=== PATIENT | female | born 1970 | race Caucasian/White ===

== ENCOUNTER → 2017-10-31 17:54 | Outpatient (CLI) | payer MEDICAID, SELFPAY | PROVIDERS: Family Provider Family Medicine; PCP Family Medicine; Visit Provider Family Medicine | DX: N39.0 Urinary tract infection, site not specified (principal) | CPT/HCPCS: 87086; 87088; 87186 ==

== ENCOUNTER → 2017-11-13 15:00 | Outpatient (CLI) | payer MEDICAID, SELFPAY ==
[2017-11-19 11:22] LABS: HPV Reflexed? NOT INDICATED
== END ==
PROVIDERS: Family Provider Family Medicine; PCP Family Medicine; Visit Provider Family Medicine
DX: Z01.419 Encounter for gynecological examination (general) (routine) without abnormal findings (principal)
CPT/HCPCS: 88175; G0145

== ENCOUNTER 2019-02-02 03:01 | Emergency (ER) | payer MEDICAID, SELFPAY ==
[2019-02-02 03:03] VITALS: BP 142/104; PULSE 90; RESP 16; TEMP 36.7; O2SAT 97; BMI 24.9
--- NOTE | 2019-02-02 03:05 | RAD_ITS ---
STUDY: X-RAY CHEST REASON FOR EXAM: Female, 48 years old. Chest pain. TECHNIQUE: Single AP portable view of the chest. COMPARISON: June 15, 2016. FINDINGS: Cardiac monitoring leads are present. The lungs are hyperexpanded. There is mild eventration of the hemidiaphragms. There is no evidence for airspace consolidation. There is no demonstrated pleural abnormality. There is borderline cardiomegaly. Normal mediastinum and hai. Normal visualized pulmonary arteries. Normal visualized aortic arch and descending thoracic aorta. Normal visualized thoracic spine. Normal visualized ribs, clavicles, and shoulders. There is no demonstrated abnormality of the visualized soft tissue structures of the upper abdomen. RAD/Chest 1 View (Portable) IMPRESSION: No radiographic evidence of acute cardiopulmonary disease. Electronically Signed: Bonnie Walker MD at 4:02 EDT , Service support ,
--- NOTE | 2019-02-02 03:05 | EKG12_ITS ---
Test Reason : CP Blood Pressure : / mmHG Vent. Rate : 077 BPM Atrial Rate : 077 BPM P-R Int : 150 ms QRS Dur : 086 ms QT Int : 398 ms P-R-T Axes : 073 064 060 degrees QTc Int : 450 ms Normal sinus rhythm Normal ECG Confirmed by IVANA LACY, PASQUALE ([id number]), video news editor PRASAD ROSEN ([id number]) on 02/05/2019 9:07:25 AM Referred By: AMAN Confirmed By:PASQUALE HEATH MD
--- NOTE | 2019-02-02 03:17 | ED.VISSUMM ---
- ER Visit Summary Date of Service: 02/02/19 Chief Complaint: Left-sided chest pain History of Present Illness: The patient is a 48 F reportedly history of CAD with a prior AL and cardiac stent. Prior ovarian cancer with a hysterectomy. Patient states at 2:30 AM this morning she started having left-sided chest pain. Associated nausea and vomiting and dyspnea. She is never had a DVT or PE. No calf pain or swelling. No hemoptysis. No recent travel nor hospitalization. Physical Examination: Middle-aged female. Vital signs are stable. Her pulse ox is 97% on room air no signs of hypoxia. H EENT exam unremarkable. She is actively retching into emesis bag. Sons at bedside. Neck nontender no JVD. Lungs clear to auscultation bilaterally. Heart regular rhythm rate about 90 no murmur. She has reproducible chest wall pain in her left chest wall. There is no ecchymosis or bruising. No redness or warmth. Abdomen is soft and nontender. Normal bowel sounds no peritoneal signs. Patient is moving all 4 extremities. Calves are nontender without edema or cords. Equal symmetrical radial pulses. Neurologically she is awake alert with no focal motor deficits. Patient is emotionally upset and tearful. She is somewhat verbally abusive to the staff. Test Results: Portable 1 view chest x-ray showed no acute abnormality read both myself and radiologist. Normal cardiac silhouette mediastinum. EKG sinus rhythm rate 77 no acute signs of AL nor ischemia. CBC normal with a white count of 10. Hemoglobin 13. Letter lites normal. Normal creatinine and gap. Cardiac enzymes troponin normal. Alcohol level 244 consistent with acute intoxication. Emergency Department Course and Treatment: Patient will undergo cardiac work-up for her left-sided reproducible chest pain. She will also be given p.o. aspirin and IV Phenergan for her nausea. Repeat exam at 0505 patient is doing well. Resting comfortably. Her son and I discussed all of her test results and her alcohol level. He states she has been drinking tonight. He is comfortable taking her home. Treatment Plan: No alcohol next 24 hours. Tylenol and Motrin for pain. Decrease alcohol use. Disposition: Discharge Impression: Acute chest pain Chest wall pain Acute alcohol intoxication This note was generated with [employer] dictation software. It may contain incorrect words, spelling, and punctuation that were not noted in review of the chart prior to signing ED Disposition - Plan for ED Patient: Referrals: Brianna Walker MD [Primary Care Provider] -
[2019-02-02 03:18] LABS: Absolute Lymphocyte Count 6.26 X10^3/ul (0.83-4.51); Absolute Neutrophil Count 3.1 X10^3/uL (2.0-7.7); Basophil# 0.07 X10^3/uL; Basophil% 0.7 % (0-1); Differential Indicated SCAN CRITERIA MET; Eosinophil# 0.28 X10^3/uL; Eosinophils% 2.7 % (0-5); Hematocrit 39.2 % (37-47); Hemoglobin 13.8 g/dl (12.0-15.0); Lymphocyte # 6.26 X10^3/ul (4.0); Lymphocyte % 60.6 % (19-41); Mean Corp Hgb Conc 35.2 g/gl (32-36); Mean Corpuscular Hgb 30.5 pg (27.0-32.0); Mean Corpuscular Volume 86.5 fL (81-99); Mean Platelet Vol. 9.8 fl (6.2-12.0); Monocyte# 0.63 X10^3/uL; Monocyte% 6.1 % (0-10); Neutrophil # 3.08 X10^3/uL (2.7-7.7); Neutrophil % 29.8 % (47-70); POSITIVE COUNT NO; POSITIVE DIFFERENTIAL YES; POSITIVE MORPHOLOGY NO; Platelet Count 254 K/mm3 (150-450); RBC Distribution Width CV 12.8 % (11.6-14.6); RBC Distribution Width SD 39.6 fl (35.1-43.9); Red Blood Count 4.53 M/mm3 (4.2-5.4); White Blood Count 10.3 K/mm3 (4.4-11.0)
--- NOTE | 2019-02-02 03:20 | ED.DCSUM_ITS ---
- ER Visit Summary Date of Service: 02/02/19 Chief Complaint: Left-sided chest pain History of Present Illness: The patient is a 48 F reportedly history of CAD with a prior SC and cardiac stent. Prior ovarian cancer with a hysterectomy. Patient states at 2:30 AM this morning she started having left-sided chest pain. Associated nausea and vomiting and dyspnea. She is never had a DVT or PE. No calf pain or swelling. No hemoptysis. No recent travel nor hospitalization. Physical Examination: Middle-aged female. Vital signs are stable. Her pulse ox is 97% on room air no signs of hypoxia. H EENT exam unremarkable. She is actively retching into emesis bag. Sons at bedside. Neck nontender no JVD. Lungs clear to auscultation bilaterally. Heart regular rhythm rate about 90 no murmur. She has reproducible chest wall pain in her left chest wall. There is no ecchymosis or bruising. No redness or warmth. Abdomen is soft and nontender. Normal bowel sounds no peritoneal signs. Patient is moving all 4 extremities. Calves are nontender without edema or cords. Equal symmetrical radial pulses. Neurologically she is awake alert with no focal motor deficits. Patient is emotionally upset and tearful. She is somewhat verbally abusive to the staff. Test Results: Portable 1 view chest x-ray showed no acute abnormality read both myself and radiologist. Normal cardiac silhouette mediastinum. EKG sinus rhythm rate 77 no acute signs of SC nor ischemia. CBC normal with a white count of 10. Hemoglobin 13. Letter lites normal. Normal creatinine and gap. Cardiac enzymes troponin normal. Alcohol level 244 consistent with acute intoxication. Emergency Department Course and Treatment: Patient will undergo cardiac work-up for her left-sided reproducible chest pain. She will also be given p.o. aspirin and IV Phenergan for her nausea. Repeat exam at 0505 patient is doing well. Resting comfortably. Her son and I discussed all of her test results and her alcohol level. He states she has been drinking tonight. He is comfortable taking her home. Treatment Plan: No alcohol next 24 hours. Tylenol and Motrin for pain. Decrease alcohol use. Disposition: Discharge Impression: Acute chest pain Chest wall pain Acute alcohol intoxication This note was generated with [employer] dictation software. It may contain incorrect words, spelling, and punctuation that were not noted in review of the chart prior to signing ED Disposition - Plan for ED Patient: Referrals: Brianna Walker MD [Primary Care Provider] -
[2019-02-02 03:32] LABS: Anion Gap 8 (5-15); BUN 6 mg/dL (7-18); BUN/Creat Ratio 9.4 RATIO (10-20); Calcium,Total 8.7 mg/dL (8.5-10.1); Chloride 110 mmol/L (98-107); Creatinine, Serum 0.64 mg/dL (0.55-1.02); EST Glomerular Filtration Rate 105 mL/min (>60); Est Glom Filt Rate - Afr Amer 127 mL/min (>60); Estimated Creatinine Clearance 91.82 ml/min; Glucose 93 mg/dL (74-106); Potassium 3.6 mmol/L (3.5-5.1); Sodium Level 142 mmol/L (136-145)
[2019-02-02] MEDS: proMETHazine 25 MG/ML Syringe 12.5 MG IV (03:37)
[2019-02-02 03:39] VITALS: O2SAT 96
[2019-02-02] MEDS: Aspirin 81 MG TAB.CHEW 324 MG PO (03:51)
[2019-02-02 03:53] VITALS: BP 93/75; PULSE 71; RESP 22
[2019-02-02 03:56] LABS: Differential Comment SCANNED; Reactive Lymphocyte 1+
--- NOTE | 2019-02-02 05:16 | ED.DEP ---
ED Disposition - Plan for ED Patient: Disposition: Home or Assisted Living Instructions: ED Chest Pain Atypical Unkn Cause, ED Alcohol Intoxication Referrals: Ceci Sylvester MD [STAFF PHYSICIAN] - 1 Week if not improving Additional Instructions: Your tests are unremarkable other than being intoxicated. Decrease her alcohol use. Motrin for pain ice to left chest wall
[2019-02-02 05:32] VITALS: BP 88/58; PULSE 70; RESP 18; O2SAT 97
== END 2019-02-02 05:49 | disposition home or self-care (01) ==
PROVIDERS: Emergency Provider Emergency Medicine; Family Provider Pediatrics; PCP Pediatrics
DX: R07.89 Other chest pain (principal); F10.129 Alcohol abuse with intoxication, unspecified; I25.10 Atherosclerotic heart disease of native coronary artery without angina pectoris; I25.2 Old myocardial infarction; Z95.5 Presence of coronary angioplasty implant and graft; Z72.0 Tobacco use; Y90.8 Blood alcohol level of 240 mg/100 ml or more; Z85.43 Personal history of malignant neoplasm of ovary; Z90.710 Acquired absence of both cervix and uterus
CPT/HCPCS: 71045; 80048; 80320; 84484; 85025; 93005; 96374; 99285; A4216; G0480

== ENCOUNTER 2019-04-22 15:38 | Emergency (ER) | payer MEDICAID, SELFPAY ==
[2019-04-22 15:39] VITALS: BP 110/80; PULSE 76; RESP 14; TEMP 36.2; O2SAT 98; BMI 21.7
--- NOTE | 2019-04-22 15:55 | RAD_ITS ---
STUDY: X-RAY CHEST REASON FOR EXAM: Female, 48 years old. Short of breath TECHNIQUE: Single AP portable view of the chest. COMPARISON: Prior study of 02/02/2019 FINDINGS: There is a right lower lobe infiltrate. There is no demonstrated pleural abnormality. Normal size heart. Normal mediastinum and hai. Normal visualized pulmonary arteries. Normal visualized aortic arch and descending thoracic aorta. Normal visualized thoracic spine. Normal visualized ribs, clavicles, and shoulders. There is no demonstrated abnormality of the visualized soft tissue structures of the upper abdomen. RAD/Chest 1 View (Portable) IMPRESSION: Right lower lobe infiltrate, new in the interval. Electronically Signed: Sergio Cote MD at 16:18 EDT , Service support ,
--- NOTE | 2019-04-22 15:55 | EKG12_ITS ---
Test Reason : COMPLAINT Blood Pressure : / mmHG Vent. Rate : 068 BPM Atrial Rate : 068 BPM P-R Int : 144 ms QRS Dur : 080 ms QT Int : 414 ms P-R-T Axes : 064 056 056 degrees QTc Int : 440 ms Normal sinus rhythm Normal ECG Confirmed by TE RAM ([id number]), image editor PRASAD ROSEN ([id number]) on 04/24/2019 2:40:30 PM Referred By: Confirmed By:TE RAM
--- NOTE | 2019-04-22 16:07 | ED.VISSUMM ---
- ER Visit Summary Date of Service: 04/22/19 Chief Complaint: Dysuria, cough History of Present Illness: The patient is a 48 F presenting with burning with urination and cough. She states she has had burning with urination for the past 2 months. She states she initially tried Pyridium and leftover antibiotics. She states she has been busy with moving and has had persistent symptoms. She complains of a nonproductive cough for the past 3 days. She has chest pain only with deep breathing and coughing over the past 3 days. Denies PE/DVT risk factors. She is a smoker. Physical Examination: Vitals are stable. Patient is afebrile. Alert no acute distress. HEENT exam is unremarkable. Neck is supple. Lungs are clear and equal bilaterally. Heart is regular rate and rhythm. Chest tenderness to palpation with no crepitus Abdomen is soft nontender nondistended. No guarding or rebound Back bilateral CVA tenderness Extremities are unremarkable. Skin is warm and dry. No focal neurologic deficit. Remainder of exam is unremarkable. Emergency Department Course and Treatment: EKG is sinus rhythm rate of 68 with no acute ischemic changes. Chest x-ray shows right lower lobe infiltrate, new in the interval. CBC, chemistries unremarkable other than potassium 3.3, glucose 112. Urinalysis shows positive leukocytes, 5-10 white blood cells, 1+ bacteria. Troponin is negative. D-dimer negative. With ambulation her pulse ox remains 98% on room air. She is resting comfortably on reevaluation. She is given Levaquin. Advised to follow-up with Dr. Finn on-call for no doctor. Advised return to ED if worsening complaints. Disposition: Discharge home Impression: UTI, community acquired pneumonia This note was generated with [employer] dictation software. It may contain incorrect words, spelling, and punctuation that were not noted in review of the chart prior to signing ED Disposition - Plan for ED Patient: Instructions: PNEUMONIA (Adult), Bladder Infection, Female (Adult) Prescriptions: Levofloxacin [Levaquin] 750 mg PO DAILY #7 tab Prescription Printed Referrals: Lex Finn DO [NON CLINICAL AFFILIATE] -
[2019-04-22 16:24] LABS: Absolute Lymphocyte Count 2.49 X10^3/uL (0.83-4.51); Absolute Neutrophil Count 3.3 X10^3/uL (2.0-7.7); Basophil# 0.04 X10^3/uL; Basophil% 0.6 % (0-1); Eosinophil# 0.12 X10^3/uL; Eosinophils% 1.8 % (0-5); Hematocrit 39.1 % (37-47); Hemoglobin 13.5 g/dL (12.0-15.0); Lymphocyte # 2.49 X10^3/ul (4.0); Mean Corp Hgb Conc 34.5 g/dL (32-36); Mean Corpuscular Hgb 30.8 pg (27.0-32.0); Mean Corpuscular Volume 89.1 fL (81-99); Mean Platelet Vol. 10.1 fl (6.2-12.0); Monocyte# 0.58 X10^3/uL; Monocyte% 8.8 % (0-10); NRBC Flagged by Analyzer 0 % (0-5); Neutrophil # 3.31 X10^3/uL (2.7-7.7); Neutrophil % 50.5 % (47-70); Platelet Count 197 K/mm3 (150-450); RBC Distribution Width CV 12.7 % (11.6-14.6); RBC Distribution Width SD 41.3 fl (35.1-43.9); Red Blood Count 4.39 M/mm3 (4.2-5.4); White Blood Count 6.6 K/mm3 (4.4-11.0)
[2019-04-22 16:28] LABS: Mucous, Urine 0 SEEN /hpf (<or=2+); Red Blood Cells-Urine 0 SEEN /hpf (0-5)
[2019-04-22 16:37] LABS: Color, Urine Yellow (Yellow); Glucose, Dipstick Normal (Normal); Ketone-Dipstick Negative (Negative); Leukocyte Esterase-Dipstick 500 /ul (Negative); Nitrite-Dipstick Negative (Negative); Occult Blood-Urine 25 /ul (Negative); Protein-Dipstick Negative (Negative); Urine Bilirubin Dipstick Negative (Negative); Urine Clarity Clear (Clear); Urine Urobilinogen Normal (Normal)
[2019-04-22 16:41] LABS: Anion Gap 6 (5-15); BUN 8 mg/dL (7-18); BUN/Creat Ratio 11.6 RATIO (10-20); Calcium,Total 8.7 mg/dL (8.5-10.1); Chloride 110 mmol/L (98-107); Creatinine, Serum 0.69 mg/dL (0.55-1.02); EST Glomerular Filtration Rate 96 mL/min (>60); Est Glom Filt Rate - Afr Amer 116 mL/min (>60); Estimated Creatinine Clearance 85.17 ml/min; Glucose 112 mg/dL (74-106); Potassium 3.3 mmol/L (3.5-5.1); Sodium Level 141 mmol/L (136-145)
[2019-04-22 16:43] LABS: Squamous Epithelial Cells - UA 0-5 SEEN /hpf (5-10); White Blood Cells 5-10 SEEN /hpf (0-5)
[2019-04-22 16:44] LABS: Bacteria 1+ /hpf (None Seen)
[2019-04-22 16:51] LABS: D-Dimer Quantitative (DVT/PE) 0.36 FEU/ug/m (0.27-0.49)
[2019-04-22 17:51] VITALS: RESP 18; O2SAT 100
--- NOTE | 2019-04-22 17:53 | ED.DEP ---
ED Disposition - Plan for ED Patient: Instructions: Bladder Infection, Female (Adult), PNEUMONIA (Adult) Prescriptions: Levofloxacin [Levaquin] 750 mg PO DAILY #7 tablet Referrals: Lex Finn DO [NON CLINICAL AFFILIATE] -
[2019-04-22] MEDS: levoFLOXacin 750 MG Tablet PO (18:17)
== END 2019-04-22 18:23 | disposition home or self-care (01) ==
LOC: ED 16:11
PROVIDERS: Emergency Provider Emergency Medicine
DX: N39.0 Urinary tract infection, site not specified (principal); J18.9 Pneumonia, unspecified organism; I25.10 Atherosclerotic heart disease of native coronary artery without angina pectoris; Z95.5 Presence of coronary angioplasty implant and graft; F17.200 Nicotine dependence, unspecified, uncomplicated
CPT/HCPCS: 71045; 80048; 81001; 84484; 85025; 85379; 93005; 99285; A4216

== ENCOUNTER 2020-04-29 17:31 | Emergency (ER) | payer MEDICAID, SELFPAY ==
[2020-04-29 17:32] VITALS: BP 150/126; PULSE 89; RESP 20; TEMP 36.5; O2SAT 98; BMI 24.9
--- NOTE | 2020-04-29 17:43 | EKG12_ITS ---
Test Reason : Blood Pressure : / mmHG Vent. Rate : 090 BPM Atrial Rate : 090 BPM P-R Int : 132 ms QRS Dur : 082 ms QT Int : 362 ms P-R-T Axes : 074 052 056 degrees QTc Int : 442 ms Normal sinus rhythm with sinus arrhythmia Normal ECG Confirmed by DANICA LACY, SAMANTHA ([id number]), associate editor PRASAD ROSEN ([id number]) on 05/07/2020 11:16:43 A M Referred By: YAW Confirmed By:VIOLETTE MISHRA MD
--- NOTE | 2020-04-29 18:05 | RAD_ITS ---
STUDY: X-RAY CHEST REASON FOR EXAM: Female, 49 years old. chest pain TECHNIQUE: Single AP portable view of the chest. COMPARISON: April 22 2019 FINDINGS: 1.62 cm nodule is seen in the lateral aspect of the left lower lobe concerning for malignancy. This was not seen on the prior study. Evaluation with chest CT is recommended. The remaining bilateral lung shook are clear. The lungs are clear and expanded. There is no demonstrated pleural abnormality. Normal size heart. Normal mediastinum and hai. Normal visualized pulmonary arteries. Normal visualized aortic arch and descending thoracic aorta. Normal visualized thoracic spine. Normal visualized ribs, clavicles, and shoulders. There is no demonstrated abnormality of the visualized soft tissue structures of the upper abdomen. RAD/Chest 1 View (Portable) IMPRESSION: 1. 1.62 cm nodule is seen in the lateral aspect of the left lower lobe concerning for malignancy. This was not seen on the prior study. 2. Evaluation with chest CT is recommended. The remaining bilateral lung shook are clear. Electronically Signed: Venu Hollins MD at 18:36 EDT , Service support ,
[2020-04-29 18:06] LABS: Absolute Lymphocyte Count 3.56 X10^3/uL (0.83-4.51); Absolute Neutrophil Count 3.3 X10^3/uL (2.0-7.7); Basophil# 0.05 X10^3/uL; Basophil% 0.7 % (0-1); Eosinophil# 0.15 X10^3/uL; Hematocrit 44.4 % (37-47); Hemoglobin 15.2 g/dL (12.0-15.0); Lymphocyte # 3.56 X10^3/ul (4.0); Lymphocyte % 47.5 % (19-41); Mean Corp Hgb Conc 34.2 g/dL (32-36); Mean Corpuscular Volume 90.6 fL (81-99); Monocyte# 0.41 X10^3/uL; Monocyte% 5.5 % (0-10); NRBC Flagged by Analyzer 0 % (0-5); Neutrophil # 3.32 X10^3/uL (2.7-7.7); Neutrophil % 44.2 % (47-70); Platelet Count 279 K/mm3 (150-450); RBC Distribution Width CV 12.8 % (11.6-14.6); RBC Distribution Width SD 42.2 fl (35.1-43.9); White Blood Count 7.5 K/mm3 (4.4-11.0)
[2020-04-29 18:17] LABS: Prothrombin Time (Protime)PT. 12.8 SECONDS (11.7-14.9)
[2020-04-29 18:19] LABS: D-Dimer Quantitative (DVT/PE) 0.28 FEU/ug/m (0.27-0.49)
[2020-04-29 18:27] LABS: Anion Gap 4 (5-15); BUN 15 mg/dL (7-18); BUN/Creat Ratio 18.4 RATIO (10-20); Calcium,Total 9.6 mg/dL (8.5-10.1); Chloride 107 mmol/L (98-107); Creatinine, Serum 0.81 mg/dL (0.55-1.02); EST Glomerular Filtration Rate 79 mL/min (>60); Est Glom Filt Rate - Afr Amer 95 mL/min (>60); Estimated Creatinine Clearance 71.75 ml/min; Glucose 92 mg/dL (74-106); Potassium 3.6 mmol/L (3.5-5.1); Sodium Level 139 mmol/L (136-145)
[2020-04-29] MEDS: Ondansetron 4 MG/2 ML Vial IM (18:56)
--- NOTE | 2020-04-29 19:34 | CT_ITS ---
STUDY: CTA CHEST REASON FOR EXAM: Female, 49 years old. CHEST PAIN ,ELEVATED BP -- HX:HTN,NJ WITH STENT,CAD,HLD,SMOKER,CERVICAL AND OVARIAN CANCER RADIATION DOSAGE (If Supplied By Facility): CTDIvol = ( 7.69 ) mGy, DLP = ( 224.19 ) mGycm TECHNIQUE: The examination was performed with the intravenous administration of IV 100mL Isovue-370. Post-processing of the angiographic images was performed, with multiplanar reformation and 3D reconstruction. Individualized dose optimization techniques were used for this CT. COMPARISON: None. FINDINGS: Normal enhancement of the main pulmonary artery and right and left pulmonary arteries. Normal enhancement of the bilateral peripheral pulmonary arteries. There is no demonstrated pulmonary embolism. There is atherosclerotic calcification of the aortic arch with tortuosity. There is no demonstrated aortic dissection. Normal heart size and pericardium. There are endovascular stent(s) present. Normal mediastinum. Normal hilar regions. Normal visualized trachea and bronchi. The lungs are well expanded. Normal pulmonary parenchyma. No demonstrated pulmonary edema or pleural effusion or consolidation. Normal pleura. Normal chest wall structures. There are degenerative changes of thoracic spine. Normal visualized upper abdomen. CT/CTA Chest W/WO Contrast IMPRESSION: 1. No demonstrated pulmonary embolism or arterial dissection. 2. No demonstrated pulmonary edema or pleural effusion or consolidation. Electronically Signed: Venu Hollins MD at 20:38 EDT , Service support ,
[2020-04-29 20:42] VITALS: PULSE 76; RESP 18
--- NOTE | 2020-04-29 21:36 | ED.DCSUM_ITS ---
History of Present Illness Chief Complaint: Chest Pain Narrative: 49-year-old female presenting with symptoms of viral illness which have been ongoing for 2 weeks. She has had myalgias and fevers and has had chest pressure which is been constant for 3 days. She states it waxes and wanes in severity. Sometimes she gets intermittent sharp pains. She describes this as the left side of the chest but there is no radiation of the pain. She is not short of breath. She has had some episodes of nausea but she just feels rundown at this point. States initially she had a sore throat and myalgias. Her last fever was 3 days ago. She has a history of stent in the LAD and states that she has not been taking care of herself well and not been taking her medications for hyperlipidemia, hypertension, GERD. In addition to this she continues to smoke cigarettes. She states she was tested for COVID?19 and got a report back on the way to the hospital that was negative. Viral syndrome started exactly 2 weeks ago. - Past Medical History (1) HLD (hyperlipidemia) Status: Chronic (2) History of coronary artery disease Status: Chronic Past Medical History - Allergies and Home Meds Allergies/Adverse Reactions: Allergies albuterol Allergy (Mild, Verified 04/29/20 17:38) unknown penicillin V Allergy (Mild, Verified 04/29/20 17:38) unkonwn amoxicillin Allergy (Verified 04/29/20 17:38) Hives Primary Care Physician: Care Physician,No Primary [Primary Care Provider] - Past Medical History: - - MD, cardiac stent in LAD, hyperlipidemia, hypertension, GERD Surgical History: no surgical history Lives: Alone Smoking Status: Current every day smoker Alcohol: None Drugs: None Review of Systems General: Reports: Chills, Fever, Malaise Eyes: Denies: Visual changes - bilaterally, Diplopia ENT: Reports: Sore throat. Denies: Rhinorrhea Cardiovascular: Reports: Chest pain. Denies: Palpitations Respiratory: Reports: Cough, Sputum Gastrointestinal: Reports: Nausea, Vomiting Genitourinary: Denies: Dysuria, Hematuria Musculoskeletal: Reports: Myalgias. Denies: Neck pain, Back pain Skin: Denies: Rash, Abscess Neurological: Reports: Headache Physical Exam Vital Signs/Narrative: Vital Signs Pulse Resp 04/29/20 20:42 76 18 Inital Vital Signs reviewed: Yes General: Well nourished, No Acute Distress Head: Normocephalic, Atraumatic Eyes: Perrl, EOMI. Negative for: Pale conjunctiva ENT: Moist mucous membranes. Negative for: No rhinorrhea Cardiovascular: Regular rate, Regular rhythm Respiratory: No distress, CTA bilaterally, Chest nontender Extremities: Nontender, No edema Skin: Normal color, No rash. Negative for: Cyanosis Neurological: Alert, Oriented x3 Psychological: Normal affect Diagnostic/Tx/Re-eval Clinical Impression(s) from Imaging Studies Chest X-Ray 04/29/20 18:05 IMPRESSION: 1. 1.62 cm nodule is seen in the lateral aspect of the left lower lobe concerning for malignancy. This was not seen on the prior study. 2. Evaluation with chest CT is recommended. The remaining bilateral lung shook are clear. Electronically Signed: Venu Hollins MD at 18:36 EDT , Service support , Chest CTA 04/29/20 19:34 IMPRESSION: 1. No demonstrated pulmonary embolism or arterial dissection. 2. No demonstrated pulmonary edema or pleural effusion or consolidation. Electronically Signed: Venu Hollins MD at 20:38 EDT , Service support , Laboratory Data 04/29/20 04/29/20 04/29/20 17:40 17:40 17:40 WBC 7.5 RBC 4.90 Hgb 15.2 H Hct 44.4 MCV 90.6 MCH 31.0 MCHC 34.2 RDW Std Deviation 42.2 RDW Coeff of Matt 12.8 Plt Count 279 MPV 10.0 Immature Gran % (Auto) 0.100 Neut % (Auto) 44.2 L Lymph % (Auto) 47.5 H Metcalfe % (Auto) 5.5 Eos % (Auto) 2.0 Baso % (Auto) 0.7 Absolute Neuts (auto) 3.3 Absolute Lymphs (auto) 3.56 Nucleated RBC % 0 PT 12.8 INR 1.0 D-Dimer Quant (PE/DVT) 0.28 Sodium 139 Potassium 3.6 Chloride 107 Carbon Dioxide 28.0 Anion Gap 4 L BUN 15 Creatinine 0.81 Estim Creat Clear Calc 71.75 Est GFR (MDRD) Af Amer 95 Est GFR (MDRD) Non-Af 79 BUN/Creatinine Ratio 18.4 Glucose 92 Calcium 9.6 Troponin I < 0.015 - Medical Decision Making Patient presents with constant chest pressure for the last 3 days and she has been noncompliant with her medicine as well as smoking cigarettes. Heart score is 2. Her troponin was negative. EKG is sinus rhythm without signs of ischemia and there is no interval change in her EKG. Given that she has had 3 days of constant chest pain I do not believe she needs a delta troponin and EKG. Her d- dimer is negative. Lab work is otherwise unremarkable. The radiologist did believe that she had a pulmonary nodule on her chest x-ray and this was reported to the patient. Given this we did get a CT scan of the chest which did not identify a pulmonary nodule. There was no acute process on the CTA and given these findings I think the patient is stable to be discharged home. She was given a primary care physician to follow-up with. She is counseled on discontinuing smoking cessation. She was given a prescription for nicotine patches. She is given return precautions. Impression: 1. Chest pain 2. Viral syndrome 3. Concern for pulmonary nodule not found ED Disposition - Plan for ED Patient: Disposition: Home or Assisted Living Instructions: ED Viral Syndrome, ED Chest Pain [facility] Prescriptions: Nicotine [Nicotine Patch] 1 ea TD DAILY #14 patch.[id number] Prescription Printed Referrals: Care Physician,No Primary [Primary Care Provider] -
[2020-04-29 21:41] VITALS: BP 114/76; PULSE 83; RESP 18
== END 2020-04-29 21:55 | disposition home or self-care (01) ==
PROVIDERS: Emergency Provider Student in an Organized Health Care Education/Training Program
DX: R07.9 Chest pain, unspecified (principal); B34.9 Viral infection, unspecified; E78.5 Hyperlipidemia, unspecified; I10 Essential (primary) hypertension; I25.10 Atherosclerotic heart disease of native coronary artery without angina pectoris; R91.1 Solitary pulmonary nodule; K21.9 Gastro-esophageal reflux disease without esophagitis; F17.210 Nicotine dependence, cigarettes, uncomplicated; Z85.43 Personal history of malignant neoplasm of ovary; Z88.0 Allergy status to penicillin; Z95.5 Presence of coronary angioplasty implant and graft; Z91.19 Patient's noncompliance with other medical treatment and regimen
CPT/HCPCS: 71045; 71275; 80048; 84484; 85025; 85379; 85610; 93005; 99284; Q9967; A4216; J2405

== ENCOUNTER 2020-07-12 01:09 | Emergency (ER) | payer MEDICAID, SELFPAY ==
[2020-07-12 01:10] VITALS: BP 127/77; PULSE 67; RESP 18; TEMP 36.1; O2SAT 99; BMI 26.3
[2020-07-12 01:14] VITALS: BP 115/77; PULSE 69; RESP 19; O2SAT 99
--- NOTE | 2020-07-12 01:37 | EKG12_ITS ---
Test Reason : CP Blood Pressure : / mmHG Vent. Rate : 060 BPM Atrial Rate : 060 BPM P-R Int : 148 ms QRS Dur : 080 ms QT Int : 450 ms P-R-T Axes : 062 055 045 degrees QTc Int : 450 ms Normal sinus rhythm Normal ECG Confirmed by IDALMIS LACY, ARIANNA ([id number]), news assignment editor PRASAD ROSEN ([id number]) on 07/13/2020 11:34:36 AM Referred By: JEFFREY Confirmed By:ARIANNA RAYGOZA MD
--- NOTE | 2020-07-12 01:37 | ED.VIS.GEN ---
History of Present Illness Chief Complaint: Chest Pain Informant: Patient Narrative: She states she woke up an hour ago with nausea sweats and a dull achy epigastric abdominal pain. She went to the bathroom and had one episode of emesis and diarrhea. Unsure what the cause was. No bad food exposures or recent antibiotics. She recently started back up on her citalopram antidepressant. She is unsure if that is the cause. Denies any shortness of breath. She denies any actual pain in her chest. EMS gave her aspirin to be safe as she has a history of AL in the past with cardiac stent. This does not feel similar. She feels normal now. She felt better after she vomited. - Past Medical History (1) HLD (hyperlipidemia) Status: Chronic (2) History of coronary artery disease Status: Chronic Past Medical History - Allergies and Home Meds Allergies/Adverse Reactions: Allergies albuterol Allergy (Mild, Verified 04/29/20 17:38) unknown penicillin V Allergy (Mild, Verified 04/29/20 17:38) unkonwn amoxicillin Allergy (Verified 04/29/20 17:38) Hives Primary Care Physician: Care Physician,No Primary [Primary Care Provider] - Prior records reviewed: Yes Past Medical History: - - See HPI Surgical History: - - Cardiac stent Smoking Status: Current every day smoker Alcohol: None Drugs: None Review of Systems General: Denies: Chills, Fever, Sweats Eyes: Denies: Visual changes - bilaterally, Diplopia ENT: Denies: Rhinorrhea, Sore throat Cardiovascular: Denies: Chest pain, Palpitations Respiratory: Denies: Dyspnea, Cough, Dyspnea on exertion Gastrointestinal: Reports: Abdominal pain, Nausea, Vomiting, Diarrhea. Denies: Melena, Hematochezia Genitourinary: Denies: Dysuria, Hematuria, Frequency Musculoskeletal: Denies: Back pain, Extremity Pain Skin: Denies: Rash, Wounds Neurological: Denies: Headache, Weakness, Numbness Physical Exam Vital Signs/Narrative: Vital Signs Temp Pulse Resp BP Pulse Ox 07/12/20 01:14 69 19 H 115/77 99 07/12/20 01:10 96.9 F L 67 18 127/77 H 99 General: Well nourished, Well developed, No Acute Distress Head: Normocephalic, Atraumatic Eyes: Perrl, EOMI ENT: Moist mucous membranes, No rhinorrhea Neck: Supple, Nontender Cardiovascular: Regular rate, Regular rhythm, No murmurs Respiratory: No distress, CTA bilaterally, Chest nontender Abdomen: Soft, Nontender, Nondistended, Normal bowel sounds Back: Nontender, Normal Inspection Extremities: Nontender, No edema Skin: Normal color, No rash Neurological: Alert, Oriented x3, Cranial nerves II-XII grossly intact, Normal Strength, Normal Sensation Psychological: Normal affect, Normal Mood Diagnostic/Tx/Re-eval - Medical Decision Making EKG obtained upon arrival shows sinus rhythm at a rate of 60 with no acute ischemia or arrhythmia. Given IV fluids Zofran. Lab work obtained. Work unremarkable including CBC BMP liver lipase troponin. Given GI cocktail also for sour stomach which relieved her symptoms. I suspect this is GI related and not cardiac. She may have a mild case of gastroenteritis. Will be given Zofran for home. Will use [id number] Pepto-Bismol Imodium follow-up as an outpatient ED Disposition - Plan for ED Patient: Disposition: Home or Assisted Living Diagnosis: Nausea and vomiting, Diarrhea, Abdominal pain Instructions: ED Vomiting and Diarrhea Nonspecific Adult Prescriptions: Ondansetron [Zofran Odt] 8 mg PO Q8H PRN PRN #20 tab PRN Reason: Nausea Prescription Printed Referrals: Daniel Powers MD [STAFF PHYSICIAN] -
[2020-07-12] MEDS: 0.9% Normal Saline 1,000 ML 1000 ML IV (01:43)
[2020-07-12] MEDS: Ondansetron 4 MG/2 ML Vial IV (01:43)
[2020-07-12 01:45] LABS: Absolute Lymphocyte Count 6.13 X10^3/uL (0.83-4.51); Absolute Neutrophil Count 3.4 X10^3/uL (2.0-7.7); Basophil# 0.09 X10^3/uL; Basophil% 0.8 % (0-1); Eosinophil# 0.26 X10^3/uL; Eosinophils% 2.5 % (0-5); Hematocrit 44.6 % (37-47); Hemoglobin 14.8 g/dL (12.0-15.0); Lymphocyte # 6.13 X10^3/ul (4.0); Lymphocyte % 57.9 % (19-41); Mean Corp Hgb Conc 33.2 g/dL (32-36); Mean Corpuscular Hgb 30.9 pg (27.0-32.0); Mean Corpuscular Volume 93.1 fL (81-99); Mean Platelet Vol. 9.8 fl (6.2-12.0); Monocyte# 0.63 X10^3/uL; Monocyte% 5.9 % (0-10); NRBC Flagged by Analyzer 0 % (0-5); Neutrophil # 3.43 X10^3/uL (2.7-7.7); Neutrophil % 32.4 % (47-70); POSITIVE DIFFERENTIAL YES; Platelet Count 261 K/mm3 (150-450); RBC Distribution Width CV 13.2 % (11.6-14.6); RBC Distribution Width SD 44.6 fl (35.1-43.9); Red Blood Count 4.79 M/mm3 (4.2-5.4); White Blood Count 10.6 K/mm3 (4.4-11.0)
[2020-07-12 01:46] LABS: Differential Indicated SCAN CRITERIA MET
[2020-07-12 02:00] LABS: ALB/GLOB Ratio 0.8 RATIO (0.9-2.4); AST(SGOT) 14 U/L (15-37); Alanine Aminotransfer ALT/SGPT 20 U/L (13-56); Albumin, Serum 3.6 g/dL (3.2-5.0); Alkaline Phosphatase 84 U/L (45-117); Anion Gap 5 (5-15); BUN 13 mg/dL (7-18); BUN/Creat Ratio 18.7 RATIO (10-20); Calcium,Total 8.7 mg/dL (8.5-10.1); Chloride 107 mmol/L (98-107); EST Glomerular Filtration Rate 94 mL/min (>60); Est Glom Filt Rate - Afr Amer 114 mL/min (>60); Estimated Creatinine Clearance 86.52 ml/min; Globulin 4.4 g/dL (2.2-4.2); Glucose 110 mg/dL (74-106); Lipase 249 U/L (73-393); Potassium 3.7 mmol/L (3.5-5.1); Sodium Level 139 mmol/L (136-145)
[2020-07-12 02:03] LABS: Differential Comment SCANNED
[2020-07-12] MEDS: Mag Hydrox/Al Hydrox/Simeth 30 ML UDC PO (02:21)
[2020-07-12 02:39] VITALS: BP 130/70; PULSE 74; RESP 24; O2SAT 99
== END 2020-07-12 02:40 | disposition home or self-care (01) ==
PROVIDERS: Emergency Provider Emergency Medicine
DX: R11.2 Nausea with vomiting, unspecified (principal); R19.7 Diarrhea, unspecified; R10.9 Unspecified abdominal pain; E78.5 Hyperlipidemia, unspecified; I25.10 Atherosclerotic heart disease of native coronary artery without angina pectoris; I25.2 Old myocardial infarction; F17.200 Nicotine dependence, unspecified, uncomplicated; Z88.0 Allergy status to penicillin; Z95.5 Presence of coronary angioplasty implant and graft
CPT/HCPCS: 80053; 83690; 84484; 85025; 93005; 99285; J7030; A4216; J2405

== ENCOUNTER 2021-08-07 14:47 | Inpatient (IN) | payer MEDICAID, SELFPAY ==
[2021-08-07] VITALS (7 sets, daily range): BP systolic 134–151; BP diastolic 81–98; PULSE 70–89; RESP 14–19; TEMP 36.3–36.6; O2SAT 96–100; BMI 27.1; BMI 25.9
--- NOTE | 2021-08-07 15:04 | EKG12_ITS ---
Test Reason : CP Blood Pressure : / mmHG Vent. Rate : 057 BPM Atrial Rate : 057 BPM P-R Int : 164 ms QRS Dur : 086 ms QT Int : 434 ms P-R-T Axes : 012 033 026 degrees QTc Int : 422 ms Sinus bradycardia Otherwise normal ECG Confirmed by IVANA LACY, PASQUALE ([id number]), video editor PRASAD ROSEN ([id number]) on 08/10/2021 8:58:45 AM Referred By: NAOMY/SHONNA Confirmed By:PASQUALE HEATH MD
[2021-08-07 15:18] LABS: Absolute Lymphocyte Count 5.91 X10^3/uL (0.83-4.51); Absolute Neutrophil Count 6.8 X10^3/uL (2.0-7.7); Basophil% 0.7 % (0-1); Eosinophil# 0.12 X10^3/uL; Eosinophils% 0.9 % (0-5); Hematocrit 44.8 % (37-47); Hemoglobin 15.3 g/dL (12.0-15.0); Lymphocyte # 5.91 X10^3/ul (0.83-4.51); Lymphocyte % 43.8 % (19-41); Mean Corp Hgb Conc 34.2 g/dL (32-36); Mean Corpuscular Hgb 30.1 pg (27.0-32.0); Mean Platelet Vol. 10.6 fl (6.2-12.0); Monocyte# 0.44 X10^3/uL; Monocyte% 3.3 % (0-10); NRBC Flagged by Analyzer 0 % (0-5); Neutrophil # 6.84 X10^3/uL (2.7-7.7); Neutrophil % 50.8 % (47-70); POSITIVE DIFFERENTIAL YES; Platelet Count 316 K/mm3 (150-450); RBC Distribution Width CV 12.9 % (11.6-14.6); RBC Distribution Width SD 41.8 fl (35.1-43.9); Red Blood Count 5.09 M/mm3 (4.2-5.4); White Blood Count 13.5 K/mm3 (4.4-11.0)
[2021-08-07] MEDS: Morphine 4 MG/ML Syringe IV ×2 (15:23→16:25)
[2021-08-07] MEDS: Ondansetron 4 MG/2 ML Vial IV ×2 (15:23→23:19)
[2021-08-07] MEDS: Aspirin 81 MG TAB.CHEW 324 MG PO (15:23)
--- NOTE | 2021-08-07 15:25 | RAD_ITS ---
STUDY: X-RAY CHEST REASON FOR EXAM: Female, 51 years old. chest pain nausea vomiting and chills TECHNIQUE: Frontal portable view of the chest COMPARISON: 29 April 2020 FINDINGS: The lungs are clear and expanded. There is no demonstrated pleural abnormality. Normal size heart. Normal mediastinum and hai. Normal visualized pulmonary arteries. Normal visualized aortic arch and descending thoracic aorta. Normal visualized thoracic spine. Normal visualized ribs, clavicles, and shoulders. There is no demonstrated abnormality of the visualized soft tissue structures of the upper abdomen. RAD/Chest 1 View (Portable) IMPRESSION: Normal x-ray examination of the chest. Electronically Signed: Reza Antonio MD at 16:04 EST Tel , Service support ,
[2021-08-07 15:27] LABS: Differential Indicated SCAN CRITERIA MET
[2021-08-07 15:33] LABS: Anion Gap 9 (5-15); BUN 6 mg/dL (7-18); BUN/Creat Ratio 7.5 RATIO (10-20); Calcium,Total 9.9 mg/dL (8.5-10.1); Chloride 109 mmol/L (98-107); EST Glomerular Filtration Rate 80 mL/min (>60); Est Glom Filt Rate - Afr Amer 97 mL/min (>60); Estimated Creatinine Clearance 71.03 ml/min; Glucose 105 mg/dL (74-106); Potassium 2.9 mmol/L (3.5-5.1); Sodium Level 142 mmol/L (136-145); Troponin-I HS 65 pg/mL (3.0-54.0)
[2021-08-07 15:52] LABS: Differential Comment SCANNED
[2021-08-07] MEDS: proMETHazine 25 MG/ML Syringe 12.5 MG IM (16:24)
[2021-08-07 17:17] LABS: Magnesium 1.9 mg/dL (1.6-2.6); Troponin-I HS 105 pg/mL (3.0-54.0)
--- NOTE | 2021-08-07 17:50 | EDS_ITS ---
HPI History of Present Illness Chief Complaint: General Illness Narrative Narrative: Patient has chest pain for 2 days. History of coronary disease. Stent placed 10 years ago. 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 She said she is compliant with her medications. History of elevated cholesterol. Denies any history of DVT or PE. Denies any history of aortic disease. She did have a CTA of her chest about a year ago. Her last stress test was many years ago. She has some associated chills and nausea. No other associated symptoms. Nothing seems to make this better or worse. PFSH PFSH Medical History Heart disease Home Medications nicotine 1 ea TD DAILY #14 patch.td24 04/29/20 [Rx Last Taken Unknown] ondansetron 8 mg PO Q8H PRN PRN #20 tab 07/12/20 [Rx Last Taken Unknown] Allergy/AdvReac Type Severity Reaction Status Date / Time albuterol Allergy Mild unknown Verified 08/07/21 14:52 penicillin V Allergy Mild unkonwn Verified 08/07/21 14:52 amoxicillin Allergy Hives Verified 08/07/21 14:52 Family History Other Arthritis CVA (cerebral vascular accident) Cancer Hypertension Myocardial infarction Surgical History History of intravascular stent placement Social History Smoking Status: Current every day smoker tobacco type: cigarettes Tobacco: How many years used: 30 ROS ROS ED Constitutional Constitutional ED: Reports chills; Denies fever(s) Eyes Eyes: Denies change in vision ENT ENT ED: Denies ear pain Cardiovascular Cardiovascular: Reports chest pain; Denies palpitations or racing heartbeat Respiratory/Chest Respiratory/Chest: Denies cough or dyspnea Gastrointestinal Gastrointestinal: Reports nausea; Denies abdominal pain Genitourinary Genitourinary ED: Denies dysuria or hematuria Musculoskeletal Musculoskeletal: Denies arthralgias or myalgias Integumentary Denies rash Neurologic Neurologic: Denies headache(s), paresthesias or weakness Psychiatric Psychiatric: Denies depression Endocrine Endocrinology: Denies polyuria Allergic/Immunologic Allergic/Immunologic ED: Denies urticaria EXAM Physical Exam Const Vital Signs: 08/07/21 14:48 08/07/21 14:52 08/07/21 15:04 Temperature 97.8 F Temperature Source Oral Pulse Rate 70 Respiratory Rate 18 Respiratory Effort Normal Respiratory Pattern Normal Blood Pressure 134/98 H Blood Pressure Mean 110 Pulse Ox 100 Oxygen Delivery Method Room Air Room Air 08/07/21 16:55 Temperature Temperature Source Pulse Rate 73 Respiratory Rate 19 H Respiratory Effort Respiratory Pattern Blood Pressure 151/82 H Blood Pressure Mean 105 Pulse Ox 96 Oxygen Delivery Method Room Air Positive well nourished and well developed General Appearance ED: well developed HEENT Negative for trauma or tenderness Eyes PERRL and EOMs intact bilaterally Neck supple Resp normal respiratory effort and clear to auscultation bilaterally Cardio regular rate and regular rhythm GI normal to inspection, nondistended, normoactive bowel sounds and non-tender Palpation: soft Extremity normal to inspection General Extremety ED: Negative for edema, tenderness or other findings General Extremity: Negative for edema or other findings Neuro oriented x3 Sensorium / Orientation: alert Psych mental status grossly normal Skin no rashes or lesions noted and no wounds MDM MDM MDM Narrative Medical decision making narrative: EKG shows sinus rhythm at a rate of 57. No sign of acute ischemia or infarction pattern. This was interpreted by me extremity directed the patient care in the emergency department. Chest x-ray showed nothing acute. This was interpreted by me and the radiologist. Labs below. White count 13.5. Initial potassium 2.9. This was replaced. Magnesium was 1.9. Initial troponin 65 and repeat 2-hour troponin was 105. Patient was treated with medication for pain as well as aspirin. On reevaluation, vitals are stable, pain has improved. Last stress test was years ago. She does have a stent that was placed about 10 years ago. Because of this, her chest pain, and the elevating troponin, I will call the hospitalist to admit. Hospitalist also requested a urinalysis given her white count of 13.5. Patient is not septic or in shock. Impression #1 chest pain Impression #2 hypokalemia Impression #3 leukocytosis Lab Data Attestation: I reviewed the patient's lab results. Labs: Laboratory Results - last 24 hr 08/07/21 08/07/21 08/07/21 14:55 14:55 16:50 WBC 13.5 H RBC 5.09 Hgb 15.3 H Hct 44.8 MCV 88.0 MCH 30.1 MCHC 34.2 RDW Std Deviation 41.8 RDW Coeff of Matt 12.9 Plt Count 316 MPV 10.6 Immature Gran % (Auto) 0.500 Neut % (Auto) 50.8 Lymph % (Auto) 43.8 H [place] % (Auto) 3.3 Eos % (Auto) 0.9 Baso % (Auto) 0.7 Absolute Neuts (auto) 6.8 Absolute Lymphs (auto) 5.91 H Nucleated RBC % 0 Differential Comment SCANNED Sodium 142 Potassium 2.9 L Chloride 109 H Carbon Dioxide 24.0 Anion Gap 9 BUN 6 L Creatinine 0.80 Estim Creat Clear Calc 71.03 Est GFR (MDRD) Af Amer 97 Est GFR (MDRD) Non-Af 80 BUN/Creatinine Ratio 7.5 L Glucose 105 Calcium 9.9 Magnesium 1.9 Troponin I High Sens 65 H 105 H Radiography Diagnostic Testing: Clinical Impression(s) from Imaging Studies Chest X-Ray 08/07/21 15:25 IMPRESSION: Normal x-ray examination of the chest. Electronically Signed: Reza Antonio MD at 16:04 EST Tel , Service support , Discharge Plan Triage Chief Complaint: General Illness ED Provider: Jamie Young Dx/Rx/DC Orders Prescriptions: No Action nicotine 7 MG patch 24 hour 1 ea TD DAILY Qty: 14 RF: 0 ondansetron 4 MG tablet 8 mg PO Q8H PRN PRN (Reason: Nausea) Qty: 20 RF: 0 Primary Care Provider: Care Physician,No Primary
--- NOTE | 2021-08-07 18:08 | HP.PCM.HOS_ITS ---
Documented by User: Kan FABIAN 08/07/21 18:27 HPI - General HPI Narrative BRANT LANTIGUA is a 51-year-old female who presents to the ED at [facility] on 08/07/2021 with a chief complaint of chest pain and shortness of breath. Patient reports that while she was at [employer] this morning she began to develop a crushing midsternal chest pain that she rated at about a 9 out of 10. Patient also began to develop intermittent shortness of breath and vomiting. Denies palpitations, hemoptysis, sputum production, fever, chills, nausea or diarrhea. Patient reports that her chest pain and shortness of breath both made worse with exertion and improved with rest. Patient's pain was responsive to morphine given in the ED. Of note, patient lives with her granddaughter who recently came out of COVID-19 quarantine. Rapid Covid obtained in the ED was negative. Past medical history is significant for STEMI with stent placement about 10 years ago. Patient reports that she follows with a supervisor lime in [place], [place]. Vital signs in the ED are temperature of 97.8 ?F, HR of 70, BP of 134/98, RR of 18 and patient is currently satting 100% on room air. CBC demonstrates WBCs at 13.5, hemoglobin of 15.3 and platelets at 316. BMP demonstrates a potassium of 2.9, but is otherwise unremarkable. Initial high-sensitivity opponent's elevated at 65 and 105 respectively. Chest x-ray did not demonstrate any acute cardiopulmonary pathology. EKG obtained in the ED was normal sinus rhythm at a rate of 57. Demonstrated no evidence of ischemia or infarction. [facility] Medical History (Updated 08/07/21 @ 18:19 by Kan FABIAN) GERD (gastroesophageal reflux disease) Heart disease Hypertension STEMI (ST elevation myocardial infarction) Allergy/AdvReac Type Severity Reaction Status Date / Time albuterol Allergy Mild unknown Verified 08/07/21 14:52 penicillin V Allergy Mild unkonwn Verified 08/07/21 14:52 amoxicillin Allergy Hives Verified 08/07/21 14:52 Family History Other Arthritis CVA (cerebral vascular accident) Cancer Hypertension Myocardial infarction other (Patient reports that her mother & father had everything, but was not able to provide specifics. ) Surgical History History of hysterectomy History of intravascular stent placement Social History (Updated 08/07/21 @ 18:17 by Kan FABIAN) Smoking Status: Current every day smoker tobacco type: cigarettes Smoking packs per day: 0.25 Smoking cigarettes per day: 5.0 Years smoked: 30 Smoking pack- years: 7.50 Tobacco: How many years used: 30 substance use type: marijuana ROS Constitutional Constitutional: Denies anorexia, change in weight, chills, fatigue, fever(s), malaise, night sweats, weakness or other Eyes Eyes: Denies blurry vision, change in eye color, change in vision, discharge from eye(s), double vision, erythema, eye pain, loss of vision or other ENT HEENT: Denies abnormal hearing, dysphagia, ear pain, epistaxis, headache(s), hearing loss, nasal congestion, nasal discharge, post nasal drip, sinus pressure, sore throat or other Cardiovascular Cardiovascular: Reports chest pain and dyspnea on exertion; Denies claudication, edema, lightheadedness, orthopnea, palpitations, paroxysmal nocturnal dyspnea, rapid heart rate, syncope or other Respiratory/Chest Respiratory/Chest: Reports dyspnea, shortness of breath at rest and shortness of breath with exertion; Denies cough, excessive phlegm production, hemoptysis, productive cough, wheezing or other Gastrointestinal Gastrointestinal: Reports vomiting; Denies abdominal pain, coffee ground emesis, constipation, diarrhea, dyspepsia, hematemesis, hematochezia, loose stools, melena, nausea or other Genitourinary Genitourinary: Denies burning urination, difficulty urinating, dysuria, hematuria, nocturia, urinary frequency, urinary hesitancy, urinary incontinence, urinary urgency or other Musculoskeletal Musculoskeletal: Denies arthralgias, back pain, joint pain, joint stiffness, joint swelling, myalgias, neck pain or other Neurologic Neurologic: Denies abnormal gait, abnormal speech, confusion, disequilibrium, dizziness, focal weakness, headache(s), numbness, paresthesias, seizure-like activity, seizures, syncope, tingling, tremor(s) or other Psychiatric Psychiatric: Denies anxiety, depression, homicidal ideation, suicidal ideation or other Endocrine Endocrinology: Denies change in body appearance, cold intolerance, excessive sweating, heat intolerance, polydipsia, polyuria or other Hematologic/Lymphatic Hematologic/Lymphatic: Denies anemia, easy bleeding, easy bruising, lymphadenopathy or other Allergic/Immunologic Allergic/Immunologic: Denies rhinitis, hives, eczemia, asthma or other Vital Signs Vital Signs Vital Signs: 08/07/21 14:48 08/07/21 14:52 08/07/21 15:04 Temperature 97.8 F Temperature Source Oral Pulse Rate 70 Respiratory Rate 18 Respiratory Effort Normal Respiratory Pattern Normal Blood Pressure 134/98 H Blood Pressure Mean 110 Pulse Ox 100 Oxygen Delivery Method Room Air Room Air 08/07/21 16:55 08/07/21 18:05 Temperature Temperature Source Pulse Rate 73 74 Respiratory Rate 19 H 16 Respiratory Effort Respiratory Pattern Blood Pressure 151/82 H 146/87 H Blood Pressure Mean 105 106 Pulse Ox 96 97 Oxygen Delivery Method Room Air Room Air Weight Weight: 158 lb 4.67 oz Body Mass Index (BMI) 27.1 Physical Exam Const alert and oriented x3 General Appearance: cooperative HEENT normocephalic, head/scalp atraumatic and hearing grossly normal bilaterally Eyes PERRL, EOMs intact bilaterally and conjunctivae normal Neck no lymphadenopathy, supple and no JVD Resp normal respiratory effort, no retractions, no use of accessory muscles and clear to auscultation bilaterally Cardio regular rate, regular rhythm, no murmurs and no JVD GI normal to inspection, nondistended, normoactive bowel sounds, soft to palpation and non-tender GI Narrative: Actively vomiting on examination. Extremity normal to inspection, full ROM and no clubbing, cyanosis or edema Skin no rashes or lesions noted, no wounds and skin turgor normal Neuro CN's II-XII intact bilaterally Psych affect normal Results Lab / Micro Data Result Diagrams: 08/07/21 14:55 08/07/21 14:55 Labs: Laboratory Results - last 24 hr 08/07/21 14:55: WBC 13.5 H, RBC 5.09, Hgb 15.3 H, Hct 44.8, MCV 88.0, MCH 30.1, MCHC 34.2, RDW Std Deviation 41.8, RDW Coeff of Matt 12.9, Plt Count 316, MPV 10.6, Immature Gran % (Auto) 0.500, Neut % (Auto) 50.8, Lymph % (Auto) 43.8 H, [place] % (Auto) 3.3, Eos % (Auto) 0.9, Baso % (Auto) 0.7, Absolute Neuts (auto) 6.8, Absolute Lymphs (auto) 5.91 H, Nucleated RBC % 0, Differential Comment SCANNED 08/07/21 14:55: Sodium 142, Potassium 2.9 L, Chloride 109 H, Carbon Dioxide 24.0, Anion Gap 9, BUN 6 L, Creatinine 0.80, Estim Creat Clear Calc 71.03, Est GFR (MDRD) Af Amer 97, Est GFR (MDRD) Non-Af 80, BUN/Creatinine Ratio 7.5 L, Glucose 105, Calcium 9.9, Troponin I High Sens 65 H 08/07/21 16:50: Magnesium 1.9, Troponin I High Sens 105 H Micro: Microbiology 08/07/21 15:27 Nasal Secretion SARS-CoV-2 Antigen (Rapid) - Final Radiology Impression Chest X-Ray 08/07/21 15:25 IMPRESSION: Normal x-ray examination of the chest. Electronically Signed: Reza Antonio MD at 16:04 EST Tel , Service support , Assessment & Plan Assessment/Plan (1) Chest pain: (2) Cardiac enzymes elevated: (3) UTI (urinary tract infection): PLAN: Patient presents to the ED at [facility] on with a chief complaint of chest pain. Patient will be admitted for evaluation and management of chest pain. 1) chest pain with elevated cardiac enzymes Patient presents with a 1 day history of crushing midsternal chest pain which she rated at a 9 out of 10 prior to ED visit. Patient's past medical history is significant for STEMI with stent placement 10 years ago. Patient reports that she follows with a supervisor lime in [place], [place]. EKG was unremarkable and did not demonstrate any evidence of acute ischemia or infarction. Chest x-ray was unremarkable. High-sensitivity troponins elevated at 65 and 105 respectively. Heart score is 5: History, age, risk factors and troponins. Plan; admit to PCU for cardiac monitoring, cardiology consult ordered, continue to trend high-sen sitivity troponins, cardiac diet ordered, CBC and BMP in a.m., lipid profile ordered, continue home aspirin and statin. 2) suspected UTI Patient has a significant history of prior UTIs. Patient does not complain of any urinary symptoms however is with a leukocytosis and is vomiting on my exam. Patient is afebrile and other vital signs are stable. UA ordered/pending. Will initiate management based off of UA. 3) COVID-19 exposure Patient lives with her granddaughter who recently completed a COVID-19 quarantine. Patient is without any respiratory complaints however is actively vomiting on my examination. Rapid Covid is negative. Chest x-ray without any acute findings suggestive of COVID-19 pneumonia. Continue to monitor. CODE STATUS: Full code DVT prophylaxis - Heparin Vaccination status: Patient does not wish to receive COVID-19 vaccine while admitted, despite the known benefits. Patient was not interested in receiving information about the COVID-19 vaccine. Patient seen by Kan Gillette PA-C, under the supervision of Dr. Mason. Documented by User: Dr. Inocente Mason MD 08/07/21 18:49 HPI - General General Date of Admission: 08/07/21 [facility] Medical History (Updated 08/07/21 @ 18:19 by Kan FABIAN) GERD (gastroesophageal reflux disease) Heart disease Hypertension STEMI (ST elevation myocardial infarction) Allergy/AdvReac Type Severity Reaction Status Date / Time albuterol Allergy Mild unknown Verified 08/07/21 14:52 penicillin V Allergy Mild unkonwn Verified 08/07/21 14:52 amoxicillin Allergy Hives Verified 08/07/21 14:52 Family History Other Arthritis CVA (cerebral vascular accident) Cancer Hypertension Myocardial infarction Surgical History History of hysterectomy History of intravascular stent placement Social History (Updated 08/07/21 @ 18:17 by Kan FABIAN) Smoking Status: Current every day smoker tobacco type: cigarettes Smoking packs per day: 0.25 Smoking cigarettes per day: 5.0 Years smoked: 30 Smoking pack- years: 7.50 Tobacco: How many years used: 30 substance use type: marijuana Results Lab / Micro Data Result Diagrams: 08/07/21 14:55 08/07/21 14:55 Charges/Coding Addendum Addendum: Dr. Mason: I personally reviewed the chart and examined the patient, and agree with the above findings. 49-year-old female presenting with chest pain that is substernal and radiates to her shoulders. She has had a history of previous cardiac stents and when asked why she is not on aspirin is because she forgot to take it and is never refilled it. Unfortunate she is also a continued smoker. She has been having some nausea and vomiting today but denies any abdominal pain she denies any shortness of breath or lightheadedness and does not have a signif icant cough. Her rapid Covid antigen was negative and her chest x-ray was unremarkable. We will trend her troponins and start her on a heparin drip, and will consult cardiology for possible heart cath since her initial troponin was 65 and climbed to 105. She also does have a white blood cell count of 13.5 and though she denies any dysuria, she does have a significant previous history of urinary tract infections therefore will obtain a UA and if positive will obtain a urine culture and start her on antibiotics. Visit Charges Inpatient E&M: 72319 Init Hosp L3
[2021-08-07] MEDS: Potassium Chloride Oral Tablet 20 MEQ 60 MEQ PO (18:41)
[2021-08-07 19:08] LABS: International Normalized Ratio 1.1; Prothrombin Time (Protime)PT. 13.7 SECONDS (11.7-14.9)
[2021-08-07 19:09] LABS: Partial Thromboplast Time 24.2 Seconds (24.1-36.2)
--- NOTE | 2021-08-07 19:24 | PCS.PANDOC ---
PANDEMIC DOCUMENTATION INITIATED: Date: 04/25/2021 Time: 190
[2021-08-07] MEDS: Heparin Injection (Vial) 5,000 UNIT/ML VIAL 4000 UNIT IV (19:55)
[2021-08-07] MEDS: HEPARIN/D5w 25,000 UNITS 25,000 UNITS/250 ML IV.SOLN. 8 UNITS IV (19:56)
[2021-08-07] MEDS: 0.9% Saline Lock 10 ML Syringe IV ×2 (19:57→23:19)
[2021-08-07 21:37] LABS: Troponin-I HS 2287 pg/mL (3.0-54.0)
[2021-08-08] VITALS (26 sets, daily range): BP systolic 104–156; BP diastolic 68–106; PULSE 67–96; RESP 17–25; TEMP 36.6–37.7; O2SAT 96–100
[2021-08-08] MEDS: 0.9% Saline Lock 10 ML Syringe IV ×5 (02:12→07:27)
[2021-08-08 02:21] LABS: Absolute Lymphocyte Count 2.23 X10^3/uL (0.83-4.51); Absolute Neutrophil Count 11.3 X10^3/uL (2.0-7.7); Basophil# 0.03 X10^3/uL; Basophil% 0.2 % (0-1); Hematocrit 42.9 % (37-47); Lymphocyte # 2.23 X10^3/ul (0.83-4.51); Mean Corpuscular Hgb 30.4 pg (27.0-32.0); Monocyte# 0.35 X10^3/uL; Monocyte% 2.5 % (0-10); NRBC Flagged by Analyzer 0 % (0-5); Neutrophil # 11.27 X10^3/uL (2.7-7.7); Neutrophil % 80.9 % (47-70); Platelet Count 289 K/mm3 (150-450); RBC Distribution Width CV 13.2 % (11.6-14.6); RBC Distribution Width SD 41.6 fl (35.1-43.9); Red Blood Count 4.93 M/mm3 (4.2-5.4); White Blood Count 13.9 K/mm3 (4.4-11.0)
[2021-08-08 02:23] LABS: Partial Thromboplast Time 28.2 Seconds (24.1-36.2)
[2021-08-08] MEDS: proCHLORPERazine 10 MG/2 ML Vial 5 MG IM (02:35)
[2021-08-08 02:49] LABS: Anion Gap 7 (5-15); BUN 9 mg/dL (7-18); BUN/Creat Ratio 10.1 RATIO (10-20); Calcium,Total 9.8 mg/dL (8.5-10.1); Chloride 109 mmol/L (98-107); Cholesterol 153 mg/dL (200); Creatinine, Serum 0.89 mg/dL (0.55-1.02); EST Glomerular Filtration Rate 71 mL/min (>60); Est Glom Filt Rate - Afr Amer 86 mL/min (>60); Estimated Creatinine Clearance 63.85 ml/min; Glucose 145 mg/dL (74-106); High Density Lipoprotein 46 mg/dL; Potassium 3.9 mmol/L (3.5-5.1); Sodium Level 141 mmol/L (136-145); Triglycerides 86 mg/dL; Very Low Density Lipoprotein 17 mg/dL (5-40)
[2021-08-08] MEDS: Heparin Injection (Vial) 5,000 UNIT/ML VIAL IV (03:10)
--- NOTE | 2021-08-08 05:00 | EKG12_ITS ---
Test Reason : AM EKG Blood Pressure : / mmHG Vent. Rate : 084 BPM Atrial Rate : 084 BPM P-R Int : 154 ms QRS Dur : 082 ms QT Int : 388 ms P-R-T Axes : 061 034 079 degrees QTc Int : 458 ms Normal sinus rhythm Septal infarct , age undetermined T wave abnormality, consider anterolateral ischemia Abnormal ECG When compared with ECG of 07-AUG-2021 14:54, MANUAL COMPARISON REQUIRED, DATA IS UNCONFIRMED Confirmed by IDALMIS LACY, ARIANNA ([id number]), legal editor PRASAD ROSEN ([id number]) on 08/09/2021 9:23:34 AM Referred By: ANA LILIA Confirmed By:ARIANNA RAYGOZA MD
[2021-08-08] MEDS: Potassium Chloride Oral Tablet 10 MEQ PO (05:35)
[2021-08-08] MEDS: Aspirin 81 MG TAB.CHEW PO (05:37)
[2021-08-08] MEDS: Ondansetron 4 MG/2 ML Vial IV (07:27)
--- NOTE | 2021-08-08 07:50 | PCM.CONS.C ---
Assessment & Plan Assessment/Plan (1) Chest pain: PLAN: Patient with a known history of coronary artery disease presents with chest discomfort which is suggestive of angina with abnormal cardiac enzyme elevation. In addition patient is noted to have nonsustained ventricular tachyarrhythmia. The plan at this time would be to restart her aspirin, restart beta-missy, continue intravenous amiodarone for now and schedule for left heart catheterization. The risk benefits and alternatives have been explained to her she understands and agrees to proceed. Addendum: Cardiac catheterization demonstrated normal left main coronary artery. Left anterior descending artery previously stent totally occluded. First diagonal vessel with 90% stenosis. Left circumflex artery with mild disease. Right coronary artery with 50% mid segment stenosis. Left ventricular systolic dysfunction with estimated EF 40% with anterior apical hypokinesis. Based on the above angiographic findings would consider angioplasty and stenting to the left anterior descending artery. Thank you for allowing me to participate in the care of your patient. Please don't hesitate to call if any issues arise. HPI Consult Data Date of Consult: 08/08/21 HPI Narrative HPI Narrative: BRANT LANTIGUA, is a 51 F who presents to the emergency room with chest discomfort. She states that while she was at [employer] she started developing crushing midsternal chest discomfort and also developed intermittent shortness of breath and nausea. Rapid Covid obtained in the ED was negative. Past medical history is significant for STEMI with stent placement about 10 years ago. She has not followed up with a nurse emergency room here recently. She denies any dizziness or diaphoresis near syncope or syncope, and she says that she is compliant with her medications. She presented to the emergency room and was noted to be pain-free at that time. Laboratory tests were significant for a low potassium, but EKG did not demonstrate any significant abnormalities. On the telemetry floor however patient developed nonsustained ventricular tachyarrhythmia and was started on intravenous amiodarone. Cardiology was called for further evaluation and management. [facility] Medical History GERD (gastroesophageal reflux disease) Heart disease Hypertension STEMI (ST elevation myocardial infarction) Home Medications atorvastatin 80 mg PO DAILY 08/07/21 [History Last Taken Unknown] citalopram 20 mg PO DAILY 08/07/21 [History Last Taken Unknown] lisinopril 08/07/21 [History Last Taken Unknown] metoprolol tartrate 25 mg PO BID 08/07/21 [History Last Taken Unknown] omeprazole 20 mg PO BREAKFAST 08/07/21 [History Last Taken Unknown] Allergy/AdvReac Type Severity Reaction Status Date / Time albuterol Allergy Mild unknown Verified 08/07/21 14:52 penicillin V Allergy Mild unkonwn Verified 08/07/21 14:52 amoxicillin Allergy Hives Verified 08/07/21 14:52 Family History Other Arthritis CVA (cerebral vascular accident) Cancer Hypertension Myocardial infarction Family History other Surgical History History of hysterectomy History of intravascular stent placement Social History Smoking Status: Current every day smoker tobacco type: cigarettes Tobacco: How many years used: 30 substance use type: marijuana ROS Constitutional Constitutional: Denies fever(s) or weight loss Eyes Eyes: Reports systems reviewed and no addt'l complaints, except as documented ENT HEENT: Reports systems reviewed and no addt'l complaints, except as documented Cardiovascular Cardiovascular: Reports chest pain at rest, chest pain with activity and dyspnea at rest; Denies dyspnea on exertion, edema, palpitations or paroxysmal nocturnal dyspnea Respiratory/Chest Respiratory/Chest: Denies dyspnea on exertion, productive cough, shortness of breath at rest or shortness of breath with exertion Gastrointestinal Gastrointestinal: Denies change in bowel habits, nausea, vomiting or weight changes Genitourinary Genitourinary: Denies difficulty urinating Musculoskeletal Musculoskeletal: Denies joint stiffness or muscle weakness Integumentary Integumentary: Denies lesions Neurologic Neurologic: Denies dizziness or syncope Psychiatric Psychiatric: Denies anxiety Endocrine Endocrinology: Denies excessive sweating or fatigue Hematologic/Lymphatic Hematologic/Lymphatic: Denies anemia Allergic/Immunologic Allergic/Immunologic: Denies seasonal rhinorrhea Physical Exam Const alert, oriented x3 and no apparent distress General Appearance: cooperative HEENT hearing grossly normal bilaterally Head and Scalp: atraumatic Eyes EOMs intact bilaterally Neck General: normal visual inspection Chest inspection of chest normal and palpation of chest normal Resp normal respiratory effort Auscultation: clear to auscultation bilaterally Cardio regular rate, regular rhythm, S1 normal heart sound and S2 normal heart sound Jugular Venous Distention: JVD GI normal to inspection, nondistended, normoactive bowel sounds Extremity normal capillary refill and no pedal edema Peripheral Pulses: Yes pulses 2+ throughout and femoral pulses present Skin no rashes or lesions noted Neuro oriented x3 and CN's II-XII intact bilaterally Psych Appearance: grossly normal and appropriate Risk Stratification Risk Stratification Applicable: Yes Age >/= 65: No >/= 3 CAD Risk Factors (HTN, HLD, DM, family hx of CAD, or current smoker): Yes Aspirin Use in the Past 7 Days: Yes Severe Angina (>/= episodes in 24 hours): Yes EKG ST Changes >/= 0.5mm: No Positive Cardiac Marker: Yes ANT Risk Stratification Score: 4 ANT % Risk: 20% Risk Objective Data Vital Signs: Vital Signs Temp Pulse Resp BP Pulse Ox 99.3 F H 86 21 H 131/75 H 97 08/08/21 05:41 08/08/21 07:15 08/08/21 07:15 08/08/21 07:15 08/08/21 06:54 Oxygen Delivery Method Room Air Weight: 150 lb 12.739 oz Body Mass Index (BMI) 25.9 Intake & Output: Intake and Output for Last 24 Hours 08/06/21 08/07/21 08/08/21 23:59 23:59 23:59 Intake Total 130 / 130 215.43 / 215.43 Balance 130 / 130 215.43 / 215.43 Lab / Micro Data Result Diagrams: 08/08/21 02:06 08/08/21 02:06 Labs: Laboratory Results - last 24 hr 08/07/21 14:55: WBC 13.5 H, RBC 5.09, Hgb 15.3 H, Hct 44.8, MCV 88.0, MCH 30.1, MCHC 34.2, RDW Std Deviation 41.8, RDW Coeff of Matt 12.9, Plt Count 316, MPV 10.6, Immature Gran % (Auto) 0.500, Neut % (Auto) 50.8, Lymph % (Auto) 43.8 H, [place] % (Auto) 3.3, Eos % (Auto) 0.9, Baso % (Auto) 0.7, Absolute Neuts (auto) 6.8, Absolute Lymphs (auto) 5.91 H, Nucleated RBC % 0, Differential Comment SCANNED 08/07/21 14:55: Sodium 142, Potassium 2.9 L, Chloride 109 H, Carbon Dioxide 24.0, Anion Gap 9, BUN 6 L, Creatinine 0.80, Estim Creat Clear Calc 71.03, Est GFR (MDRD) Af Amer 97, Est GFR (MDRD) Non-Af 80, BUN/Creatinine Ratio 7.5 L, Glucose 105, Calcium 9.9, Troponin I High Sens 65 H 08/07/21 16:50: Magnesium 1.9, Troponin I High Sens 105 H 08/07/21 18:43: PT 13.7, INR 1.1, APTT 24.2 08/07/21 20:50: Troponin I High Sens 2287 H* 08/08/21 02:06: WBC 13.9 H, RBC 4.93, Hgb 15.0, Hct 42.9, MCV 87.0, MCH 30.4, MCHC 35.0, RDW Std Deviation 41.6, RDW Coeff of Matt 13.2, Plt Count 289, MPV 10.0, Immature Gran % (Auto) 0.400, Neut % (Auto) 80.9 H, Lymph % (Auto) 16.0 L, [place] % (Auto) 2.5, Eos % (Auto) 0.0, Baso % (Auto) 0.2, Absolute Neuts (auto) 11.3 H, Absolute Lymphs (auto) 2.23, Nucleated RBC % 0 08/08/21 02:06: Sodium 141, Potassium 3.9, Chloride 109 H, Carbon Dioxide 25.0, Anion Gap 7, BUN 9, Creatinine 0.89, Estim Creat Clear Calc 63.85, Est GFR (MDRD) Af Amer 86, Est GFR (MDRD) Non-Af 71, BUN/Creatinine Ratio 10.1, Glucose 145 H, Calcium 9.8, Triglycerides 86, Cholesterol 153, LDL Cholesterol 90, VLDL Cholesterol 17, HDL Cholesterol 46 08/08/21 02:06: APTT 28.2 Micro: Microbiology 08/07/21 15:27 Nasal Secretion SARS-CoV-2 Antigen (Rapid) - Final Cardiology Labs/Tests 08/07/21 14:55: WBC 13.5 H, RBC 5.09, Hgb 15.3 H, Hct 44.8, MCV 88.0, MCH 30.1, MCHC 34.2, Plt Count 316, MPV 10.6, Immature Gran % (Auto) 0.500, Neut % (Auto) 50.8, Lymph % (Auto) 43.8 H, [place] % (Auto) 3.3, Eos % (Auto) 0.9, Baso % (Auto) 0.7, Absolute Neuts (auto) 6.8, Nucleated RBC % 0 08/07/21 14:55: Sodium 142, Potassium 2.9 L, Chloride 109 H, Carbon Dioxide 24.0, Anion Gap 9, BUN 6 L, Creatinine 0.80, Est GFR (MDRD) Af Amer 97, Est GFR (MDRD) Non-Af 80, BUN/Creatinine Ratio 7.5 L, Glucose 105, Calcium 9.9 08/07/21 16:50: Magnesium 1.9 08/07/21 18:43: PT 13.7, INR 1.1, APTT 24.2 08/08/21 02:06: WBC 13.9 H, RBC 4.93, Hgb 15.0, Hct 42.9, MCV 87.0, MCH 30.4, MCHC 35.0, Plt Count 289, MPV 10.0, Immature Gran % (Auto) 0.400, Neut % (Auto) 80.9 H, Lymph % (Auto) 16.0 L, [place] % (Auto) 2.5, Eos % (Auto) 0.0, Baso % (Auto) 0.2, Absolute Neuts (auto) 11.3 H, Nucleated RBC % 0 08/08/21 02:06: Sodium 141, Potassium 3.9, Chloride 109 H, Carbon Dioxide 25.0, Anion Gap 7, BUN 9, Creatinine 0.89, Est GFR (MDRD) Af Amer 86, Est GFR (MDRD) Non-Af 71, BUN/Creatinine Ratio 10.1, Glucose 145 H, Calcium 9.8, Triglycerides 86, Cholesterol 153, LDL Cholesterol 90, VLDL Cholesterol 17, HDL Cholesterol 46 08/08/21 02:06: APTT 28.2 Rhythm: EKG: ECHO: Stress Test: Cardiac Cath: PCI: CT Surgery: Holter monitor: EPS: PPM: CXR: Chest CT Scan: Radiography Diagnostic Testing: Radiology Impression Chest X-Ray 08/07/21 15:25 IMPRESSION: Normal x-ray examination of the chest. Electronically Signed: Reza Antonio MD at 16:04 EST Tel , Service support ,
[2021-08-08] MEDS: 0.9% Normal Saline 1,000 ML 15 ML IV (09:08)
[2021-08-08 10:08] LABS: Partial Thromboplast Time 27.6 Seconds (24.1-36.2)
--- NOTE | 2021-08-08 10:28 | CASEMGMT ---
According to the [facility] website, the following are in-network tertiary facilities: [facility], [facility], [facility], [facility], [facility], [facility], [facility], [facility], [facility], and . Bro BERRY CM
[2021-08-08 11:06] LABS: Probe Check PASS; Specimen Processing Control PASS
--- NOTE | 2021-08-08 12:13 | NURSING ---
1115-report given to cleaner laboratory equipment RN
--- NOTE | 2021-08-08 12:16 | CL.D_ITS ---
Patient Name: BRANT LANTIGUA Study Date: 08/08/2021 Performing: Randall Forrest MD Ht: 64.17 inches 163 cm : 1970 Wt: 149.91 lbs 68 kg Age: 51 Gender: female BSA: 1.73 PROCEDURE(S) PERFORMED [id number] CLINICAL PROFILE AND INDICATIONS Indications: ACS <= 24 hrs Heart Failure: None Stress/Imaging Stress/Image Study Performed: No CONCLUSIONS Totally occluded mid left anterior descending artery within the stent with high-grade stenosis noted in the first diagonal vessel of 90% Moderate right coronary artery stenosis RECOMMENDATIONS Referred for immediate PCI DESCRIPTION OF PROCEDURE The patient arrived to the procedure lab. The risks and benefits of the procedure as well as a full d escription of our services here and current unavailability of surgical backup were fully explained to the patient and/or their significant other prior to the catheterization. The Timeout was completed, verifying the correct patient and procedure. The patient's procedural site was prepped and draped in the usual fashion. Local anesthetic was given subcutaneously to right radial region with Lidocaine 2% . Using a modified Seldinger technique, arterial access was obtained via the right radial artery, a 6 Fr sheath was inserted. Left Coronary Artery selective angiography was performed in multiple views u sing a 5 Fr. 4.0 [place] catheter. Right Coronary Artery selective angiography was then performed in mu ltiple views using a 5 Fr. 4.0 [place] catheter. Left Ventriculography was performed in VÁSQUEZ projection using a 5 Fr. Pigtail catheter. LV to AO pullback pressures were then recorded. CORONARY ANGIOGRAPHY DOMINANCE: Right Dominant LEFT HEART ASSESSMENT Left Ventricular Ejection Fraction: by LV Gram 40 % Abnormal LV wall motion. Anterior Hypokinesis - Moderate. Apical Hypokinesis - Moderate Depressed Left Ventricular systolic function LEFT MAIN: Angiographically normal LEFT ANTERIOR DESCENDING ARTERY: PROX LAD: Previously placed stent is occluded DIAGONAL 1: Proximal - 90% long % Stenosis CIRCUMFLEX ARTERY: No significant disease noted RIGHT CORONARY ARTERY: MID RCA: Moderate luminal irregularities up to 50% COMPLICATIONS PROCEDURE MEDICATIONS Fentanyl 50 mcg IV Versed 1 mg IV Oxygen: 2 L/min via nasal cannula Amiodarone 360mg / 200ml D5W @ 1 mg/min IV started on floor @ 08/08/2021 11:34:43 Heparin given IA 08/08/2021 11:49:44 Verapamil 2.5mg, Ntg 100mcgs, 3000 units of Heparin given IA 08/08/2021 11:49:44 SUMMARY OF HEMODYNAMIC DATA Time AIR REST ECG 11:32:10 Art 168/76 (106) 11:46:21 AO 136/91 (111) SA 11:51:40 LV 133/13, 19 11:58:08 LV 128/14, 18 11:58:15 LV 114/18, 21 11:58:57 LVp 138/17, 21 11:59:02 AOp 133/83 (106) 11:59:07 Signed By Randall Forrest MD On 08/08/2021 12:15:17 PM Randall Forrest MD
--- NOTE | 2021-08-08 13:15 | CASEMGMT ---
RN CM Face to Face with patient for initial transition planning/care coordination assessment. RN CM introduced self and role at [facility]. Patient lying in bed, alert and oriented. Patient willing to participate in assessment and is able to answer all questions appropriately. Care providers, pharmacy, and demographics verified. Patient wishes to discharge home, denies need for home health at this time. Patient states she has no further needs or concerns at this time. CM to follow for discharge planning needs that may arise. PCP: No PCP, patient provided with list of PCPs in the area Specialists: none Preferred Pharmacy: [facility] Insurance: [employer] Prescription Benefit: yes Living Will/HPOA: none LNOK: mother, daughter, son Living Arrangements: Patient lives with daughter, son, and granddaughter in a 2 story home with bed and bath on first floor. Patient states she is independent at home. Transportation: Self/mother DME/HHC: Patient denies DME or previous HHC. Disposition Plan: Patient to discharge home with family support and follow-up plans in place. Vandana SINHA, RN, CM
--- NOTE | 2021-08-08 14:15 | EKG12_ITS ---
Test Reason : AM EKG Blood Pressure : / mmHG Vent. Rate : 059 BPM Atrial Rate : 059 BPM P-R Int : 148 ms QRS Dur : 080 ms QT Int : 510 ms P-R-T Axes : 057 058 121 degrees QTc Int : 504 ms Sinus bradycardia Septal infarct , age undetermined Marked T wave abnormality, consider anterolateral ischemia Prolonged QT Abnormal ECG Confirmed by IVANA LACY, PASQUALE ([id number]), make up editor PRASAD ROSEN ([id number]) on 08/10/2021 8:41:00 AM Referred By: ANA LILIA Confirmed By:PASQUALE HETAH MD
[2021-08-08] MEDS: 0.9% Normal Saline 1,000 ML 60 ML IV (14:18)
--- NOTE | 2021-08-08 14:26 | PCM.PN.HOSP ---
Documented by User: Kan FABIAN 08/08/21 14:44 Subjective Subjective Patient is a 51-year-old female lying in bed recovering from a cardiac catheterization, alert and oriented x3. Patient reports resolution of her chest pain and nausea from admission. Denies development of any new symptoms overnight. Does not appear in acute distress. Objective Data Objective Data Vital Signs: Vital Signs Temp Pulse Resp BP Pulse Ox 98.3 F 68 19 H 115/74 98 08/08/21 13:33 08/08/21 14:00 08/08/21 14:00 08/08/21 14:00 08/08/21 14:00 Oxygen Delivery Method Room Air Weight: 150 lb 12.739 oz Body Mass Index (BMI) 25.9 Intake & Output: Intake and Output for Last 24 Hours 08/06/21 08/07/21 08/08/21 23:59 23:59 23:59 Intake Total 130 / 130 507.77 / 507.77 Balance 130 / 130 507.77 / 507.77 Lab / Micro Data Result Diagrams: 08/08/21 02:06 08/08/21 02:06 Labs: Laboratory Results - last 24 hr 08/07/21 14:55: WBC 13.5 H, RBC 5.09, Hgb 15.3 H, Hct 44.8, MCV 88.0, MCH 30.1, MCHC 34.2, RDW Std Deviation 41.8, RDW Coeff of Matt 12.9, Plt Count 316, MPV 10.6, Immature Gran % (Auto) 0.500, Neut % (Auto) 50.8, Lymph % (Auto) 43.8 H, [place] % (Auto) 3.3, Eos % (Auto) 0.9, Baso % (Auto) 0.7, Absolute Neuts (auto) 6.8, Absolute Lymphs (auto) 5.91 H, Nucleated RBC % 0, Differential Comment SCANNED 08/07/21 14:55: Sodium 142, Potassium 2.9 L, Chloride 109 H, Carbon Dioxide 24.0, Anion Gap 9, BUN 6 L, Creatinine 0.80, Estim Creat Clear Calc 71.03, Est GFR (MDRD) Af Amer 97, Est GFR (MDRD) Non-Af 80, BUN/Creatinine Ratio 7.5 L, Glucose 105, Calcium 9.9, Troponin I High Sens 65 H 08/07/21 16:50: Magnesium 1.9, Troponin I High Sens 105 H 08/07/21 18:43: PT 13.7, INR 1.1, APTT 24.2 08/07/21 20:50: Troponin I High Sens 2287 H* 08/08/21 02:06: WBC 13.9 H, RBC 4.93, Hgb 15.0, Hct 42.9, MCV 87.0, MCH 30.4, MCHC 35.0, RDW Std Deviation 41.6, RDW Coeff of Matt 13.2, Plt Count 289, MPV 10.0, Immature Gran % (Auto) 0.400, Neut % (Auto) 80.9 H, Lymph % (Auto) 16.0 L, [place] % (Auto) 2.5, Eos % (Auto) 0.0, Baso % (Auto) 0.2, Absolute Neuts (auto) 11.3 H, Absolute Lymphs (auto) 2.23, Nucleated RBC % 0 08/08/21 02:06: Sodium 141, Potassium 3.9, Chloride 109 H, Carbon Dioxide 25.0, Anion Gap 7, BUN 9, Creatinine 0.89, Estim Creat Clear Calc 63.85, Est GFR (MDRD) Af Amer 86, Est GFR (MDRD) Non-Af 71, BUN/Creatinine Ratio 10.1, Glucose 145 H, Calcium 9.8, Triglycerides 86, Cholesterol 153, LDL Cholesterol 90, VLDL Cholesterol 17, HDL Cholesterol 46 08/08/21 02:06: APTT 28.2 08/08/21 09:00: COVID-19 (SEBASTIÁN) Negative 08/08/21 09:50: APTT 27.6 Micro: Microbiology 08/07/21 15:27 Nasal Secretion SARS-CoV-2 Antigen (Rapid) - Final Radiography Diagnostic Testing: Radiology Impression Chest X-Ray 08/07/21 15:25 IMPRESSION: Normal x-ray examination of the chest. Electronically Signed: Reza Antonio MD at 16:04 EST Tel , Service support , Physical Exam Const alert, oriented x3 and no apparent distress HEENT head/scalp atraumatic, moist oral mucous membranes and oropharynx normal Head and Scalp: normocephalic Eyes PERRL, EOMs intact bilaterally and conjunctivae normal Neck no lymphadenopathy, supple and no JVD Resp normal respiratory effort, no retractions, no use of accessory muscles and clear to auscultation bilaterally Cardio regular rate, regular rhythm, no murmurs and no JVD GI normal to inspection, nondistended, normoactive bowel sounds, soft to palpation and non-tender Extremity normal to inspection, full ROM and no clubbing, cyanosis or edema Skin no rashes or lesions noted, no wounds, skin turgor normal and no jaundice Neuro CN's II-XII intact bilaterally Psych affect normal Assessment & Plan Assessment/Plan (1) UTI (urinary tract infection): (2) Cardiac enzymes elevated: (3) Chest pain: (4) HLD (hyperlipidemia): (5) History of coronary artery disease: PLAN: Day 1 Discharge planning: Current plan is for patient to discharge home. 1) NSTEMI Cardiac catheterization obtained this morning and demonstrated total occlusion of stent in the LAD, first diagonal vessel with 90% stenosis, mild disease in the LCA, 50% mid segment stenosis in the RCA and left ventricular diastolic dysfunction with estimated EF of 40%. Given the above findings patient immediately underwent angioplasty and stenting to the LAD. We will continue aspirin and statin regimen, initiate ticagrelor, continue beta-missy. Patient remained admitted overnight for cardiac monitoring potential discharge on 08/09/2021. 2) COVID-19 exposure Patient lives with her granddaughter who recently completed a COVID-19 quarantine. Rapid Covid is negative. Covid PCR is negative. Chest x-ray without any acute findings suggestive of COVID-19 pneumonia. Continue to monitor. 3) GERD Continue PPI. 4) HTN Stable, hold home lisinopril due to QT prolonging concern with Zofran, continue metoprolol. DVT prophylaxis - Lovenox Patient seen by Kan Gillette PA-C, under the supervision of Dr. Johns. Documented by User: Dr. Bereket Johns, DO 08/08/21 21:09 Objective Data Lab / Micro Data Result Diagrams: 08/08/21 02:06 08/08/21 02:06 Charges/Coding Addendum Addendum: Patient was seen and examined independently of Kan Gillette, she underwent stent insertion on the LAD today. At this time, patient does not complain of any chest pain or shortness of breath. On examination she appeared in good health and spirits, she does not appear to be in any distress. Vital signs as documented. Skin warm and dry and without overt rashes. Neck without JVD, thyroid appears normal, trachea is midline, neck is supple. Lungs clear, normal air movement was noted. Heart exam notable for regular rhythm, normal sounds and absence of murmurs, rubs or gallops. Abdomen unremarkable and without evidence of organomegaly, masses, or abdominal aortic enlargement, bowel sounds are present in all 4 quadrants, no abdominal tenderness was noted. Extremities nonedematous, no cyanosis was noted, no clubbing was noted. Neuro: Cranial nerves II through XII are grossly intact, no focal motor deficits were noted, sensation to light touch and pinprick is intact, motor exam 5/5 throughout. Psych: Patient is alert and oriented x3, she does not appear anxious or depressed, she does not appear agitated. I have reviewed Kan Gillette's progress note including his medical assessment and plan of care and endorse it. Visit Charges Inpatient E&M: 48990 Subs Hosp L2
--- NOTE | 2021-08-08 15:06 | CL.I_ITS ---
Patient Name: BRANT LANTIGUA Study Date: 08/08/2021 Performing: Ernestina Massey MD Ht: 64 inches 163 cm : 1970 Wt: 150.1 lbs 68 kg Age: 51 Gender: female BSA: 1.73 PROCEDURE(S) PERFORMED [id number] W OR WO PTCA, SINGLE CORONARY ARTERY [id number] W OR WO PTCA, EACH ADD'L ARTERY, SAME MAJOR CLINICAL PROFILE AND CO-MORBIDITIES Indications: ACS <= 24 hrs Heart Failure: None Stress/Imaging Stress/Image Study Performed: No CONCLUSIONS Successful thrombectomy and PRABHU to mLAD. Successful PRABHU to proximal Diagonal 2. RECOMMENDATIONS DESCRIPTION OF PROCEDURE The patient arrived to the procedure lab. The risks and benefits of the procedure as well as a full d escription of our services here and current unavailability of surgical backup were fully explained to the patient and/or their significant other prior to the catheterization. The Timeout was completed, verifying the correct patient and procedure. The patient's procedural site was prepped and draped in the usual fashion. Local anesthetic was given subcutaneously to right radial region with Lidocaine 2% Using a modified Seldinger technique,arterial access was obtained via the right radial artery, a 6Fr sheath was inserted. Left Coronary Artery selective angiography was performed in multiple views usin g a 5 Fr. 4.0 [place] catheter. Right Coronary Artery selective angiography was then performed in multi ple views using a 5 Fr. 4.0 [place] catheter. Left Ventriculography was performed in VÁSQUEZ projection usi ng a 5 Fr. Pigtail catheter. LV to AO pullback pressures were then recorded.The images were reviewed and options discussed. A decision was then made to proceed with an Intervention, IVUS o r other adjunct procedure. XB 3 Guide catheter was inserted and engaged into the LCA. BMW Guide wire was advanced to the LAD . Priority One inserted Pass # 1 Priority One Removed Angiogram performed post priority one. Angiogra m performed post priority one. 2.25x12 Emerge Balloon catheter was inserted. Balloon catheter was adv anced across lesion in the LAD, mid. PTCA balloon inflated at 10 atms for 14 secs. Orsiro 2.[address] Eluting stent was inserted. Drug Eluting stent was advanced across the lesion in the LAD, mid. Tonio mendez wire was repositioned to the 1st Diagonal Emerge 2.25 x 12 Balloon catheter was inserted. Balloon catheter was advanced across lesion in the second diagonal, proximal PTCA balloon inflated at 6 atms for 21 secs. Orsiro 3.0 x 15 Drug Eluting stent was inserted. Drug Eluting stent was advanced across the lesion in the second diagonal, proximal NC Emerge 3.0 x 12 Balloon catheter was inserted. Balloon catheter was advanced across lesion in the second diagonal, proximal Angiogram performed post stent deployment. The arterial sheath was pulled and a TR Band was applied for hemostasis. 10c c of air INTERVENTION INFORMATION LESION SITE: LAD (Mid) Lesion Complexity: High/C, chronic total occlusion: No, lesion at bifurcation: No, thrombus present: Yes, lesion length: 12 mm, culprit lesion: Yes, Previously treated lesion: Yes, In-stent Thrombosis: Yes, Timeframe of previous treatment: Time unknown, Previously treated with a stent: Yes Stent Type: with stent type unknown Pre Stenosis: 100 % Pre intervention ANT flow: 0 PROCEDURE: Thrombectomy, Drug Eluting Stent with pre dilatation. Post Stenosis: 0 % Post intervention ANT flow: 3 Lesion Devices: Zaman .014 BMW [place] Straight 190cm Cardinal 6 Fr XB3.0 100cm Guide Catheter Tero Priority One Aspiration Catheter Gomez Sci EMERGE MR 2.25x12 BALLOON Biotronik Orsiro MR PRABHU 2.5x18 LESION SITE: 2nd Diagonal (Proximal) Lesion Complexity: High/C, chronic total occlusion: No, lesion at bifurcation: Yes, thrombus present: No, lesion length: 12 mm, culprit lesion: Yes, Previously treated lesion: No Pre Stenosis: 90 % Pre intervention ANT flow: 3 PROCEDURE: Drug Eluting Stent with pre and post dilatation Post Stenosis: 0 % Post intervention ANT flow: 3 Lesion Devices: Zmaan .014 BMW [place] Straight 190cm Cardinal 6 Fr XB3.0 100cm Guide Catheter Gomez Sci EMERGE MR 2.25x12 BALLOON Biotronik Orsiro MR PRABHU 3.0x15 Gomez Sci NC EMERGE MR 3.00x12 BALLOON COMPLICATIONS No Complications PROCEDURE MEDICATIONS Fentanyl 50 mcg IV Versed 1 mg IV Oxygen: 2 L/min via nasal cannula Amiodarone 360mg / 200ml D5W 1 mg/min IV started on floor 08/08/2021 11:34:43 Brilinta 180 mg PO 08/08/2021 12:50:24 Amiodarone 360mg / 200ml D5W @ 0 mg/min discontinued @ 08/08/2021 12:50:45 Heparin given IA 08/08/2021 11:49:44 Heparin 3000 unit(s) IV 08/08/2021 12:16:06 Nitro 150 mcg IC 08/08/2021 12:26:54 Verapamil 2.5mg, Ntg 100mcgs, 3000 units of Heparin given IA 08/08/2021 11:49:44 SUMMARY OF HEMODYNAMIC DATA Time AIR REST ECG 11:32:10 Art 168/76 (106) 11:46:21 AO 136/91 (111) SA 11:51:40 LV 133/13, 19 11:58:08 LV 128/14, 18 11:58:15 LV 114/18, 21 11:58:57 LVp 138/17, 21 11:59:02 AOp 133/83 (106) 11:59:07 Signed By Ernestina Massey MD On 08/08/2021 15:05:49 Ernestina Massey MD
--- NOTE | 2021-08-08 15:28 | CRPH1.INST_ITS ---
General Education CAD and cardiac anatomy and function:: Patient communicates acknowledgment Explanation of diagnoses and procedures:: Patient communicates acknowledgment Sign/Symptoms of OK:: Patient communicates acknowledgment Antiplatelet therapy: Patient communicates acknowledgment Proper use of NTG-SL: Patient communicates acknowledgment Emergency procedures and activation of EMS: Patient communicates acknowledgment Compliance of all prescribed medications: Patient communicates acknowledgment Smoking Patient Nicotine/Smoking Risk Factors Are:: Cigarettes, Illicit drug use - Marijuana use on record Recommendations Include:: Smoking cessation strategies/Smoking packet, Second- hand smoke recommendation, Participation in a smoking cessation program Nicotine/Smoking Response Code:: Patient communicates acknowledgment Dyslipidemia Patient Dyslipidemia Risk Factors Are:: Total Cholesterol - 153, Triglycerides - 86, HDL - 46, LDL - 90 Recommendations Include:: Lipid profile provided, Reviewed NCEP/ATP guidelines, Therapeutic Lifestyle Change dietary guidelines Dyslipidemia Response Code:: Patient communicates acknowledgment Overweight/Obesity Patient Overweight/Obesity Risk Factors Are:: Overweight = 26-29 Recommendations Include:: Weight loss of 5-10% Overweight/Obesity:: Patient communicates acknowledgment Hypertension Recommendations Include:: Maintain BP <130/85, DASH dietary guidelines, Decrease/maintain normal body weight, Moderation of ETOH Hypertension:: Patient communicates acknowledgment Heart Disease Patient Heart Disease Risk Factors Are:: Family history of heart disease < 65 years old Recommendations Include:: Educated family members of their risk Heart Disease Response Code:: Patient communicates acknowledgment
--- NOTE | 2021-08-08 15:28 | CRPHASE1 ---
Patient Communication PHII Cardiac Rehab Discussed with Patient:: Yes Guide to Cardiac Rehab Given to Patient:: Yes Cardiac Rehab Facility Choice List Given to Patient:: Yes Choice Program [facility] CR PHII:: Communication Given to CR, Refer to [facility] [employer] [facility]:: Fawn Massey Phase II Cardiac Rehab:: Yes Sessions:: 36 sessions - 3 days/wk, 12 weeks Cardiac Rehabilitation Info Cardiac Rehabilitation Program Information: Cardiac Rehabilitation is important for patients like you who are recovering from a heart problem. Cardiac rehabilitation programs are recognized as integral to the continued care of the patient with coronary heart disease. The cardiac rehabilitation program is designed to optimize a patient's physical, psychological, and social functioning. Health child care centre director work in cardiac rehabilitation programs and assist you with getting the treatments you need to get stronger and healthier - like exercise, healthy eating habits, and medications. Cardiac rehabilitation has been show to help people with heart problems live longer and have better life enjoyment than people who do not go to cardiac rehabilitation. Please contact the Cardiac Rehabilitation Program at [facility] at in two weeks if you have not heard from them.
[2021-08-08] MEDS: TICAGRELOR 90 MG TABLET PO (21:53)
[2021-08-08] MEDS: Metoprolol Tartrate 25 MG Tablet PO (22:06)
[2021-08-09 03:00] VITALS: PULSE 63
[2021-08-09 04:12] VITALS: BP 101/75; PULSE 74; RESP 17; TEMP 36.7; O2SAT 97
[2021-08-09 06:48] LABS: Hematocrit 37.1 % (37-47); Hemoglobin 12.6 g/dL (12.0-15.0); Mean Corpuscular Hgb 29.5 pg (27.0-32.0); Mean Corpuscular Volume 86.9 fL (81-99); Mean Platelet Vol. 10.3 fl (6.2-12.0); Platelet Count 226 K/mm3 (150-450); RBC Distribution Width CV 13.1 % (11.6-14.6); Red Blood Count 4.27 M/mm3 (4.2-5.4); White Blood Count 11.2 K/mm3 (4.4-11.0)
[2021-08-09 07:05] LABS: ALB/GLOB Ratio 0.8 RATIO (0.9-2.4); AST(SGOT) 112 U/L (15-37); Alanine Aminotransfer ALT/SGPT 27 U/L (13-56); Albumin, Serum 3.3 g/dL (3.2-5.0); Alkaline Phosphatase 80 U/L (45-117); Anion Gap 7 (5-15); BUN 11 mg/dL (7-18); Calcium,Total 8.5 mg/dL (8.5-10.1); Chloride 107 mmol/L (98-107); Creatinine, Serum 0.61 mg/dL (0.55-1.02); EST Glomerular Filtration Rate 109 mL/min (>60); Est Glom Filt Rate - Afr Amer 132 mL/min (>60); Estimated Creatinine Clearance 93.16 ml/min; Globulin 3.9 g/dL (2.2-4.2); Glucose 84 mg/dL (74-106); Potassium 3.4 mmol/L (3.5-5.1); Protein, Total 7.2 g/dL (6.4-8.2); Sodium Level 140 mmol/L (136-145)
--- NOTE | 2021-08-09 07:14 | PN.CARD_ITS ---
Subjective Subjective Patient seen and evaluated Objective Data Vital Signs: Vital Signs Temp Pulse Resp BP Pulse Ox 98.0 F 74 17 101/75 97 08/09/21 04:12 08/09/21 04:12 08/09/21 04:12 08/09/21 04:12 08/09/21 04:12 Oxygen Delivery Method Room Air Weight: 150 lb 12.739 oz Body Mass Index (BMI) 25.9 Intake & Output: Intake and Output for Last 24 Hours 08/07/21 08/08/21 08/09/21 23:59 23:59 23:59 Intake Total 130 / 130 1747.77 / 1747.77 Balance 130 / 130 1747.77 / 1747.77 Lab / Micro Data Result Diagrams: 08/09/21 06:22 08/09/21 06:22 Labs: Laboratory Results - last 24 hr 08/08/21 09:00: COVID-19 (SEBASTIÁN) Negative 08/08/21 09:50: APTT 27.6 08/09/21 06:22: WBC 11.2 H, RBC 4.27, Hgb 12.6, Hct 37.1, MCV 86.9, MCH 29.5, MCHC 34.0, RDW Std Deviation 41.0, RDW Coeff of Matt 13.1, Plt Count 226, MPV 10.3 08/09/21 06:22: Sodium 140, Potassium 3.4 L, Chloride 107, Carbon Dioxide 26.0, Anion Gap 7, BUN 11, Creatinine 0.61, Estim Creat Clear Calc 93.16, Est GFR (MDRD) Af Amer 132, Est GFR (MDRD) Non-Af 109, BUN/Creatinine Ratio 18.0, Glucose 84, Calcium 8.5, Total Bilirubin 1.20 H, AST 112 H, ALT 27, Alkaline Ph osphatase 80, Total Protein 7.2, Albumin 3.3, Globulin 3.9, Albumin/Globulin Ratio 0.8 L Cardiology Labs/Tests 08/08/21 09:50: APTT 27.6 08/09/21 06:22: WBC 11.2 H, RBC 4.27, Hgb 12.6, Hct 37.1, MCV 86.9, MCH 29.5, MCHC 34.0, Plt Count 226, MPV 10.3 08/09/21 06:22: Sodium 140, Potassium 3.4 L, Chloride 107, Carbon Dioxide 26.0, Anion Gap 7, BUN 11, Creatinine 0.61, Est GFR (MDRD) Af Amer 132, Est GFR (MDRD) Non-Af 109, BUN/Creatinine Ratio 18.0, Glucose 84, Calcium 8.5, Total Bilirubin 1.20 H Rhythm: EKG: ECHO: Stress Test: Cardiac Cath: PCI: CT Surgery: Holter monitor: EPS: PPM: CXR: Chest CT Scan: Physical Exam Const alert, oriented x3 and no apparent distress General Appearance: cooperative HEENT hearing grossly normal bilaterally Head and Scalp: atraumatic Eyes EOMs intact bilaterally Neck General: normal visual inspection Chest inspection of chest normal and palpation of chest normal Resp normal respiratory effort Auscultation: clear to auscultation bilaterally Cardio regular rate, regular rhythm, S1 normal heart sound and S2 normal heart sound Jugular Venous Distention: JVD GI normal to inspection, nondistended, normoactive bowel sounds Extremity normal capillary refill and no pedal edema Peripheral Pulses: Yes pulses 2+ throughout and femoral pulses present Skin no rashes or lesions noted Neuro oriented x3 and CN's II-XII intact bilaterally Psych Appearance: grossly normal and appropriate Assessment & Plan Assessment/Plan (1) Chest pain: PLAN: Patient with a known history of coronary artery disease presents with chest discomfort which is suggestive of angina with abnormal cardiac enzyme elevation. In addition patient is noted to have nonsustained ventricular tachyarrhythmia. The plan at this time would be to restart her aspirin, restart beta-missy. Addendum: Cardiac catheterization demonstrated normal left main coronary artery. Left anterior descending artery previously stent totally occluded. First diagonal vessel with 90% stenosis. Left circumflex artery with mild disease. Right coronary artery with 50% mid segment stenosis. Left ventricular systolic dysfunction with estimated EF 40% with anterior apical hypokinesis. Based on the above angiographic findings underwent angioplasty and stenting to the left anterior descending artery. patient can be discharged for outpatient follow up. Thank you for allowing me to participate in the care of your patient. Please don't hesitate to call if any issues arise.
[2021-08-09 07:40] VITALS: PULSE 69
[2021-08-09 07:56] VITALS: O2SAT 96
[2021-08-09] MEDS: Aspirin 81 MG TAB.CHEW PO (08:28)
[2021-08-09] MEDS: Pantoprazole Sodium 20 MG Tablet PO (08:28)
--- NOTE | 2021-08-09 10:00 | EKG12_ITS ---
Test Reason : PCI Blood Pressure : / mmHG Vent. Rate : 068 BPM Atrial Rate : 068 BPM P-R Int : 146 ms QRS Dur : 082 ms QT Int : 480 ms P-R-T Axes : 060 063 071 degrees QTc Int : 510 ms Normal sinus rhythm Septal infarct , age undetermined T wave abnormality, consider anterolateral ischemia Prolonged QT Abnormal ECG Confirmed by IVANA LACY, PASQUALE ([id number]), editor book PRASAD ROSEN ([id number]) on 08/10/2021 8:42:19 AM Referred By: IVANA Confirmed By:PASQUALE HEATH MD
[2021-08-09 10:23] VITALS: BP 119/66; PULSE 68; RESP 18; TEMP 36.8; O2SAT 97
[2021-08-09] MEDS: Potassium Chloride Oral Tablet 20 MEQ 40 MEQ PO (10:36)
[2021-08-09] MEDS: TICAGRELOR 90 MG TABLET PO (10:37)
[2021-08-09 10:41] VITALS: BP 119/66; PULSE 68
[2021-08-09] MEDS: Metoprolol Tartrate 25 MG Tablet PO (10:41)
[2021-08-09] MEDS: Lisinopril 2.5 MG Tablet PO (10:41)
[2021-08-09] MEDS: Atorvastatin Calcium 80 MG Tablet PO (10:41)
--- NOTE | 2021-08-09 11:47 | PCM.DC ---
Discharge Instructions Diet Discharge Diet: No restrictions Activity Discharge Activity: Return to Normal Activity Weight Bearing Status: Weight bearing as tolerated Dressing / Incision Call your doctor if you observe: Fever of 101 or Higher, Numbness or Tingling, Shortness of breath, Dizziness, Chest pain, Increased palpitations (irregular heartbeat) and Calf discomfort Follow Up Care Please Follow Up With: Primary care provider When: Within the next two weeks. Test Results: Test results from this visit will be discussed in further detail at your follow-up appointment, if applicable. Discharge Plan Admission Admit Date/Time: 08/07/21 17:52 Primary Reason for Your Visit: Chest pain Attending Provider: Bereket Johns Primary Care Provider: Care Physician,No Primary Consulting Providers: Karyn Perkins Discharge Orders/Prescriptions Prescriptions: New lisinopril 2.5 mg tablet 2.5 mg PO DAILY Qty: 30 RF: 0 Brilinta 90 mg tablet 90 mg PO BID Qty: 60 RF: 0 aspirin 81 mg capsule 81 mg PO DAILY Qty: 30 RF: 0 Continued citalopram 20 mg tablet 20 mg PO DAILY RF: 0 metoprolol tartrate 25 mg tablet 25 mg PO BID RF: 0 atorvastatin 80 mg tablet 80 mg PO DAILY RF: 0 omeprazole 20 mg capsule,delayed release(DR/EC) 20 mg PO BREAKFAST RF: 0 Discontinued lisinopril 5 mg tablet RF: 0 Referrals / Follow Up: Mk Drake MD [STAFF PHYSICIAN] - Within 2 Weeks Disposition Disposition (needs filled in before D/C Order can be placed): Home, Self Care
--- NOTE | 2021-08-09 11:56 | CASEMGMT ---
This RN CM to room to provided Brilinta coupon card. [facility] is very upset at this time [facility]. This RN CM provided daughter with coupon card w/ instructions, voices understanding. Advised daughter that d/c instructions are completed, if she can just get pt to wait a few moments to get instructions prior to leaving, daughter voices understanding and [place], U charge, to get instructions printed for pt ANKIT. Daughter voices no further questions/concerns. SStaten RN CM
--- NOTE | 2021-08-09 14:58 | DS.PCM_ITS ---
Documented by User: Kan FABIAN 08/09/21 15:02 Providers Date of Admission: 08/07/21 Primary Care Physician: Lisa Primary Care Phys Consultations 08/07/21 19:32 Consult: Cardiology Routine Consulting Provider: Karyn Perkins Reason for Consult: NSTEMI EMERGENT Consult: No MD Notified: Yes Date Notified: 08/08/21 Time Notified: 06:35 Method of Notification: Text Reason For Visit: NON-STEMI Diagnosis Discharge Diagnosis (1) Chest pain: Status: Acute Code(s): R07.9 - Chest pain, unspecified Medications at Discharge Home Medications atorvastatin 80 mg PO DAILY 08/07/21 citalopram 20 mg PO DAILY 08/07/21 metoprolol tartrate 25 mg PO BID 08/07/21 omeprazole 20 mg PO BREAKFAST 08/07/21 aspirin 81 mg PO DAILY #30 cap 08/09/21 lisinopril 2.5 mg PO DAILY #30 tab 08/09/21 ticagrelor [Brilinta] 90 mg PO BID #60 tab 08/09/21 Hospital Course Procedures Cardiac catheterization Summary of Care Provided Minutes Spent on Discharge: 35 Hospital Course: Discharge planning: Current plan is for patient to discharge home. 1) NSTEMI Cardiac catheterization obtained this morning and demonstrated total occlusion of stent in the LAD, first diagonal vessel with 90% stenosis, mild disease in the LCA, 50% mid segment stenosis in the RCA and left ventricular diastolic dysfunction with estimated EF of 40%. Given the above findings patient immediately underwent angioplasty and stenting to the LAD. Patient continued on aspirin, statin and beta-steven. Ticagrelor initiated. Patient is to follow- up with cardiology and her primary care provider within the next 2 weeks. 2) COVID-19 exposure Patient lives with her granddaughter who recently completed a COVID-19 quarantine. Rapid Covid is negative. Covid PCR is negative. Chest x-ray without any acute findings suggestive of COVID-19 pneumonia. 3) GERD Continue PPI. 4) HTN Continue home BP regimen. Patient seen by Kan Eli PA-C, under the supervision of Dr. Johns. Physical Exam Narrative Patient is a 51-year-old female comfortably resting in bed, alert and orient x3. Patient reports chest pain from admission is improved and denies development of any new symptoms overnight. Does not appear in acute distress. Const alert, oriented x3 and no apparent distress HEENT normocephalic, head/scalp atraumatic and hearing grossly normal bilaterally Eyes PERRL, EOMs intact bilaterally and conjunctivae normal Neck no lymphadenopathy, supple and no JVD Resp normal respiratory effort, no retractions, no use of accessory muscles and clear to auscultation bilaterally Cardio regular rate, regular rhythm, no murmurs and no JVD GI normal to inspection, nondistended, normoactive bowel sounds, soft to palpation and non-tender Extremity normal to inspection, full ROM and no clubbing, cyanosis or edema Skin no rashes or lesions noted, no wounds and skin turgor normal Neuro CN's II-XII intact bilaterally Psych affect normal Weight / BMI Weight Weight: 150 lb 12.739 oz Body Mass Index (BMI) 25.9 ABG / Lab / Microbiology Data Result Diagrams: 08/09/21 06:22 08/09/21 06:22 Laboratory: Laboratory Results - last 24 hr 08/09/21 06:22: WBC 11.2 H, RBC 4.27, Hgb 12.6, Hct 37.1, MCV 86.9, MCH 29.5, MCHC 34.0, RDW Std Deviation 41.0, RDW Coeff of Matt 13.1, Plt Count 226, MPV 10.3 08/09/21 06:22: Sodium 140, Potassium 3.4 L, Chloride 107, Carbon Dioxide 26.0, Anion Gap 7, BUN 11, Creatinine 0.61, Estim Creat Clear Calc 93.16, Est GFR (MDRD) Af Amer 132, Est GFR (MDRD) Non-Af 109, BUN/Creatinine Ratio 18.0, Glucose 84, Calcium 8.5, Total Bilirubin 1.20 H, AST 112 H, ALT 27, Alkaline Phosphatase 80, Total Protein 7.2, Albumin 3.3, Globulin 3.9, Albumin/Globulin Ratio 0.8 L Microbiology: Microbiology 08/07/21 15:27 Nasal Secretion SARS-CoV-2 Antigen (Rapid) - Final D/C Instructions Discharge Diet: No restrictions Weight Bearing Status: Weight bearing as tolerated Call your doctor if you observe: Fever of 101 or Higher, Numbness or Tingling, Shortness of breath, Dizziness, Chest pain, Increased palpitations (irregular heartbeat) and Calf discomfort Please Follow Up With: Primary care provider When: Within the next two weeks. Meaningful Use Info Meaningful Use Diagnoses (Choose all that apply): None applicable Discharge Plan Admission Admit Date/Time: 08/07/21 17:52 Primary Reason for Your Visit: Chest pain Attending Provider: Bereket Johns Primary Care Provider: Care Physician,No Primary Consulting Providers: Karyn Perkins Instructions Additional Instructions / Restrictions: Patient Problems: Altered Health Status related to Hospitalization Patient Goals: *Optimal Level of Health *Keep Appointments *Medication Compliance *Remain Safe Discharge Orders/Prescriptions Prescriptions: New lisinopril 2.5 mg tablet 2.5 mg PO DAILY Qty: 30 RF: 0 Brilinta 90 mg tablet 90 mg PO BID Qty: 60 RF: 0 aspirin 81 mg capsule 81 mg PO DAILY Qty: 30 RF: 0 Continued citalopram 20 mg tablet 20 mg PO DAILY RF: 0 metoprolol tartrate 25 mg tablet 25 mg PO BID RF: 0 atorvastatin 80 mg tablet 80 mg PO DAILY RF: 0 omeprazole 20 mg capsule,delayed release(DR/EC) 20 mg PO BREAKFAST RF: 0 Discontinued lisinopril 5 mg tablet RF: 0 Referrals / Follow Up: Mk Drake MD [STAFF PHYSICIAN] - Within 2 Weeks Disposition Disposition (needs filled in before D/C Order can be placed): Home, Self Care Documented by User: Dr. Bereket Johns DO 08/14/21 14:18 Providers Date of Admission: 08/07/21 Date of Discharge: 08/09/21 Reason For Visit: NON-STEMI Diagnosis Discharge Diagnosis (1) Cardiac enzymes elevated: Status: Acute Code(s): R74.8 - Abnormal levels of other serum enzymes Plan: Final diagnosis: #1 type II non-STEMI #2 occlusive coronary artery disease #3 cardiomyopathy-etiology unclear #4 essential hypertension #5 hyperlipidemia Medications at Discharge Home Medications atorvastatin 80 mg PO DAILY 08/07/21 citalopram 20 mg PO DAILY 11/28/21 metoprolol tartrate 25 mg PO BID 08/07/21 omeprazole 20 mg PO BREAKFAST 08/07/21 aspirin 81 mg PO DAILY #30 cap 08/09/21 lisinopril 2.5 mg PO DAILY #30 tab 08/09/21 ticagrelor [Brilinta] 90 mg PO BID #60 tab 08/09/21 ABG / Lab / Microbiology Data Result Diagrams: 08/09/21 06:22 08/09/21 06:22 Meaningful Use Info Meaningful Use Diagnoses (Choose all that apply): AMI AMI/Post PCI/Angioplasty Aspirin given w/in 24hrs of arrival?: Yes ASA at discharge?: Yes Antiplatelet Therapy at Discharge:: Yes Statins at discharge?: Yes Aaron/ARB at discharge?: Yes Beta Steven at discharge?: Yes Done w/ Acute CT measure.: Yes Documented LVEF (%): 40 Discharge Plan Admission Admit Date/Time: 08/07/21 17:52 Primary Reason for Your Visit: Chest pain Attending Provider: Bereket Johns Primary Care Provider: Care Physician,No Primary Consulting Providers: Karyn Perkins Instructions Additional Instructions / Restrictions: Patient Problems: Altered Health Status related to Hospitalization Patient Goals: *Optimal Level of Health *Keep Appointments *Medication Compliance *Remain Safe Discharge Orders/Prescriptions Prescriptions: New lisinopril 2.5 mg tablet 2.5 mg PO DAILY Qty: 30 RF: 0 Brilinta 90 mg tablet 90 mg PO BID Qty: 60 RF: 0 aspirin 81 mg capsule 81 mg PO DAILY Qty: 30 RF: 0 Continued citalopram 20 mg tablet 20 mg PO DAILY RF: 0 metoprolol tartrate 25 mg tablet 25 mg PO BID RF: 0 atorvastatin 80 mg tablet 80 mg PO DAILY RF: 0 omeprazole 20 mg capsule,delayed release(DR/EC) 20 mg PO BREAKFAST RF: 0 Discontinued lisinopril 5 mg tablet RF: 0 Referrals / Follow Up: Mk Drake MD [STAFF PHYSICIAN] - Within 2 Weeks Disposition Disposition (needs filled in before D/C Order can be placed): Home, Self Care Charges/Coding Addendum Addendum: Patient was seen and examined today independently of Kan Gillette, she does not complain of any chest pain or shortness of breath. On examination she appeared in good health and spirits, she does not appear to be in any distress. Vital signs as documented. Skin warm and dry and without overt rashes. Neck without JVD, thyroid appears normal, trachea is midline, neck is supple. Lungs clear, normal air movement was noted. Heart exam notable for regular rhythm, normal sounds and absence of murmurs, rubs or gallops. Abdomen unremarkable and without evidence of organomegaly, masses, or abdominal aortic enlargement, bowel sounds are present in all 4 quadrants, no abdominal tenderness was noted. Extremities nonedematous, no cyanosis was noted, no clubbing was noted. Neuro: Cranial nerves II through XII are grossly intact, no focal motor deficits were noted, sensation to light touch and pinprick is intact, motor exam 5/5 throughout. Psych: Patient is alert and oriented x3, she does not appear anxious or depressed, she does not appear agitated. Patient appears stable for discharge at this time, I have reviewed Kan Gillette's discharge summary including his medical assessment and plan of care and endorse it. Visit Charges Inpatient E&M: [id number] Disch Hosp
== END 2021-08-09 12:23 | disposition home or self-care (01) | DRG 174 ==
LOC: ED 15:40 → PCU 18:21
PROVIDERS: Physician Assistant; Specialist; Admitting Provider Family Medicine; Emergency Provider Emergency Medicine; Visit Provider Internal Medicine
DX: I21.3 ST elevation (STEMI) myocardial infarction of unspecified site (principal); I25.10 Atherosclerotic heart disease of native coronary artery without angina pectoris; Z20.822 Contact with and (suspected) exposure to COVID-19; K21.9 Gastro-esophageal reflux disease without esophagitis; I10 Essential (primary) hypertension; F17.210 Nicotine dependence, cigarettes, uncomplicated; E78.00 Pure hypercholesterolemia, unspecified; Z86.73 Personal history of transient ischemic attack (TIA), and cerebral infarction without residual deficits; Z88.0 Allergy status to penicillin; Z90.710 Acquired absence of both cervix and uterus; Z87.440 Personal history of urinary (tract) infections
CPT/HCPCS: 36415; 71045; 80048; 80053; 80061; 83735; 84484; 85025; 85027; 85610; 85730; 87426; 87635; 92928; 92929; 93005; 93458; 99152; 99153; 99285; 99406; C1757; C1874; J7030; Q9967; U0005; A4216; C1725; C1769; C1887; C1894; C9600; C9601; J1327; J2405; U0003

== ENCOUNTER 2021-11-11 11:32 | Outpatient (CLI) | payer MEDICAID, SELFPAY ==
[2021-11-11 14:45] LABS: Absolute Lymphocyte Count 2.84 X10^3/uL (0.83-4.51); Basophil# 0.06 X10^3/uL; Basophil% 0.9 % (0-1); Eosinophil# 0.16 X10^3/uL; Eosinophils% 2.5 % (0-5); Hematocrit 44.8 % (37-47); Hemoglobin 15.1 g/dL (12.0-15.0); Lymphocyte # 2.84 X10^3/ul (0.83-4.51); Lymphocyte % 44.6 % (19-41); Mean Corp Hgb Conc 33.7 g/dL (32-36); Mean Corpuscular Hgb 30.8 pg (27.0-32.0); Mean Corpuscular Volume 91.4 fL (81-99); Monocyte# 0.34 X10^3/uL; Monocyte% 5.3 % (0-10); NRBC Flagged by Analyzer 0 % (0-5); Neutrophil # 2.95 X10^3/uL (2.7-7.7); Neutrophil % 46.4 % (47-70); Platelet Count 233 K/mm3 (150-450); RBC Distribution Width CV 13.3 % (11.6-14.6); RBC Distribution Width SD 44.8 fl (35.1-43.9); White Blood Count 6.4 K/mm3 (4.4-11.0)
[2021-11-11 15:07] LABS: ALB/GLOB Ratio 0.9 RATIO (0.9-2.4); AST(SGOT) 23 U/L (15-37); Alanine Aminotransfer ALT/SGPT 38 U/L (13-56); Albumin, Serum 3.9 g/dL (3.2-5.0); Alkaline Phosphatase 94 U/L (45-117); Anion Gap 0 (5-15); BUN 8 mg/dL (7-18); BUN/Creat Ratio 10.6 RATIO (10-20); Calcium,Total 9.7 mg/dL (8.5-10.1); Chloride 110 mmol/L (98-107); Creatinine, Serum 0.76 mg/dL (0.55-1.02); EST Glomerular Filtration Rate 86 mL/min (>60); Est Glom Filt Rate - Afr Amer 103 mL/min (>60); Globulin 4.2 g/dL (2.2-4.2); Glucose 92 mg/dL (74-106); Potassium 4.3 mmol/L (3.5-5.1); Protein, Total 8.1 g/dL (6.4-8.2); Sodium Level 141 mmol/L (136-145); T4 Free Direct 0.88 ng/dL (0.76-1.46); Thyroid Stim Hormone (TSH) 1.35 uIU/mL (0.358-3.74)
== END 2021-11-11 23:59 | disposition home or self-care (01) ==
PROVIDERS: PCP Internal Medicine; Referring Provider Internal Medicine; Visit Provider Internal Medicine
DX: I47.2 Ventricular tachycardia (principal); I10 Essential (primary) hypertension; I25.10 Atherosclerotic heart disease of native coronary artery without angina pectoris
CPT/HCPCS: 36415; 80053; 84439; 84443; 85025

== ENCOUNTER 2021-11-18 11:46 | Outpatient (CLI) | payer MEDICAID, SELFPAY | END 2021-11-18 23:59 | disposition home or self-care (01) | LOC: PSN 11:48 | PROVIDERS: PCP Internal Medicine; Referring Provider Internal Medicine; Visit Provider Internal Medicine | DX: I47.2 Ventricular tachycardia (principal); I10 Essential (primary) hypertension | CPT/HCPCS: 93225; 93226 ==

== ENCOUNTER 2021-12-04 12:34 | Inpatient (IN) | payer MEDICAID, SELFPAY ==
[2021-12-04] VITALS (9 sets, daily range): BP systolic 88–137; BP diastolic 53–99; PULSE 73–98; RESP 12–18; TEMP 36.7–36.9; O2SAT 97–99; BMI 25.5; BMI 25.4
--- NOTE | 2021-12-04 13:02 | EKG12_ITS ---
Test Reason : Blood Pressure : / mmHG Vent. Rate : 092 BPM Atrial Rate : 092 BPM P-R Int : 138 ms QRS Dur : 078 ms QT Int : 366 ms P-R-T Axes : 075 064 076 degrees QTc Int : 452 ms Normal sinus rhythm with sinus arrhythmia Septal infarct , age undetermined T wave abnormality, consider anterior ischemia Abnormal ECG Confirmed by IDALMIS LACY, ARIANNA ([id number]), health editor PRASAD ROSEN ([id number]) on 12/06/2021 10:37:49 AM Referred By: BLAIRE Confirmed By:ARIANNA RAYGOZA MD
--- NOTE | 2021-12-04 13:03 | EDS_ITS ---
HPI History of Present Illness Chief Complaint: Palpitations Detail of Chief Complaint: Palpitation and not feeling well today Informant: patient Narrative Narrative: Patient presents to the emergency department with palpitations that she was feeling yesterday that were more than usual. Patient states she has a history of some chronic palpitations. She recently wore a Holter monitor for 48 hours and is scheduled to have an echocardiogram tomorrow. Patient states that she had 2 cardiac stents placed 2 months ago in her LAD. Patient had an episode this morning when she stood up out of the bathtub where she had a severe palpitation that then caused her to feel anxious and weak and hot on the inside and jittery. On arrival to the emergency department she states that she feels great and really not having any chest pain feels quite well. Patient also says she has been under increased stress at home as she has 2 children that are addicts and ones at home. Prior similar symptoms: Yes PFSH PFSH Medical History (Updated 12/04/21 @ 15:[address] Roosevelt Huffman, DO) Anemia Atherosclerotic heart disease of [place] coronary artery without angina pectoris Cardiac enzymes elevated Cervical cancer Essential hypertension GERD (gastroesophageal reflux disease) HLD (hyperlipidemia) Nonsustained paroxysmal ventricular tachycardia Seasonal allergies STEMI (ST elevation myocardial infarction) Tobacco abuse Home Medications aspirin 81 mg capsule 81 mg PO DAILY #30 cap 09/07/21 [Rx Last Taken Unknown] atorvastatin 80 mg tablet 80 mg PO DAILY #30 tab 09/07/21 [Rx Last Taken Unknown] clopidogrel 75 mg tablet 75 mg PO .COMPLEX #30 tab 09/07/21 [Rx Last Taken Unknown] lisinopril 2.5 mg tablet 2.5 mg PO DAILY #60 tab 09/07/21 [Rx Last Taken Unknown] metoprolol tartrate 25 mg tablet 25 mg PO BID #60 tab 09/07/21 [Rx Last Taken Unknown] omeprazole 20 mg capsule,delayed release 20 mg PO BREAKFAST #30 cap 11/14/21 [Rx Last Taken Unknown] citalopram 20 mg tablet 20 mg PO DAILY #30 tab 12/02/21 [Rx Last Taken Unknown] Allergy/AdvReac Type Severity Reaction Status Date / Time albuterol Allergy Mild unknown Verified 12/04/21 12:41 penicillin V Allergy Mild unkonwn Verified 12/04/21 12:41 amoxicillin Allergy Hives Verified 12/04/21 12:41 Family History (Updated 08/16/21 @ 13:03 by Jessie Ramon) Other Alcoholism Anemia Anxiety Arthritis CVA (cerebral vascular accident) Cancer Cervical cancer Colon cancer DVT (deep venous thrombosis) Depression Diabetes Heart disease High cholesterol Hypertension Myocardial infarction Ovarian cancer Thyroid disorder Surgical History History of coronary artery stent placement (08/08/21) History of hysterectomy History of intravascular stent placement Social History (Updated 08/16/21 @ 13:03 by Jessie Ramon) Smoking Status: Current every day smoker tobacco type: cigarettes Tobacco: How many years used: 30 alcohol intake: never substance use type: former substance user and marijuana what type of physical activity do you participate in: none ROS ROS ED Constitutional Constitutional ED: Reports systems reviewed and no addt'l complaints, except as documented; Denies body ache(s), change in weight or chills Eyes Eyes: Denies acute decrease in peripheral vision, change in vision, double vision or loss of vision ENT ENT ED: Reports none; Denies ear pain, lip swelling, loss taste/smell, neck pain, otalgia or sore throat Cardiovascular Cardiovascular: Reports none and palpitations; Denies abdominal pain, chest pain with activity, leg edema, lightheadedness, rapid heart rate or syncope Respiratory/Chest Respiratory/Chest: Reports none; Denies change in mental status, dry cough, dyspnea, hemoptysis, shortness of breath at rest or shortness of breath with exertion Gastrointestinal Gastrointestinal: Reports none; Denies abdominal pain, change in stool character, diarrhea, hematemesis, hematochezia, melena, rectal bleeding or vomiting Genitourinary Genitourinary ED: Reports none; Denies abdominal discomfort, anuria, dysuria, genital pain or polyuria Musculoskeletal Musculoskeletal: Reports none; Denies arthralgias, back pain, difficulty walking, extremity pain, muscle weakness or myalgias Integumentary Reports none; Denies abscess or rash Neurologic Neurologic: Reports none; Denies abnormal gait, confusion, focal weakness, frequent falls, headache(s), loss of vision, numbness, paresthesias, radicular pain, vertigo or weakness Psychiatric Psychiatric: Reports systems reviewed and no addt'l complaints, except as documented, none and anxiety; Denies behavioral changes, confusion, difficulty concentrating, hallucinations, suicidal ideation, tactile hallucinations or visual hallucinations Endocrine Endocrinology: Denies none, cold intolerance, excessive sweating, fatigue or heat intolerance Hematologic/Lymphatic Hematologic/Lymphatic: Reports none; Denies anemia, easy bleeding or easy bruising Allergic/Immunologic Allergic/Immunologic ED: Denies as per HPI, none, lip swelling, mouth swelling, throat swelling, tongue swelling or hives EXAM Physical Exam Const Vital Signs: 12/04/21 12:35 12/04/21 12:39 Temperature 98.4 F Temperature Source Oral Pulse Rate 98 Respiratory Rate 14 Respiratory Effort Normal Non-Labored Blood Pressure 96/83 H Blood Pressure Mean 87 Pulse Ox 98 Oxygen Delivery Method Room Air Positive well nourished and well developed General Appearance ED: well developed and NAD HEENT Reports TM's clear and moist mucous membranes normocephalic and atraumatic; Negative for trauma or tenderness Tympanic Membrane ED: Yes TM's clear Eyes PERRL and EOMs intact bilaterally General Eye ED: Negative for pale conjunctiva or scleral icterus Neck no lymphadenopathy, supple and no JVD General: Negative for tenderness Chest Wall inspection of chest normal and palpation of chest normal Chest: Negative for tenderness Resp normal respiratory effort and clear to auscultation bilaterally Effort and Inspection: Negative for respiratory distress or pain with movement Auscultation: Negative for rhonchi, wheezes or diminished lung sounds Cardio regular rate, regular rhythm, S1 normal heart sound, S2 normal heart sound and no murmurs Peripheral Pulses: pulses 2+ throughout GI normal to inspection, nondistended, normoactive bowel sounds, soft to palpation, non-tender, non-distended and no masses Back/Spine no CVA tenderness and no thoracic nor lumbar tenderness Extremity normal to inspection General Extremety ED: Negative for edema General Extremity: Negative for edema Neuro oriented x3, CN's II-XII intact bilaterally, no sensory deficits noted and gait normal Sensorium / Orientation: awake, alert, oriented to person, oriented to place and oriented to time Motor Exam: strength 5/5 throughout and strength abnormal Psych mental status grossly normal Skin no rashes or lesions noted and no wounds MDM MDM MDM Narrative Medical decision making narrative: ?On arrival. Patient placed on a monitoring and evaluation advisor. I did give patient aspirin. Patient was not having any chest discomfort. She was noted to have an elevated troponin of 372. Delta troponin at 2 hours was obtained and was 382. At this point I feel patient should be admitted as she does have a heart score of 7. Patient will be started on heparin drip. I suspect she may be having a non-ST [place]. Lab Data Attestation: I reviewed the patient's lab results. Labs: Laboratory Results - last 24 hr 12/04/21 12/04/21 12/04/21 12:40 12:40 14:40 WBC 7.8 RBC 5.11 Hgb 15.8 H Hct 44.1 MCV 86.3 MCH 30.9 MCHC 35.8 RDW Std Deviation 40.3 RDW Coeff of Matt 12.9 Plt Count 248 MPV 10.7 Immature Gran % (Auto) 0.400 Neut % (Auto) 57.5 Lymph % (Auto) 34.8 [place] % (Auto) 4.9 Eos % (Auto) 1.9 Baso % (Auto) 0.5 Absolute Neuts (auto) 4.5 Absolute Lymphs (auto) 2.71 Nucleated RBC % 0 Sodium 139 Potassium 3.7 Chloride 110 H Carbon Dioxide 24.0 Anion Gap 5 BUN 16 Creatinine 0.74 Estim Creat Clear Calc 73.56 Est GFR (MDRD) Af Amer 106 Est GFR (MDRD) Non-Af 88 BUN/Creatinine Ratio 21.7 H Glucose 114 H Calcium 9.6 Troponin I High Sens 372 H* 382 H* EKG Initial EKG: Attestation: I personally reviewed and interpreted this EKG as follows: Comments: Sinus rhythm with a rate of 92 bpm with old septal infarct. Patient with nonspecific ST changes noted anteriorly. Prior EKG tracings: available for review Prior: Unchanged Discharge Plan Dx/Rx/DC Orders Clinical Impression: Non-ST elevated myocardial infarction (non-STEMI), Heart palpitations Disposition Disposition: Acute Care Hospital [facility]
[2021-12-04 13:33] LABS: Absolute Lymphocyte Count 2.71 X10^3/uL (0.83-4.51); Absolute Neutrophil Count 4.5 X10^3/uL (2.0-7.7); Basophil# 0.04 X10^3/uL; Basophil% 0.5 % (0-1); Eosinophil# 0.15 X10^3/uL; Eosinophils% 1.9 % (0-5); Hematocrit 44.1 % (37-47); Hemoglobin 15.8 g/dL (12.0-15.0); Lymphocyte # 2.71 X10^3/ul (0.83-4.51); Lymphocyte % 34.8 % (19-41); Mean Corp Hgb Conc 35.8 g/dL (32-36); Mean Corpuscular Hgb 30.9 pg (27.0-32.0); Mean Corpuscular Volume 86.3 fL (81-99); Mean Platelet Vol. 10.7 fl (6.2-12.0); Monocyte# 0.38 X10^3/uL; Monocyte% 4.9 % (0-10); NRBC Flagged by Analyzer 0 % (0-5); Neutrophil # 4.47 X10^3/uL (2.7-7.7); Neutrophil % 57.5 % (47-70); Platelet Count 248 K/mm3 (150-450); RBC Distribution Width CV 12.9 % (11.6-14.6); RBC Distribution Width SD 40.3 fl (35.1-43.9); Red Blood Count 5.11 M/mm3 (4.2-5.4); White Blood Count 7.8 K/mm3 (4.4-11.0)
[2021-12-04 14:02] LABS: Anion Gap 5 (5-15); BUN 16 mg/dL (7-18); BUN/Creat Ratio 21.7 RATIO (10-20); Calcium,Total 9.6 mg/dL (8.5-10.1); Chloride 110 mmol/L (98-107); Creatinine, Serum 0.74 mg/dL (0.55-1.02); EST Glomerular Filtration Rate 88 mL/min (>60); Est Glom Filt Rate - Afr Amer 106 mL/min (>60); Estimated Creatinine Clearance 73.56 ml/min; Glucose 114 mg/dL (74-106); Potassium 3.7 mmol/L (3.5-5.1); Sodium Level 139 mmol/L (136-145); Troponin-I HS 372 pg/mL (3.0-54.0)
[2021-12-04 15:12] LABS: Troponin-I HS 382 pg/mL (3.0-54.0)
[2021-12-04 15:41] LABS: Prothrombin Time (Protime)PT. 12.5 SECONDS (11.7-14.9)
[2021-12-04 15:42] LABS: Partial Thromboplast Time 33.4 Seconds (24.1-36.2)
--- NOTE | 2021-12-04 15:58 | HP.PCM.HOS_ITS ---
Documented by User: Carmelina Irvin NP, PELLET MACHINE OPERATOR-C 12/04/21 16:10 HPI - General General Date of Admission: 12/04/21 Date of Service: 12/04/21 Chief Complaint: Palpitations HPI Narrative BRANT LANTIGUA, is a 51 F who presents to the emergency room due to palpitations. Patient states this began this morning. She states her palpitations feel very strong with associated shortness of breath and nausea. She denies chest pain however states one of her palpitations this morning almost knocked me on my butt. She states she has had 2 prior heart attacks and was fairly asymptomatic with those. Patient does report she has been under increased stress recently related to custody/drug issue with one of her children. She is tearful during conversation as she states her family issues have been put before her own h ealth. She reports her first heart attack was approximately 10 years ago. She has a past medical history of CAD with history of stent, hypertension, hyperlipidemia, nonsustained paroxysmal ventricular tachycardia, tobacco dependence. [facility]LY [facility] Medical History Anemia Atherosclerotic heart disease of [place] coronary artery without angina pectoris Cardiac enzymes elevated Cervical cancer Essential hypertension GERD (gastroesophageal reflux disease) HLD (hyperlipidemia) Nonsustained paroxysmal ventricular tachycardia Seasonal allergies STEMI (ST elevation myocardial infarction) Tobacco abuse Home Medications aspirin 81 mg capsule 81 mg PO DAILY #30 cap 09/07/21 [Rx Last Taken Unknown] atorvastatin 80 mg tablet 80 mg PO DAILY #30 tab 09/07/21 [Rx Last Taken Unknown] lisinopril 2.5 mg tablet 2.5 mg PO DAILY #60 tab 09/07/21 [Rx Last Taken Unknown] metoprolol tartrate 25 mg tablet 25 mg PO BID #60 tab 09/07/21 [Rx Last Taken Unknown] omeprazole 20 mg capsule,delayed release 20 mg PO BREAKFAST #30 cap 11/14/21 [Rx Last Taken Unknown] citalopram 20 mg tablet 20 mg PO DAILY #30 tab 12/02/21 [Rx Last Taken Unknown] clopidogrel 75 mg PO DAILY 12/04/21 [History Last Taken Unknown] multivitamin 1 tab PO DAILY 12/04/21 [History Last Taken Unknown] Allergy/AdvReac Type Severity Reaction Status Date / Time albuterol Allergy Mild unknown Verified 12/04/21 12:41 penicillin V Allergy Mild unkonwn Verified 12/04/21 12:41 amoxicillin Allergy Hives Verified 12/04/21 12:41 Family History Other Alcoholism Anemia Anxiety Arthritis CVA (cerebral vascular accident) Cancer Cervical cancer Colon cancer DVT (deep venous thrombosis) Depression Diabetes Heart disease High cholesterol Hypertension Myocardial infarction Ovarian cancer Thyroid disorder Surgical History History of coronary artery stent placement (08/08/21) History of hysterectomy History of intravascular stent placement Social History Smoking Status: Current every day smoker tobacco type: cigarettes Tobacco: How many years used: 30 alcohol intake: never substance use type: former substance user and marijuana what type of physical activity do you participate in: none ROS Constitutional Constitutional: Denies change in weight, chills, fatigue, fever(s) or weakness Cardiovascular Cardiovascular: Reports palpitations; Denies chest pain, edema, lightheadedness or syncope Respiratory/Chest Respiratory/Chest: Reports dyspnea; Denies cough, productive cough or wheezing Gastrointestinal Gastrointestinal: Reports nausea; Denies abdominal pain, constipation, diarrhea or vomiting Genitourinary Genitourinary: Denies burning urination, difficulty urinating, dysuria, hematuria, urinary frequency, urinary incontinence or urinary urgency Musculoskeletal Musculoskeletal: Denies back pain, joint pain or muscle weakness Integumentary Integumentary: Denies erythema, lesions, rash or wounds Neurologic Neurologic: Denies abnormal speech, confusion, dizziness, focal weakness, numbness, paresthesias, seizure-like activity or syncope Psychiatric Psychiatric: Reports anxiety; Denies depression Hematologic/Lymphatic Hematologic/Lymphatic: Denies anemia, easy bleeding or easy bruising Allergic/Immunologic Allergic/Immunologic: Denies hives or asthma Vital Signs Vital Signs Vital Signs: 12/04/21 12:35 12/04/21 12:39 12/04/21 13:00 Temperature 98.4 F Temperature Source Oral Pulse Rate 98 84 Respiratory Rate 14 12 Respiratory Effort Normal Non-Labored Blood Pressure 96/83 H 88/53 L Blood Pressure Mean 87 64 Pulse Ox 98 98 Oxygen Delivery Method Room Air Room Air 12/04/21 14:00 12/04/21 15:00 Temperature Temperature Source Pulse Rate 82 87 Respiratory Rate 15 16 Respiratory Effort Blood Pressure 114/99 H 95/54 L Blood Pressure Mean 104 67 Pulse Ox 99 99 Oxygen Delivery Method Room Air Room Air Weight Weight: 144 lb 2.917 oz Body Mass Index (BMI) 25.5 Physical Exam Const alert, oriented x3 and no apparent distress Orientation / Consciousness: awake, oriented to person, oriented to place and oriented to time HEENT normocephalic and moist oral mucous membranes Eyes PERRL, EOMs intact bilaterally and conjunctivae normal Neck no lymphadenopathy Resp normal respiratory effort and clear to auscultation bilaterally Cardio regular rate, regular rhythm and no murmurs Peripheral Pulses: pulses 2+ throughout GI normal to inspection, nondistended, normoactive bowel sounds, non-tender and non-distended Extremity normal to inspection Skin no rashes or lesions noted Lesions: no lesions Rashes: no rashes Trauma: no lacerations or abrasions Neuro CN's II-XII intact bilaterally, no focal motor deficits, no sensory deficits noted and deep tendon reflexes 2+ bilaterally Psych mental status grossly normal Mood & Affect: anxious Results Lab / Micro Data Result Diagrams: 12/04/21 12:40 12/04/21 12:40 Labs: Laboratory Results - last 24 hr 12/04/21 12:40: WBC 7.8, RBC 5.11, Hgb 15.8 H, Hct 44.1, MCV 86.3, MCH 30.9, MCHC 35.8, RDW Std Deviation 40.3, RDW Coeff of Matt 12.9, Plt Count 248, MPV 10.7, Immature Gran % (Auto) 0.400, Neut % (Auto) 57.5, Lymph % (Auto) 34.8, [place] % (Auto) 4.9, Eos % (Auto) 1.9, Baso % (Auto) 0.5, Absolute Neuts (auto) 4.5, Absolute Lymphs (auto) 2.71, Nucleated RBC % 0 12/04/21 12:40: Sodium 139, Potassium 3.7, Chloride 110 H, Carbon Dioxide 24.0, Anion Gap 5, BUN 16, Creatinine 0.74, Estim Creat Clear Calc 73.56, Est GFR (MDRD) Af Amer 106, Est GFR (MDRD) Non-Af 88, BUN/Creatinine Ratio 21.7 H, Glucose 114 H, Calcium 9.6, Troponin I High Sens 372 H* 12/04/21 12:40: PT 12.5, INR 1.0, APTT 33.4 12/04/21 14:40: Troponin I High Sens 382 H* Assessment & Plan Assessment/Plan (1) Heart palpitations: (2) Non-ST elevated myocardial infarction (non-STEMI): PLAN: 1. NSTEMI-trend enzymes. EKG without acute ST-T changes. On heparin drip. Cardiology consulted. Plan for cath and echo in a.m. 2. Palpitations/paroxysmal nonsustained V. tach-recent 48-hour Holter monitor with 106 beats of ventricular bigeminy, 1 wide-complex ventricular run totaling 9 beats. Continue beta-missy. Monitor telemetry. Check mag. Recent TSH/free T4 normal. Cardiology following as noted above. 3. CAD with history of stent-on aspirin, Plavix, statin, lisinopril, metoprolol. 4. Hypertension-stable, continue lisinopril, Toprol. 5. Hyperlipidemia-continue statin. 6. Paroxysmal nonsustained V. tach- 7. Depression/anxiety-on citalopram. 8. GERD-continue PPI. 9. Tobacco dependence- encouraged cessation. Nicotine replacement patch if yumiko ired. DVT prophylaxis-heparin drip. This patient was seen by Carmelina Irvin NP-Reilly under the supervision of Dr. Johns. Time spent examining patient, reviewing data and subsequent management of care: 17 minutes Documented by User: Dr. Bereket Johns DO 12/04/21 18:29 HPI - General General Date of Admission: 12/04/21 [facility] Medical History Anemia Atherosclerotic heart disease of [place] coronary artery without angina pectoris Cardiac enzymes elevated Cervical cancer Essential hypertension GERD (gastroesophageal reflux disease) HLD (hyperlipidemia) Nonsustained paroxysmal ventricular tachycardia Seasonal allergies STEMI (ST elevation myocardial infarction) Tobacco abuse Home Medications aspirin 81 mg capsule 81 mg PO DAILY #30 cap 09/07/21 [Rx Last Taken Unknown] atorvastatin 80 mg tablet 80 mg PO DAILY #30 tab 09/07/21 [Rx Last Taken U nknown] lisinopril 2.5 mg tablet 2.5 mg PO DAILY #60 tab 09/07/21 [Rx Last Taken Unknown] metoprolol tartrate 25 mg tablet 25 mg PO BID #60 tab 09/07/21 [Rx Last Taken Unknown] omeprazole 20 mg capsule,delayed release 20 mg PO BREAKFAST #30 cap 11/14/21 [Rx Last Taken Unknown] citalopram 20 mg tablet 20 mg PO DAILY #30 tab 12/02/21 [Rx Last Taken Unknown] clopidogrel 75 mg PO DAILY 12/04/21 [History Last Taken Unknown] multivitamin 1 tab PO DAILY 12/04/21 [History Last Taken Unknown] Allergy/AdvReac Type Severity Reaction Status Date / Time albuterol Allergy Mild unknown Verified 12/04/21 12:41 penicillin V Allergy Mild unkonwn Verified 12/04/21 12:41 amoxicillin Allergy Hives Verified 12/04/21 12:41 Family History (Reviewed 12/04/21 @ 16:02 by Carmelina Irvin PELLET MACHINE OPERATOR, PELLET MACHINE OPERATOR-C) Other Alcoholism Anemia Anxiety Arthritis CVA (cerebral vascular accident) Cancer Cervical cancer Colon cancer DVT (deep venous thrombosis) Depression Diabetes Heart disease High cholesterol Hypertension Myocardial infarction Ovarian cancer Thyroid disorder Surgical History (Reviewed 12/04/21 @ 16:02 by Carmelina Irvin PELLET MACHINE OPERATOR, PELLET MACHINE OPERATOR-C) History of coronary artery stent placement (08/08/21) History of hysterectomy History of intravascular stent placement Social History (Reviewed 12/04/21 @ 16:02 by Carmelina Irvin PELLET MACHINE OPERATOR, PELLET MACHINE OPERATOR-C) Smoking Status: Current every day smoker tobacco type: cigarettes Tobacco: How many years used: 30 alcohol intake: never substance use type: former substance user and marijuana what type of physical activity do you participate in: none Results Lab / Micro Data Result Diagrams: 12/04/21 12:40 12/04/21 12:40 Charges/Coding Addendum Addendum: Patient was seen and examined independently of Carmelina Irvin, she came to the ER today after experiencing precordial chest discomfort while bathing. Patient felt like she was having palpitations also. Patient has a history of coronary artery disease and stent placement-the last time she was in the hospital was July 2021. On examination she appeared in good health and spirits, she does not appear to be in any distress. Vital signs as documented. Skin warm and dry and without overt rashes. Neck without JVD, thyroid appears normal, trachea is midline, neck is supple. Lungs clear, normal air movement was noted. Heart exam notable for regular rhythm, normal sounds and absence of murmurs, rubs or gallops. Abdomen unremarkable and without evidence of organomegaly, masses, or abdominal aortic enlargement, bowel sounds are present in all 4 quadrants, no abdominal tenderness was noted. Extremities nonedematous, no cyanosis was noted, no clubbing was noted. Neuro: Cranial nerves II through XII are grossly intact, no focal motor deficits were noted, sensation to light touch and pinprick is intact, motor exam 5/5 throughout. Psych: Patient is alert and oriented x3, she does not appear anxious or depressed, she does not appear agitated. Labs showed a elevated troponin, this was repeated in the second troponin was 10 points higher. Patient's EKG did not show any acute ischemic changes, patient's chest x-ray was unremarkable. Impression: #1 [id number] will be admitted to PCU, cardiac enzymes will be cycled, she was placed on a heparin drip, she will be seen by cardiology and more than likely undergo a cardiac catheterization tomorrow. #2 cardiac arrhythmias-patient had nonsustained ventricular tachycardia noted on her Holter monitor as an outpatient, this will be addressed by cardiology. #3 hyperlipidemia-patient is on Lipitor #4 essential hypertension-patient will remain on her current medications #5 chronic depression-patient is currently on Lexapro I have reviewed Carmelina Irvin's history and physical including her medical assessment and plan of care and with the above additions endorse it. Total clinical time spent by myself addressing the patient's medical issues, reviewing the patient's medical data, and collaborating with the patient's care team: 53 minutes Visit Charges Inpatient E&M: 18787 Init Hosp L3
[2021-12-04] MEDS: 0.9% Normal Saline 1,000 ML 150 ML IV (16:24)
[2021-12-04] MEDS: Aspirin 81 MG TAB.CHEW 324 MG PO (16:24)
[2021-12-04] MEDS: Heparin Injection (Vial) 5,000 UNIT/ML VIAL 4500 UNIT IV (16:25)
--- NOTE | 2021-12-04 16:30 | RAD_ITS ---
STUDY: X-RAY CHEST REASON FOR EXAM: Female, 51 years old. palpitations TECHNIQUE: 1 view COMPARISON: 08/07/2021 FINDINGS: Cardiomediastinal silhouette is unremarkable. Costophrenic angles are sharp. Lungs are clear. The trachea is midline. There is no pneumothorax. The bones are grossly intact. RAD/Chest 1 View (Portable) IMPRESSION: No acute cardiopulmonary process. Electronically Signed: Huy Pearson MD at 17:16 EDT ,
--- NOTE | 2021-12-04 16:38 | CON.PCM.CA_ITS ---
Assessment & Plan Assessment/Plan (1) Tobacco abuse: (2) Nonsustained paroxysmal ventricular tachycardia: (3) Atherosclerotic heart disease of [place] coronary artery without angina pectoris: (4) History of coronary artery stent placement: (5) Essential hypertension: (6) Non-ST elevated myocardial infarction (non-STEMI): PLAN: 51-year-old patient with significant coronary artery disease With history of PCI and stent of LAD She had normal left main, occluded stent of LAD in August 08, 2021 underwent PCI and stenting using drug-eluting stent Orsiro/ 3 x 15 mm and 2.5 x 18 meter. She had D1 90% and she has RCA 50%, mild disease in the left circumflex This presentation with symptoms of shortness of breath palpitation also she had symptoms of chest discomfort couple of days according to patient Also patient continued to smoke/abuse tobacco She was on dual antiplatelet therapy with aspirin, Plavix, atorvastatin lisinopril and metoprolol Last echocardiogram ejection fraction of around 40%. This presentation she had elevated high sensitive troponin([id number]) Cardiac care plan and recommendations; 1. Very high risk patient with recurrent and progressive coronary atherosclerosis involving the LAD With a PCI in August 08, 2021 for non-STEMI and has episode of nonsustained V. tach at that time This presentation is with symptoms of palpitation chest pain which resolved and I recommend; 1. Continue on anticoagulation with heparin 2. Continue dual antiplatelet therapy 3. Cardiac catheterization on Sunday, advised cessation of smoking 4. Consider to change Plavix to Brilinta based on the finding of cardiac catheterization 5. She is on high-dose statin atorvastatin 80 mg. I discussed the cardiac care plan recommendation in detail with the patient she elected to proceed for cardiac cath we will set up for tomorrow. HPI Consult Data Date of Consult: 12/04/21 HPI Narrative Reason for Consultation: CAD/NSTEMI HPI Narrative: BRANT LANTIGUA, is a 51 F who presents [facility] Medical History Anemia Atherosclerotic heart disease of [place] coronary artery without angina pectoris Cardiac enzymes elevated Cervical cancer Essential hypertension GERD (gastroesophageal reflux disease) HLD (hyperlipidemia) Nonsustained paroxysmal ventricular tachycardia Seasonal allergies STEMI (ST elevation myocardial infarction) Tobacco abuse Home Medications aspirin 81 mg capsule 81 mg PO DAILY #30 cap 09/07/21 [Rx Last Taken Unknown] atorvastatin 80 mg tablet 80 mg PO DAILY #30 tab 09/07/21 [Rx Last Taken Unknown] lisinopril 2.5 mg tablet 2.5 mg PO DAILY #60 tab 09/07/21 [Rx Last Taken Unknown] metoprolol tartrate 25 mg tablet 25 mg PO BID #60 tab 09/07/21 [Rx Last Taken Unknown] omeprazole 20 mg capsule,delayed release 20 mg PO BREAKFAST #30 cap 11/14/21 [Rx Last Taken Unknown] citalopram 20 mg tablet 20 mg PO DAILY #30 tab 12/02/21 [Rx Last Taken Unknown] clopidogrel 75 mg PO DAILY 12/04/21 [History Last Taken Unknown] multivitamin 1 tab PO DAILY 12/04/21 [History Last Taken Unknown] Allergy/AdvReac Type Severity Reaction Status Date / Time albuterol Allergy Mild unknown Verified 12/04/21 12:41 penicillin V Allergy Mild unkonwn Verified 12/04/21 12:41 amoxicillin Allergy Hives Verified 12/04/21 12:41 Family History Other Alcoholism Anemia Anxiety Arthritis CVA (cerebral vascular accident) Cancer Cervical cancer Colon cancer DVT (deep venous thrombosis) Depression Diabetes Heart disease High cholesterol Hypertension Myocardial infarction Ovarian cancer Thyroid disorder Surgical History History of coronary artery stent placement (08/08/21) History of hysterectomy History of intravascular stent placement Social History Smoking Status: Current every day smoker tobacco type: cigarettes Tobacco: How many years used: 30 alcohol intake: never substance use type: former substance user and marijuana what type of physical activity do you participate in: none Physical Exam Narrative Seen and evaluated in the ER, daughter at bedside Not in acute distress does not have symptoms of active chest pain Cardiovascular exam S1-S2 regular there is no murmur no systolic or diastolic murmur Chest exam clear to auscultation bilateral Examination abdomen soft Examination lower extremity no lower extremity edema Central nervous system exam no focal logical deficit. Risk Stratification Risk Stratification Applicable: Yes Age >/= 65: No >/= 3 CAD Risk Factors (HTN, HLD, DM, family hx of CAD, or current smoker): Yes Aspirin Use in the Past 7 Days: Yes Severe Angina (>/= episodes in 24 hours): No EKG ST Changes >/= 0.5mm: No Positive Cardiac Marker: Yes ANT Risk Stratification Score: 3 ANT % Risk: 13% Risk Objective Data Vital Signs: Vital Signs Temp Pulse Resp BP Pulse Ox 98.4 F 87 16 95/54 L 99 12/04/21 12:35 12/04/21 15:00 12/04/21 15:00 12/04/21 15:00 12/04/21 15:00 Oxygen Delivery Method Room Air Weight: 144 lb 2.917 oz Body Mass Index (BMI) 25.5 Lab / Micro Data Result Diagrams: 12/04/21 12:40 12/04/21 12:40 Labs: Laboratory Results - last 24 hr 12/04/21 12:40: WBC 7.8, RBC 5.11, Hgb 15.8 H, Hct 44.1, MCV 86.3, MCH 30.9, MCHC 35.8, RDW Std Deviation 40.3, RDW Coeff of Matt 12.9, Plt Count 248, MPV 10.7, Immature Gran % (Auto) 0.400, Neut % (Auto) 57.5, Lymph % (Auto) 34.8, Rooks % (Auto) 4.9, Eos % (Auto) 1.9, Baso % (Auto) 0.5, Absolute Neuts (auto) 4.5, Absolute Lymphs (auto) 2.71, Nucleated RBC % 0 12/04/21 12:40: Sodium 139, Potassium 3.7, Chloride 110 H, Carbon Dioxide 24.0, Anion Gap 5, BUN 16, Creatinine 0.74, Estim Creat Clear Calc 73.56, Est GFR (MDRD) Af Amer 106, Est GFR (MDRD) Non-Af 88, BUN/Creatinine Ratio 21.7 H, Glucose 114 H, Calcium 9.6, Troponin I High Sens 372 H* 12/04/21 12:40: PT 12.5, INR 1.0, APTT 33.4 12/04/21 14:40: Troponin I High Sens 382 H* Cardiology Labs/Tests 12/04/21 12:40: WBC 7.8, RBC 5.11, Hgb 15.8 H, Hct 44.1, MCV 86.3, MCH 30.9, MCHC 35.8, Plt Count 248, MPV 10.7, Immature Gran % (Auto) 0.400, Neut % (Auto) 57.5, Lymph % (Auto) 34.8, Rooks % (Auto) 4.9, Eos % (Auto) 1.9, Baso % (Auto) 0.5, Absolute Neuts (auto) 4.5, Nucleated RBC % 0 12/04/21 12:40: Sodium 139, Potassium 3.7, Chloride 110 H, Carbon Dioxide 24.0, Anion Gap 5, BUN 16, Creatinine 0.74, Est GFR (MDRD) Af Amer 106, Est GFR (MDRD) Non-Af 88, BUN/Creatinine Ratio 21.7 H, Glucose 114 H, Calcium 9.6 12/04/21 12:40: PT 12.5, INR 1.0, APTT 33.4 Rhythm: Normal sinus rhythm EKG: Normal sinus rhythm with nonspecific ST?T abnormalities
[2021-12-04 16:54] LABS: Magnesium 1.9 mg/dL (1.6-2.6)
[2021-12-04 20:43] LABS: Troponin-I HS 314 pg/mL (3.0-54.0)
[2021-12-04] MEDS: Metoprolol Tartrate 25 MG Tablet PO (21:18)
[2021-12-04] MEDS: Atorvastatin Calcium 80 MG Tablet PO (21:18)
[2021-12-04] MEDS: Temazepam 15 MG Capsule PO (21:21)
[2021-12-04 23:25] LABS: Partial Thromboplast Time 77.8 Seconds (24.1-36.2)
[2021-12-05] VITALS (12 sets, daily range): BP systolic 75–106; BP diastolic 52–68; PULSE 56–67; RESP 14–16; TEMP 36.6; O2SAT 99–100
--- NOTE | 2021-12-05 05:55 | EKG12_ITS ---
Test Reason : PRE OP Blood Pressure : / mmHG Vent. Rate : 054 BPM Atrial Rate : 054 BPM P-R Int : 158 ms QRS Dur : 078 ms QT Int : 468 ms P-R-T Axes : 058 065 086 degrees QTc Int : 443 ms Sinus bradycardia Septal infarct , age undetermined T wave abnormality, consider anterior ischemia Abnormal ECG When compared with ECG of 04-DEC-2021 12:47, MANUAL COMPARISON REQUIRED, DATA IS UNCONFIRMED Confirmed by IDALMIS LACY, ARIANNA ([id number]), assistant film editor PRASAD ROSEN ([id number]) on 12/06/2021 11:21:15 AM Referred By: TIMUR Confirmed By:ARIANNA RAYGOZA MD
--- NOTE | 2021-12-05 05:55 | ECHOD_ITS ---
Reason For Study: NSTEMI Procedure This was a 2D Doppler, Color Flow transthoracic echocardiogram. Exam performed portable in patient room. Left Ventricle The estimated ejection fraction is 50 %. No evidence for diastolic dysfunction. [place] : Hypokinetic. Right Ventricle Normal RV size. Normal systolic function. Atria Normal left atrium. Normal right atrium. No doppler evidence for ASD. Mitral Valve There is no mitral valve stenosis. Trivial mitral valve insufficiency. Tricuspid Valve There is no tricuspid stenosis. Trivial tricuspid valve insufficiency. Pulmonary artery systolic pressure is 25 mmHg. Aortic Valve Trisinus/trileaflet aortic valve. There is no aortic stenosis. No aortic valve insufficiency. Pulmonic Valve There is no pulmonic valvular stenosis. Trivial pulmonic valve insufficiency. Great Vessels Normal aortic root. Pericardium/Pleural No pericardial effusion. MMode/2D Measurements & Calculations LVIDd: 4.4 cm IVSd: 1.0 cm Ao root diam: 2.7 cm LVIDs: 2.7 cm LVPWd: 1.0 cm LA dimension: 3.3 cm RVDd: 3.3 cm FS: 37.4 % LAV(MOD-bp): 52.0 ml LA A4 area: 17.2 cm2 RA A4 area: 14.3 cm2 LAV(MOD-bp) Indexed: 31.0 ml/m2 LAV(MOD-sp2): 56.8 ml LAV(MOD-sp4): 45.4 ml Time Measurements MV dec time: 0.22 sec Doppler Measurements & Calculations MV E max dejan: 84.7 cm/sec Lat Peak E' Dejan: 10.4 cm/sec Med Peak E' Dejan: 5.9 cm/sec MV A max dejan: 73.9 cm/sec E/E' lat: 8.1 E/E' med: 14.4 MV E/A: 1.1 MV V2 max: 84.6 cm/sec MV P1/2t max dejan: 85.3 cm/sec Ao V2 max: 91.5 cm/sec MV max P.9 mmHg MV P1/2t: 108.8 msec Ao max P.3 mmHg MV V2 mean: 51.9 cm/sec MV dec slope: 229.7 cm/sec2 MV mean P.2 mmHg MVA(P1/2t): 2.0 cm2 MV V2 VTI: 29.4 cm LV V1 max: 86.0 cm/sec MR max dejan: 438.7 cm/sec PA V2 max: 78.0 cm/sec LV V1 max P.0 mmHg MR max P.0 mmHg PI end-d dejan: 60.7 cm/sec TR max dejan: 230.2 cm/sec TR max P.2 mmHg ECHO/Echo Complete Interpretation Summary The estimated ejection fraction is 50 %. No evidence for diastolic dysfunction. [place] : Hypokinetic. Trivial mitral valve insufficiency. Ordering Physician: Carmelina Irvin Referring Physician: Mk Drake Performed By: Howie Sheppard RCS
[2021-12-05 06:06] LABS: Partial Thromboplast Time 85.7 Seconds (24.1-36.2)
[2021-12-05] MEDS: Aspirin 81 MG TAB.CHEW PO (06:32)
[2021-12-05] MEDS: Metoprolol Tartrate 25 MG Tablet PO (06:33)
--- NOTE | 2021-12-05 09:54 | CASEMGMT ---
According to the [facility] website, the following are in-network tertiary facilities: [facility], [facility], [facility], [facility], [facility], [facility], [facility], [facility], [facility], and . Bro BERRY CM
--- NOTE | 2021-12-05 10:14 | CL.D_ITS ---
Patient Name: BRANT LANTIGUA Study Date: 12/05/2021 Performing: Ernestina Massey MD Ht: 62.99 inches 160 cm : 1970 Wt: 143.3 lbs 65 kg Age: 51 Gender: female BSA: 1.68 PROCEDURE(S) PERFORMED DC01-(46712)LHC/COR/LV CLINICAL PROFILE AND INDICATIONS Indications: ACS <= 24 hrs Heart Failure: None Stress/Imaging Stress/Image Study Performed: No CAD Presentations: Non-STEMI. Symptom onset Date/Time: Time Not Available CONCLUSIONS Non obstructive coronary arteries. Previous LAD stent is patent. LVEF is 45-50% with apical hypokines is. No significant or MR RECOMMENDATIONS DESCRIPTION OF PROCEDURE The patient arrived to the procedure lab. The risks and benefits of the procedure as well as a full d escription of our services here and current unavailability of surgical backup were fully explained to the patient and/or their significant other prior to the catheterization. The Timeout was completed, verifying the correct patient and procedure. The patient's procedural site was prepped and draped in the usual fashion. Local anesthetic was given subcutaneously to right radial region with Lidocaine 2% . Using a modified Seldinger technique, arterial access was obtained via the right radial artery, a 6 Fr sheath was inserted. Left Coronary Artery selective angiography was performed in multiple views u sing a 5 Fr. JL3.5 catheter. Left Ventriculography was performed in VÁSQUEZ projection using a 5 Fr. JR4. LV to AO pullback pressures were then recorded. Right Coronary Artery selective angiography was then performed in multiple views using a 5 Fr. JR 4 catheter.The arterial sheath was then flushed then pulled and a TR Band was applied for hemostasis w/ 10ml air CORONARY ANGIOGRAPHY DOMINANCE: Right Dominant LEFT HEART ASSESSMENT Left Ventricular Ejection Fraction: by LV Gram 45-50 % Apical Hypokinesis - Moderate LEFT MAIN: Mild calcification, Mild luminal irregularities LEFT ANTERIOR DESCENDING ARTERY: Mild luminal irregularities, Previously placed stent is patent CIRCUMFLEX ARTERY: Mild luminal irregularities RIGHT CORONARY ARTERY: MID RCA: 20-30 % Stenosis VALVE FINDINGS: No Aortic Valve Stenosis No Mitral Insufficency COMPLICATIONS No Complications PROCEDURE MEDICATIONS Versed 1 mg IV Fentanyl 50 mcg IV Oxygen: 2 L/min via nasal cannula Heparin given IA 12/05/2021 09:44:21 Plavix 75 mg PO 12/05/2021 09:04:55 Verapamil 2.5mg, Ntg 100mcgs, 3000 units of Heparin given IA 12/05/2021 09:44:21 SUMMARY OF HEMODYNAMIC DATA Time AIR REST ECG 09:02:52 AO 109/83 (95) SA 09:46:55 LV 98/-3, 6 09:52:10 LV 99/5, 8 09:52:18 LV 93/-12, 9 09:52:56 LV 95/0, 11 09:53:02 LVp 92/1, 12 09:53:14 LVp 98/1, 8 09:53:21 AOp 101/58 (76) 09:53:27 Signed By Ernestina Massey MD On 12/05/2021 10:13:05 Ernestina Massye MD
[2021-12-05] MEDS: 0.9% Normal Saline 1,000 ML 60 ML IV (10:20)
[2021-12-05] MEDS: Pantoprazole Sodium 20 MG Tablet PO (10:40)
[2021-12-05] MEDS: Citalopram 20 MG Tablet PO (10:40)
--- NOTE | 2021-12-05 11:15 | CASEMGMT ---
RN OLGA Face to Face with patient for initial transition planning/care coordination assessment. RN CM introduced self and role at [facility]. Patient lying in bed, alert and oriented, daughter at beside. Patient willing to participate in assessment and is able to answer all questions appropriately. Care providers, pharmacy, and demographics verified. Patient wishes to discharge home, denies need for home health at this time. Patient states she has no further needs or concerns at this time. CM to follow for discharge planning needs that may arise. PCP: [facility] Specialists: none Preferred Pharmacy: [facility] Insurance: [employer] Prescription Benefit: yes Living Will/HPOA: none, patient interested in completing, SW updated. Patient also given SW rack card LNOK: daughter Living Arrangements: Patient lives with daughter and ex in a 2 story home with patient staying on the first floor. 1 step to enter the home. Patient states she is independent at home. Transportation: self, daughter DME/HHC: Patient denies DME in the home. No previous HHC or SNF. Patient states she has cut back on her smoking from 1.5 ppd to 5-6 cigarettes today. Patient was provided with smoking cessation program at [facility]. Disposition Plan: Patient to discharge home with family support and follow-up plans in place. Vandana SINHA, RN, CM
--- NOTE | 2021-12-05 12:33 | DCINST_ITS ---
Discharge Instructions Diet Discharge Diet: Low fat / Low cholesterol Activity Discharge Activity: Return to Normal Activity Additional Activity Instructions:: Follow-up post cath instructions Dressing / Incision Call your doctor if your incision/area has: Continuous Slow Oozing, Sudden Increased Bleeding, Increased Pain/ Swelling, Increased Redness, Foul Smelling Discharge and Swelling at the incision site Call your doctor if you observe: Shortness of breath, Dizziness and Chest pain Follow Up Care Test Results: Test results from this visit will be discussed in further detail at your follow-up appointment, if applicable. Discharge Plan Admission Admit Date/Time: 12/04/21 15:32 Primary Reason for Your Visit: Palpitations Attending Provider: Sirisha Conroy Primary Care Provider: Mk Drake Consulting Providers: Karyn Perkins Discharge Orders/Prescriptions Prescriptions: New metoprolol succinate 25 mg tablet extended release 24 hr 25 mg PO DAILY Qty: 30 RF: 0 Continued clopidogrel 75 mg tablet 75 mg PO DAILY RF: 0 multivitamin Tablet 1 tab PO DAILY RF: 0 lisinopril 2.5 mg tablet 2.5 mg PO DAILY Qty: 60 RF: 11 atorvastatin 80 mg tablet 80 mg PO DAILY Qty: 30 RF: 11 aspirin 81 mg capsule 81 mg PO DAILY Qty: 30 RF: 11 omeprazole 20 mg capsule,delayed release(DR/EC) 20 mg PO BREAKFAST Qty: 30 RF: 3 citalopram 20 mg tablet 20 mg PO DAILY Qty: 30 RF: 1 Discontinued metoprolol tartrate 25 mg tablet 25 mg PO BID Qty: 60 RF: 11 Referrals / Follow Up: Randall Forrest MD [STAFF PHYSICIAN] - Within 2 Weeks (F/U with [facility]. Established with cardiology during admission. ) Mk Drake MD [Primary Care Provider] - In 1 Week Disposition Disposition (needs filled in before D/C Order can be placed): Home, Self Care
--- NOTE | 2021-12-05 12:37 | PCM.DC.SUM ---
Documented by User: Carmelina Irvin NP, RETAIL WIRE[employer]ESS SALES CONSULTANT-C 12/05/21 12:45 Providers Date of Admission: 12/04/21 Date of Discharge: 12/05/21 Primary Care Physician: Dr. Mk Drake MD Consultations 12/04/21 18:01 Consult: Cardiology Routine Consulting Provider: Karyn Perkins Reason for Consult: NSTEMI EMERGENT Consult: No MD Notified: Yes Date Notified: 12/04/21 Time Notified: 15:38 Method of Notification: Verbal Method of Consult:: In-Person Reason For Visit: NONSTEMI Diagnosis Discharge Diagnosis (1) Tobacco abuse: Status: Acute Code(s): Z72.0 - Tobacco use (2) Nonsustained paroxysmal ventricular tachycardia: Status: Acute Code(s): I47.2 - Ventricular tachycardia (3) Atherosclerotic heart disease of [place] coronary artery without angina pectoris: Status: Acute Code(s): I25.10 - Atherosclerotic heart disease of [place] coronary artery without angina pectoris (4) History of coronary artery stent placement: Status: Acute Code(s): Z95.5 - Presence of coronary angioplasty implant and graft (5) Essential hypertension: Status: Chronic Code(s): I10 - Essential (primary) hypertension (6) Non-ST elevated myocardial infarction (non-STEMI): Status: Acute Code(s): I21.4 - Non-ST elevation (NSTEMI) myocardial infarction Medications at Discharge Home Medications aspirin 81 mg capsule 81 mg PO DAILY #30 cap 09/07/21 atorvastatin 80 mg tablet 80 mg PO DAILY #30 tab 09/07/21 lisinopril 2.5 mg tablet 2.5 mg PO DAILY #60 tab 09/07/21 omeprazole 20 mg capsule,delayed release 20 mg PO BREAKFAST #30 cap 11/14/21 citalopram 20 mg tablet 20 mg PO DAILY #30 tab 12/02/21 clopidogrel 75 mg PO DAILY 12/04/21 multivitamin 1 tab PO DAILY 12/04/21 metoprolol succinate 25 mg PO DAILY #30 tab 12/05/21 Hospital Course Operations None Procedures 2-D Echocardiogram and Cardiac catheterization Summary of Care Provided Hospital Course: Patient is a 51-year-old female admitted 12/04/2021 due to palpitations. 1. NSTEMI-troponin did not trend upward significantly, 372, 382, 314. EKG without acute ST-T changes. Cardiology consulted. Patient underwent heart cath which demonstrated patent LAD stent. LVEF 45 to 50% with apical hypokinesis. Mild luminal irregularities. Mid RCA 20 to 30% stenosis. Continue medical management with aspirin, Plavix, statin, metoprolol. Follow-up with cardiology as outpatient. 2. Palpitations/paroxysmal nonsustained V. tach-recent 48-hour Holter monitor with 106 beats of ventricular bigeminy, 1 wide-complex ventricular run totaling 9 beats. Mag, TSH normal. Patient states she does not take her evening dose of metoprolol as she forgets. Transitioned to metoprolol succinate, once daily dosing. Follow-up with cardiology within 2 weeks. No arrhythmias on telemetry during admission. 3. CAD with history of stent-on aspirin, Plavix, statin, lisinopril, metoprolol. 4. Hypertension-stable, continue lisinopril, metoprolol. 5. Hyperlipidemia-continue statin. 6. Depression/anxiety-on citalopram. 7. GERD-continue PPI. 8. Tobacco dependence- encouraged cessation. Physical Exam Const alert, oriented x3 and no apparent distress Orientation / Consciousness: awake, oriented to person, oriented to place and oriented to time HEENT normocephalic and moist oral mucous membranes Eyes PERRL, EOMs intact bilaterally and conjunctivae normal Neck no lymphadenopathy Resp normal respiratory effort and clear to auscultation bilaterally Cardio regular rate, regular rhythm and no murmurs Peripheral Pulses: pulses 2+ throughout GI normal to inspection, nondistended, normoactive bowel sounds, non-tender and non-distended Extremity normal to inspection Skin no rashes or lesions noted Lesions: no lesions Rashes: no rashes Trauma: no lacerations or abrasions Neuro CN's II-XII intact bilaterally, no focal motor deficits, no sensory deficits noted and deep tendon reflexes 2+ bilaterally Psych mental status grossly normal Mood & Affect: Appropriate Patient seen and examined prior to discharge. Physical assessment as noted above. Patient is stable for discharge with follow up recommendations as noted above. This patient was seen by GLENYS Olivia under the supervision of Dr. Conroy. Time spent examining patient, reviewing data and subsequent management of care: 16 Minutes Weight / BMI Weight Weight: 143 lb 8.335 oz Body Mass Index (BMI) 25.4 ABG / Lab / Microbiology Data Result Diagrams: 12/04/21 12:40 12/04/21 12:40 Laboratory: Laboratory Results - last 24 hr 12/04/21 12:40: WBC 7.8, RBC 5.11, Hgb 15.8 H, Hct 44.1, MCV 86.3, MCH 30.9, MCHC 35.8, RDW Std Deviation 40.3, RDW Coeff of Matt 12.9, Plt Count 248, MPV 10.7, Immature Gran % (Auto) 0.400, Neut % (Auto) 57.5, Lymph % (Auto) 34.8, [place] % (Auto) 4.9, Eos % (Auto) 1.9, Baso % (Auto) 0.5, Absolute Neuts (auto) 4.5, Absolute Lymphs (auto) 2.71, Nucleated RBC % 0 12/04/21 12:40: Sodium 139, Potassium 3.7, Chloride 110 H, Carbon Dioxide 24.0, Anion Gap 5, BUN 16, Creatinine 0.74, Estim Creat Clear Calc 73.56, Est GFR (MDRD) Af Amer 106, Est GFR (MDRD) Non-Af 88, BUN/Creatinine Ratio 21.7 H, Glucose 114 H, Calcium 9.6, Troponin I High Sens 372 H* 12/04/21 12:40: PT 12.5, INR 1.0, APTT 33.4 12/04/21 13:44: Magnesium 1.9 12/04/21 14:40: Troponin I High Sens 382 H* 12/04/21 18:59: Troponin I High Sens 314 H* 12/04/21 23:04: APTT 77.8 H 12/05/21 05:30: APTT 85.7 H Radiography Diagnostic Testing: Radiology Impression Chest X-Ray 12/04/21 16:30 IMPRESSION: No acute cardiopulmonary process. Electronically Signed: Huy Pearson MD at 17:16 EDT , D/C Instructions Discharge Diet: Low fat / Low cholesterol Additional Activity Instructions: Follow-up post cath instructions Call your doctor if your incision/area has: Continuous Slow Oozing, Sudden Increased Bleeding, Increased Pain/ Swelling, Increased Redness, Foul Smelling Discharge and Swelling at the incision site Call your doctor if you observe: Shortness of breath, Dizziness and Chest pain Meaningful Use Info Meaningful Use Diagnoses (Choose all that apply): AMI AMI/Post PCI/Angioplasty Aspirin given w/in 24hrs of arrival?: Yes ASA at discharge?: Yes Statins at discharge?: Yes Aaron/ARB at discharge?: Yes Beta Steven at discharge?: Yes Done w/ Acute MD measure.: Yes Discharge Plan Admission Admit Date/Time: 12/04/21 15:32 Primary Reason for Your Visit: Palpitations Attending Provider: Sirisha Conroy Primary Care Provider: Mk Drake Consulting Providers: Karyn Perkins Discharge Orders/Prescriptions Prescriptions: New metoprolol succinate 25 mg tablet extended release 24 hr 25 mg PO DAILY Qty: 30 RF: 0 Continued clopidogrel 75 mg tablet 75 mg PO DAILY RF: 0 multivitamin Tablet 1 tab PO DAILY RF: 0 lisinopril 2.5 mg tablet 2.5 mg PO DAILY Qty: 60 RF: 11 atorvastatin 80 mg tablet 80 mg PO DAILY Qty: 30 RF: 11 aspirin 81 mg capsule 81 mg PO DAILY Qty: 30 RF: 11 omeprazole 20 mg capsule,delayed release(DR/EC) 20 mg PO BREAKFAST Qty: 30 RF: 3 citalopram 20 mg tablet 20 mg PO DAILY Qty: 30 RF: 1 Discontinued metoprolol tartrate 25 mg tablet 25 mg PO BID Qty: 60 RF: 11 Referrals / Follow Up: Mk Drake MD [Primary Care Provider] - 12/07/21 1:15 pm Kan Darling NP, [employer] CONSULTANT-C [Nurse Practitioner] - 12/19/21 8:30 am Disposition Disposition (needs filled in before D/C Order can be placed): Home, Self Care Documented by User: Dr. Sirisha Conroy MD 12/05/21 17:17 Providers Date of Admission: 12/04/21 Reason For Visit: NONSTEMI Medications at Discharge Home Medications aspirin 81 mg capsule 81 mg PO DAILY #30 cap 09/07/21 atorvastatin 80 mg tablet 80 mg PO DAILY #30 tab 09/07/21 lisinopril 2.5 mg tablet 2.5 mg PO DAILY #60 tab 09/07/21 omeprazole 20 mg capsule,delayed release 20 mg PO BREAKFAST #30 cap 11/14/21 citalopram 20 mg tablet 20 mg PO DAILY #30 tab 12/02/21 clopidogrel 75 mg PO DAILY 12/04/21 multivitamin 1 tab PO DAILY 12/04/21 metoprolol succinate 25 mg PO DAILY #30 tab 12/05/21 ABG / Lab / Microbiology Data Result Diagrams: 12/04/21 12:40 12/04/21 12:40 Discharge Plan Admission Admit Date/Time: 12/04/21 15:32 Primary Reason for Your Visit: Palpitations Attending Provider: Sirisha Conory Primary Care Provider: Mk Drake Consulting Providers: Karyn Perkins Discharge Orders/Prescriptions Prescriptions: New metoprolol succinate 25 mg tablet extended release 24 hr 25 mg PO DAILY Qty: 30 RF: 0 Continued clopidogrel 75 mg tablet 75 mg PO DAILY RF: 0 multivitamin Tablet 1 tab PO DAILY RF: 0 lisinopril 2.5 mg tablet 2.5 mg PO DAILY Qty: 60 RF: 11 atorvastatin 80 mg tablet 80 mg PO DAILY Qty: 30 RF: 11 aspirin 81 mg capsule 81 mg PO DAILY Qty: 30 RF: 11 omeprazole 20 mg capsule,delayed release(DR/EC) 20 mg PO BREAKFAST Qty: 30 RF: 3 citalopram 20 mg tablet 20 mg PO DAILY Qty: 30 RF: 1 Discontinued metoprolol tartrate 25 mg tablet 25 mg PO BID Qty: 60 RF: 11 Referrals / Follow Up: Mk Drake MD [Primary Care Provider] - 12/07/21 1:15 pm Kan Darling NP, [employer] SAL[employer] CONSULTANT-C [Nurse Practitioner] - 12/19/21 8:30 am Disposition Disposition (needs filled in before D/C Order can be placed): Home, Self Care Charges/Coding Addendum Addendum: This patient was seen in conjunction with Jamie Rock NP. I have independently interviewed and examined the patient and reviewed pertinent historical, laboratory, and other data. I have reviewed her note and concur with her documentation 51-year-old with past medical history of CAD s/p stent, hypertension, hyperlipidemia, nicotine dependence who comes in with palpitations. Patient's admitting EKG had no acute ST change. Her troponins were 372, 322, 314. Cardiology was consulted. Patient underwent cardiac cath on 12/05/21. She was medically managed with aspirin, Plavix, statin, beta-steven. Patient was seen and examined the day of discharge, denied any new complaints. Physical Exam: Gen: Comfortable, not pale, not jaundiced CVS:HS I +II, regular, no murmurs RESP: Diminished at lung bases GI: BS present and normal, soft, nontender, no palpable organs EXT:No edema Visit Charges Inpatient E&M: 70909 Disch Hosp
--- NOTE | 2021-12-05 13:05 | CM.ED ---
RAFI Note: Referral Source: PCU SW Referral Reason: Advanced Directives SW met with patient and reviewed advanced directive. Patient selected her son, Ramon as the person to make decisions. She declined to list any of her other children. Patient signed HCPOA and Living Will. Copy made for chart, copy for patient's son and original given back to patient. Brandie COPE
--- NOTE | 2021-12-05 14:18 | CHAPLAIN ---
Type of Pastoral Visit _x__ Initial Visit ___ Follow-up Visit ___ On-call Visit ___ General Patient Visit ___ Spiritual Assessment ___ Family Conference ___ Bereavement ___ Rapid Response ___ Code Blue ___ Other (describe below) Pastoral Care Referral From _x__ Patient ___ Family ___ Nurse ___ Physician ___ Crutching Contractor ___ Facsimile Machine Operator ___ Other (describe below) Sacrament/Intervention _x__ Active listening ___ Anointing ___ Confucianism ___ Bereavement ___ Communion ___ Edie exploration ___ ___ Life review _x__ Prayer ___ Reconciliation ___ Sacrament of Sick _x__ Supportive presence ___ Wedding ___ Other (describe below) Pastoral Comments patient requests prayer; pt said there are many other needs but God knows what those are, just say a prayer; daughter is in the room but does not interact with pt or this drafter chief design and just focuses on her phone; pt says that she has been a heart patient for last ten years and just getting worse with age
== END 2021-12-05 14:41 | disposition home or self-care (01) | DRG 174 ==
LOC: ED 15:24 → PCU 17:03
PROVIDERS: Nurse Practitioner Family; Admitting Provider Internal Medicine; Emergency Provider Emergency Medicine; PCP Internal Medicine; Visit Provider Internal Medicine
DX: I21.4 Non-ST elevation (NSTEMI) myocardial infarction (principal); I47.2 Ventricular tachycardia; E78.5 Hyperlipidemia, unspecified; I25.10 Atherosclerotic heart disease of native coronary artery without angina pectoris; K21.9 Gastro-esophageal reflux disease without esophagitis; I10 Essential (primary) hypertension; I25.2 Old myocardial infarction; F17.210 Nicotine dependence, cigarettes, uncomplicated; F41.9 Anxiety disorder, unspecified; Z79.02 Long term (current) use of antithrombotics/antiplatelets; Z79.82 Long term (current) use of aspirin; Z79.01 Long term (current) use of anticoagulants; Z80.0 Family history of malignant neoplasm of digestive organs; F32.A Depression, unspecified; Z95.5 Presence of coronary angioplasty implant and graft
CPT/HCPCS: 36415; 71045; 80048; 83735; 84484; 85025; 85610; 85730; 93005; 93306; 93458; 99152; 99153; 99285; 99406; J7030; J7040; 90686; A4216; C1769; C1894; J2405; Q9967

== ENCOUNTER 2021-12-19 16:00 | Outpatient (CLI) | payer MEDICAID, SELFPAY ==
[2021-12-19 16:34] LABS: Absolute Lymphocyte Count 3.31 X10^3/uL (0.83-4.51); Absolute Neutrophil Count 4.8 X10^3/uL (2.0-7.7); Basophil# 0.05 X10^3/uL; Basophil% 0.6 % (0-1); Eosinophil# 0.13 X10^3/uL; Eosinophils% 1.5 % (0-5); Hematocrit 43.1 % (37-47); Hemoglobin 14.6 g/dL (12.0-15.0); Lymphocyte # 3.31 X10^3/ul (0.83-4.51); Lymphocyte % 37.5 % (19-41); Mean Corp Hgb Conc 33.9 g/dL (32-36); Mean Corpuscular Volume 88.5 fL (81-99); Mean Platelet Vol. 9.8 fl (6.2-12.0); Monocyte% 5.7 % (0-10); NRBC Flagged by Analyzer 0 % (0-5); Neutrophil # 4.81 X10^3/uL (2.7-7.7); Neutrophil % 54.5 % (47-70); Platelet Count 272 K/mm3 (150-450); RBC Distribution Width CV 13.1 % (11.6-14.6); RBC Distribution Width SD 42.5 fl (35.1-43.9); Red Blood Count 4.87 M/mm3 (4.2-5.4); White Blood Count 8.8 K/mm3 (4.4-11.0)
[2021-12-19 18:10] LABS: ALB/GLOB Ratio 0.9 RATIO (0.9-2.4); AST(SGOT) 34 U/L (15-37); Alanine Aminotransfer ALT/SGPT 54 U/L (13-56); Alkaline Phosphatase 89 U/L (45-117); Anion Gap 6 (5-15); BUN 17 mg/dL (7-18); BUN/Creat Ratio 22.6 RATIO (10-20); Calcium,Total 9.5 mg/dL (8.5-10.1); Chloride 110 mmol/L (98-107); Creatinine, Serum 0.75 mg/dL (0.55-1.02); EST Glomerular Filtration Rate 86 mL/min (>60); Est Glom Filt Rate - Afr Amer 104 mL/min (>60); Globulin 4.4 g/dL (2.2-4.2); Glucose 116 mg/dL (74-106); Potassium 3.6 mmol/L (3.5-5.1); Protein, Total 8.4 g/dL (6.4-8.2); Sodium Level 140 mmol/L (136-145); Troponin-I HS 292 pg/mL (3.0-54.0)
== END 2021-12-19 23:59 | disposition home or self-care (01) ==
LOC: BIMLAB 16:01
PROVIDERS: PCP Internal Medicine; Visit Provider Internal Medicine
DX: R53.81 Other malaise (principal); R53.83 Other fatigue; R74.8 Abnormal levels of other serum enzymes; Z98.890 Other specified postprocedural states
CPT/HCPCS: 36415; 80053; 84484; 85025

== ENCOUNTER → 2022-03-27 | Outpatient (CLI) | payer MEDICAID, SELFPAY ==
[2022-03-27 12:07] LABS: Absolute Lymphocyte Count 2.95 X10^3/uL (0.83-4.51); Absolute Neutrophil Count 4.2 X10^3/uL (2.0-7.7); Basophil# 0.06 X10^3/uL; Basophil% 0.8 % (0-1); Eosinophil# 0.13 X10^3/uL; Eosinophils% 1.7 % (0-5); Hematocrit 39.9 % (37-47); Hemoglobin 13.3 g/dL (12.0-15.0); Lymphocyte # 2.95 X10^3/ul (0.83-4.51); Lymphocyte % 38.4 % (19-41); Mean Corp Hgb Conc 33.3 g/dL (32-36); Mean Corpuscular Hgb 30.7 pg (27.0-32.0); Mean Corpuscular Volume 92.1 fL (81-99); Monocyte# 0.35 X10^3/uL; Monocyte% 4.6 % (0-10); NRBC Flagged by Analyzer 0 % (0-5); Neutrophil # 4.18 X10^3/uL (2.7-7.7); Neutrophil % 54.2 % (47-70); Platelet Count 298 K/mm3 (150-450); RBC Distribution Width CV 12.8 % (11.6-14.6); RBC Distribution Width SD 43.3 fl (35.1-43.9); Red Blood Count 4.33 M/mm3 (4.2-5.4); White Blood Count 7.7 K/mm3 (4.4-11.0)
[2022-03-27 12:42] LABS: BNP,B-Type NATRIURETIC PEPTIDE 51.5 pg/mL (0-100)
[2022-03-27 12:45] LABS: Anion Gap 7 (5-15); BUN 8 mg/dL (7-18); BUN/Creat Ratio 13.2 RATIO (10-20); Calcium,Total 9.1 mg/dL (8.5-10.1); Chloride 108 mmol/L (98-107); EST Glomerular Filtration Rate 110 mL/min (>60); Est Glom Filt Rate - Afr Amer 133 mL/min (>60); Glucose 97 mg/dL (74-106); Potassium 3.7 mmol/L (3.5-5.1); Sodium Level 142 mmol/L (136-145)
== END | disposition home or self-care (01) ==
PROVIDERS: PCP Internal Medicine; Visit Provider Nurse Practitioner Gerontology
DX: R06.00 Dyspnea, unspecified (principal)
CPT/HCPCS: 36415; 80048; 83880; 85025

== ENCOUNTER 2022-04-28 12:43 | Emergency (ER) | payer MEDICAID, SELFPAY ==
[2022-04-28 12:43] VITALS: BP 100/85; PULSE 98; RESP 18; TEMP 36.4; O2SAT 100; BMI 22.3
--- NOTE | 2022-04-28 13:08 | EDS_ITS ---
HPI History of Present Illness Chief Complaint: Lower Extremity Injury Narrative Narrative: Patient with past medical history of coronary artery disease presents with injury to her left ankle. She states that just prior to arrival she was walking [place] the court [place] stairs and injured her left ankle. She states she fell but caught herself. She did not hit her head, there was no loss of consciousness. She heard a snap and a pop as her left foot went up from under she now has pa in and swelling on the lateral aspect of her left ankle. Pain is worse with weightbearing. She was unable to take a few steps at the site of her injury. [facility] Medical History Anemia Anxiety and depression Atherosclerotic heart disease of [place] coronary artery without angina pectoris Cardiac enzymes elevated Cervical cancer Essential hypertension GERD (gastroesophageal reflux disease) HLD (hyperlipidemia) Malaise and fatigue Nonsustained paroxysmal ventricular tachycardia Seasonal allergies STEMI (ST elevation myocardial infarction) Tobacco abuse Home Medications aspirin 81 mg capsule 81 mg PO DAILY #30 caps 09/07/21 [Rx Last Taken 12/03/21 10:00] atorvastatin 80 mg tablet 80 mg PO DAILY cholesterol #30 tabs 09/07/21 [Rx Last Taken 12/03/21 10:00] lisinopril 2.5 mg tablet 2.5 mg PO DAILY #60 tabs 09/07/21 [Rx Last Taken 12/03/21 10:00] multivitamin 1 tab PO DAILY supplement 12/04/21 [History Last Taken 12/03/21 10:00] hydroxyzine HCl 25 mg tablet 25 mg PO BID PRN anxiety #60 tabs 12/07/21 [Rx Last Taken Unknown] omeprazole 20 mg capsule,delayed release 20 mg PO BREAKFAST heartburn #30 caps 12/08/21 [Rx Last Taken Unknown] nitroglycerin 0.4 mg sublingual tablet 0.4 mg sublingual Q5-15M PRN chest pain #25 tabs 12/28/21 [Rx Last Taken Unknown] ticagrelor 90 mg tablet (Brilinta) 90 mg PO BID 12/28/21 [History Last Taken Unknown] metoprolol succinate 25 mg tablet,extended release 24 hr 25 mg PO DAILY #90 tabs 01/11/22 [Rx Last Taken Unknown] venlafaxine 75 mg tablet 75 mg PO DAILY #90 tabs 02/07/22 [Rx Last Taken Unknown] Allergy/AdvReac Type Severity Reaction Status Date / Time albuterol Allergy Mild unknown Verified 04/28/22 12:45 penicillin V Allergy Mild unkonwn Verified 04/28/22 12:45 amoxicillin Allergy Hives Verified 04/28/22 12:45 Family History Other Alcoholism Anemia Anxiety Arthritis CVA (cerebral vascular accident) Cancer Cervical cancer Colon cancer DVT (deep venous thrombosis) Depression Diabetes Heart disease High cholesterol Hypertension Myocardial infarction Ovarian cancer Thyroid disorder Surgical History History of coronary artery stent placement (08/08/21) History of hysterectomy History of intravascular stent placement History of left heart catheterization (12/05/21) Social History Smoking Status: Current every day smoker tobacco type: cigarettes Tobacco: How many years used: 30 alcohol intake: never substance use type: former substance user and marijuana what type of physical activity do you participate in: none ROS ROS ED ROS Narrative Constitutional: No fever, no chills. HEENT: No sore throat. No neck pain. No loss of vision. No rhinorrhea. Cardiovascular: No chest pain. No palpitations. No pedal edema. Respiratory: No cough, no shortness of breath. Abdominal: No abdominal pain. No nausea. No vomiting. Genitourinary: No dysuria. No hematuria. Musculoskeletal: No myalgias. Left lateral ankle injury/pain and swelling. Neurologic: No headaches. No dizziness. No lightheadedness. Skin: No rash. No change in color. Psychiatric: No depression. No anxiety. EXAM Physical Exam Narrative Exam Narrative: Afebrile. Vital signs noted. HEENT: Normocephalic. Atraumatic. PERRL, EOMI. Neck soft and supple. No point tenderness or step off. Cardiovascular: Regular rate and rhythm. No murmurs, rubs, or gallops appreciated. Respiratory: No tachypnea. Lungs clear to auscultation bilaterally. Gastrointestinal: Abdomen soft, nontender, with normoactive bowel sounds. No rebound or guarding. Neurological: Awake. Alert. Nonfocal, nonlateralizing. Skin: No rash. Normal color. No pallor. Musculoskeletal: No pedal edema. Limited range of left ankle secondary to pain. Positive tenderness to palpation left malleolus, lateral, and talofibular ligament area. No palpable Achilles tendon deficit. Negative Soriano sign. Palpable dorsalis pedis pulse. No proximal fibular head tenderness. Able to flex and extend left knee. Const Vital Signs: 04/28/22 12:43 Temperature 97.6 F L Temperature Source Temporal Pulse Rate 98 Respiratory Rate 18 Blood Pressure 100/85 H Blood Pressure Mean 90 Pulse Ox 100 Oxygen Delivery Method Room Air MDM MDM MDM Narrative Medical decision making narrative: Patient had been given an ice pack. She requested Tylenol for analgesia as she states she does not take NSAIDs. X-rays were obtained of the left ankle and interpreted by myself. My interpretation of her x-ray of the ankle shows no evidence of fracture. There is soft tissue swelling. She will be placed in an Aircast and given crutches with teaching. She will continue ice and elevation at home and follow-up with her primary care physician. Return instructions to the emergency department were reviewed. Disposition is discharged home in stable condition. Radiography Diagnostic Testing: Clinical Impression(s) from Imaging Studies Ankle X-Ray 04/28/22 13:15 IMPRESSION: Soft tissue swelling overlying the lateral malleolus. Electronically Signed: Khris Allen MD at 13:25 EDT , Discharge Plan Triage Chief Complaint: Lower Extremity Injury ED Provider: Napoleon Mendoza Dx/Rx/DC Orders Clinical Impression: Left ankle sprain, Fall Instructions: ED Ankle Sprain (Adult) Prescriptions: No Action hydroxyzine HCl 25 mg tablet 25 mg PO BID PRN (Reason: anxiety) Qty: 60 2RF Brilinta 90 mg tablet 90 mg PO BID nitroglycerin 0.4 mg tablet, sublingual 0.4 mg sublingual Q5-15M PRN (Reason: chest pain) Qty: 25 3RF Rx Instructions: do not exceed 3 doses per episode multivitamin Tablet 1 tab PO DAILY lisinopril 2.5 mg tablet 2.5 mg PO DAILY Qty: 60 11RF atorvastatin 80 mg tablet 80 mg PO DAILY Qty: 30 11RF aspirin 81 mg capsule 81 mg PO DAILY Qty: 30 11RF omeprazole 20 mg capsule,delayed release(DR/EC) 20 mg PO BREAKFAST Qty: 30 11RF metoprolol succinate 25 mg tablet extended release 24 hr 25 mg PO DAILY Qty: 90 0RF venlafaxine 75 mg tablet 75 mg PO DAILY Qty: 90 0RF Primary Care Provider: Mk Drake Referrals: Mk Drake MD [Primary Care Provider] - 1 Week Disposition Disposition: Home, Self Care
--- NOTE | 2022-04-28 13:15 | RAD_ITS ---
STUDY: X-RAY - LEFT ANKLE REASON FOR EXAM: Female, 51 years old. Trauma, Pain TECHNIQUE: 3 view(s) of the ankle. COMPARISON: None. FINDINGS: Normal visualized distal tibia and fibula. Normal medial and lateral malleoli. Normal tibiotalar articulation and ankle mortise. Normal visualized talus and calcaneus. The visualized subtalar, talonavicular, calcaneocuboid and tarsal articulations are normal. Soft tissue swelling overlying the lateral malleolus. RAD/Ankle min 3 Views IMPRESSION: Soft tissue swelling overlying the lateral malleolus. Electronically Signed: Khris Allen MD at 13:25 EDT ,
[2022-04-28] MEDS: Acetaminophen 500 MG Tablet 1000 MG PO (13:21)
== END 2022-04-28 14:03 | disposition home or self-care (01) ==
PROVIDERS: Emergency Provider Emergency Medicine; PCP Internal Medicine; Visit Provider Emergency Medicine
DX: S99.912A Unspecified injury of left ankle, initial encounter (principal); I25.10 Atherosclerotic heart disease of native coronary artery without angina pectoris; E78.5 Hyperlipidemia, unspecified; M79.672 Pain in left foot; I10 Essential (primary) hypertension; F17.210 Nicotine dependence, cigarettes, uncomplicated; I25.2 Old myocardial infarction; W10.9XXA Fall (on) (from) unspecified stairs and steps, initial encounter; Y92.240 Courthouse as the place of occurrence of the external cause; Z95.5 Presence of coronary angioplasty implant and graft
CPT/HCPCS: 73610; 99282

== ENCOUNTER → 2022-07-07 | Outpatient (CLI) | payer MEDICAID, SELFPAY ==
[2022-07-07 13:01] LABS: AST(SGOT) 24 U/L (15-37); Alanine Aminotransfer ALT/SGPT 27 U/L (13-56); Albumin, Serum 4.1 g/dL (3.2-5.0); Alkaline Phosphatase 100 U/L (45-117); Bilirubin, Direct 0.12 mg/dL (0.00-0.30); Cholesterol 135 mg/dL (200); Globulin 4.5 g/dL (2.2-4.2); High Density Lipoprotein 46 mg/dL; Protein, Total 8.6 g/dL (6.4-8.2); Triglycerides 100 mg/dL; Very Low Density Lipoprotein 20 mg/dL (5-40)
== END | disposition home or self-care (01) ==
LOC: LAB 11:45
PROVIDERS: PCP Internal Medicine; Referring Provider Nurse Practitioner Gerontology; Visit Provider Nurse Practitioner Gerontology
DX: E78.5 Hyperlipidemia, unspecified (principal)
CPT/HCPCS: 36415; 80061; 80076

== ENCOUNTER 2022-09-28 14:37 | Emergency (ER) | payer MEDICAID, SELFPAY ==
[2022-09-28 14:38] VITALS: BP 131/109; PULSE 103; RESP 16; TEMP 37; O2SAT 97; BMI 19.7
--- NOTE | 2022-09-28 15:05 | EX.ED.VIS.PS ---
HPI HPI - Psych History of Present Illness Chief Complaint: Mental Health Detail of Chief Complaint: Depression and anxiety Informant: patient Narrative Narrative: Patient presents the emergency department complaint depression and feeling anxious. Patient states that she is not been feeling right in her head for the last month. Patient having thoughts of cutting her self to relieve stress but not to end her life. Patient states that she has grandbabies that she wants to live for. She denies auditory visual hallucinations. Patient tells me she has not slept in 3 days. Patient tells me that she has not eaten in 4 days. Patient went to 180 today and was referred to the ER. She does not see a psychiatrist although I think she had an intake appointment in 4 days. Patient takes Lexapro. [facility] Medical History (Updated 09/28/22 @ 16:[address] Roosevelt Huffman, ) Anemia Anxiety and depression Atherosclerotic heart disease of [place] coronary artery without angina pectoris Cardiac enzymes elevated Cervical cancer Colon cancer screening Essential hypertension GERD (gastroesophageal reflux disease) Health care maintenance HLD (hyperlipidemia) Left ankle pain Malaise and fatigue Nonsustained paroxysmal ventricular tachycardia Seasonal allergies STEMI (ST elevation myocardial infarction) Tobacco abuse Home Medications aspirin 81 mg capsule 81 mg PO DAILY #30 caps 09/07/21 [Rx Last Taken 12/03/21 10:00] atorvastatin 80 mg tablet 80 mg PO DAILY cholesterol #30 tabs 09/07/21 [Rx Last Taken 12/03/21 10:00] lisinopril 2.5 mg tablet 2.5 mg PO DAILY #60 tabs 09/07/21 [Rx Last Taken 12/03/21 10:00] multivitamin 1 tab PO DAILY supplement 12/04/21 [History Last Taken 12/03/21 10:00] nitroglycerin 0.4 mg sublingual tablet 0.4 mg sublingual Q5-15M PRN chest pain #25 tabs 12/28/21 [Rx Last Taken Unknown] metoprolol succinate 25 mg tablet,extended release 24 hr 25 mg PO DAILY #90 tabs 01/11/22 [Rx Last Taken Unknown] omeprazole 20 mg capsule,delayed release 20 mg PO BREAKFAST heartburn #90 caps 07/07/22 [Rx Last Taken Unknown] clopidogrel 75 mg tablet (Plavix) 75 mg PO DAILY #90 tabs 08/18/22 [Rx Last Taken Unknown] escitalopram oxalate 5 mg tablet (Lexapro) 5 mg PO DAILY #30 tabs 09/06/22 [Rx Last Taken Unknown] nitrofurantoin monohydrate/macrocrystals 100 mg capsule 100 mg PO BID 09/28/22 [History Last Taken Unknown] Allergy/AdvReac Type Severity Reaction Status Date / Time albuterol Allergy Mild unknown Verified 09/28/22 14:42 penicillin V Allergy Mild unkonwn Verified 09/28/22 14:42 amoxicillin Allergy Hives Verified 09/28/22 14:42 Family History Other Alcoholism Anemia Anxiety Arthritis CVA (cerebral vascular accident) Cancer Cervical cancer Colon cancer DVT (deep venous thrombosis) Depression Diabetes Heart disease High cholesterol Hypertension Myocardial infarction Ovarian cancer Thyroid disorder Surgical History History of coronary artery stent placement (08/08/21) History of hysterectomy History of intravascular stent placement History of left heart catheterization (12/05/21) Social History Smoking Status: Current every day smoker tobacco type: cigarettes Tobacco: How many years used: 30 alcohol intake: never substance use type: former substance user and marijuana what type of physical activity do you participate in: none ROS ROS ED Review of Systems ROS Unobtainable: other Constitutional Constitutional ED: Reports lethargy; Denies chills, fever(s), sweats or weight loss Eyes Eyes: Denies blurry vision, change in vision or diplopia ENT ENT ED: Denies rhinorrhea or sore throat Cardiovascular Cardiovascular: Denies chest pain, orthopnea or racing heartbeat Respiratory/Chest Respiratory/Chest: Denies cough, dyspnea, dyspnea on exertion, orthopnea or sputum Gastrointestinal Gastrointestinal: Denies abdominal pain, diarrhea, nausea or vomiting Genitourinary Genitourinary ED: Denies dysuria, hematuria or urinary frequency Musculoskeletal Musculoskeletal: Denies arthralgias, back pain, myalgias or neck pain Integumentary Denies abscess, Abrasions or rash Neurologic Neurologic: Denies headache(s) or weakness Psychiatric Psychiatric: Reports other Details: Anxiety, thoughts of cutting self ; Denies anxiety, depression or suicidal thoughts Endocrine Endocrinology: Denies polydipsia, polyphagia or polyuria Hematologic/Lymphatic Hematologic/Lymphatic: Denies easy bleeding, easy bruising or lymphadenopathy Allergic/Immunologic Allergic/Immunologic ED: Denies mouth swelling, tongue swelling or urticaria EXAM Physical Exam Narrative Exam Narrative: Tearful and somewhat anxious appearing Const Vital Signs: 09/28/22 14:38 Temperature 98.6 F Temperature Source Temporal Pulse Rate 103 H Respiratory Rate 16 Blood Pressure 131/109 H Blood Pressure Mean 116 Pulse Ox 97 Oxygen Delivery Method Room Air Positive well nourished and well developed General Appearance ED: well developed and NAD HEENT Reports TM's clear and moist mucous membranes normocephalic and atraumatic; Negative for trauma or tenderness Tympanic Membrane ED: Yes TM's clear Eyes PERRL and EOMs intact bilaterally General Eye ED: Negative for pale conjunctiva or scleral icterus Neck no lymphadenopathy, supple and no JVD General: Negative for tenderness Chest Wall inspection of chest normal and palpation of chest normal Chest: Negative for tenderness Resp normal respiratory effort and clear to auscultation bilaterally Effort and Inspection: Negative for respiratory distress or pain with movement Auscultation: Negative for rhonchi, wheezes or diminished lung sounds Cardio regular rate, regular rhythm, S1 normal heart sound, S2 normal heart sound and no murmurs Peripheral Pulses: pulses 2+ throughout GI normal to inspection, nondistended, normoactive bowel sounds, soft to palpation, non-tender, non-distended and no masses Back/Spine no CVA tenderness and no thoracic nor lumbar tenderness Extremity normal to inspection General Extremety ED: Negative for edema General Extremity: Negative for edema Neuro oriented x3, CN's II-XII intact bilaterally, no sensory deficits noted and gait normal Sensorium / Orientation: awake, alert, oriented to person, oriented to place and oriented to time Motor Exam: strength 5/5 throughout and strength abnormal Psych mental status grossly normal Skin no rashes or lesions noted and no wounds MDM MDM MDM Narrative Medical decision making narrative: Patient was given Ativan 1 mg p.o. Lab work-up obtained was unremarkable. Toxicology and alcohol pending. Patient will be evaluated by crisis. Care of patient turned over to evening physician awaiting evaluation by crisis and final disposition Lab Data Attestation: I reviewed the patient's lab results. Labs: Laboratory Results - last 24 hr 09/28/22 09/28/22 09/28/22 15:10 16:00 16:00 WBC 8.7 RBC 4.42 Hgb 13.4 Hct 39.8 MCV 90.0 MCH 30.3 MCHC 33.7 RDW Std Deviation 42.8 RDW Coeff of Matt 12.9 Plt Count 235 MPV 10.1 Immature Gran % (Auto) 0.200 Neut % (Auto) 60.8 Lymph % (Auto) 32.3 [place] % (Auto) 5.6 Eos % (Auto) 0.6 Baso % (Auto) 0.5 Absolute Neuts (auto) 5.3 Absolute Lymphs (auto) 2.81 Nucleated RBC % 0 Sodium 144 Potassium 3.3 L Chloride 113 H Carbon Dioxide 28.0 Anion Gap 3 L BUN 7 Creatinine 0.60 Estim Creat Clear Calc 89.29 Est GFR (MDRD) Af Amer 134 Est GFR (MDRD) Non-Af 110 BUN/Creatinine Ratio 11.6 Glucose 91 Calcium 9.2 Urine Opiates Screen Cancelled Urine Methadone Screen Cancelled Ur Barbiturates Screen Cancelled Ur Phencyclidine Scrn Cancelled Ur Amphetamines Screen Cancelled MDMA (Ecstasy) Screen Cancelled U Benzodiazepines Scrn Cancelled Urine Cocaine Screen Cancelled U Cannabinoids Screen Cancelled Ur Drug Screen Comment Cancelled 09/28/22 16:20 WBC RBC Hgb Hct MCV MCH MCHC RDW Std Deviation RDW Coeff of Matt Plt Count MPV Immature Gran % (Auto) Neut % (Auto) Lymph % (Auto) [place] % (Auto) Eos % (Auto) Baso % (Auto) Absolute Neuts (auto) Absolute Lymphs (auto) Nucleated RBC % Sodium Potassium Chloride Carbon Dioxide Anion Gap BUN Creatinine Estim Creat Clear Calc Est GFR (MDRD) Af Amer Est GFR (MDRD) Non-Af BUN/Creatinine Ratio Glucose Calcium Urine Opiates Screen Urine Methadone Screen Ur Barbiturates Screen Ur Phencyclidine Scrn Ur Amphetamines Screen MDMA (Ecstasy) Screen U Benzodiazepines Scrn Urine Cocaine Screen U Cannabinoids Screen Ur Drug Screen Comment Discharge Plan Triage Chief Complaint: Mental Health ED Provider: Roosevelt Huffman Dx/Rx/DC Orders Clinical Impression: Anxiety, Depression Prescriptions: No Action nitroglycerin 0.4 mg tablet, sublingual 0.4 mg sublingual Q5-15M PRN (Reason: chest pain) Qty: 25 3RF Rx Instructions: do not exceed 3 doses per episode omeprazole 20 mg capsule,delayed release(DR/EC) 20 mg PO BREAKFAST Qty: 90 3RF multivitamin Tablet 1 tab PO DAILY nitrofurantoin monohyd/m-cryst 100 mg Capsule 100 mg PO BID Rx Instructions: must administer with a meal/food lisinopril 2.5 mg tablet 2.5 mg PO DAILY Qty: 60 11RF atorvastatin 80 mg tablet 80 mg PO DAILY Qty: 30 11RF aspirin 81 mg capsule 81 mg PO DAILY Qty: 30 11RF metoprolol succinate 25 mg tablet extended release 24 hr 25 mg PO DAILY Qty: 90 0RF clopidogrel [Plavix] 75 mg tablet 75 mg PO DAILY Qty: 90 3RF escitalopram oxalate [Lexapro] 5 mg tablet 5 mg PO DAILY Qty: 30 1RF Primary Care Provider: Mk Drake Referrals: Mk Drake MD [Primary Care Provider] -
[2022-09-28 16:09] LABS: Absolute Lymphocyte Count 2.81 X10^3/uL (0.83-4.51); Absolute Neutrophil Count 5.3 X10^3/uL (2.0-7.7); Basophil# 0.04 X10^3/uL; Basophil% 0.5 % (0-1); Eosinophil# 0.05 X10^3/uL; Eosinophils% 0.6 % (0-5); Hematocrit 39.8 % (37-47); Hemoglobin 13.4 g/dL (12.0-15.0); Lymphocyte # 2.81 X10^3/ul (0.83-4.51); Lymphocyte % 32.3 % (19-41); Mean Corp Hgb Conc 33.7 g/dL (32-36); Mean Corpuscular Hgb 30.3 pg (27.0-32.0); Mean Platelet Vol. 10.1 fl (6.2-12.0); Monocyte# 0.49 X10^3/uL; Monocyte% 5.6 % (0-10); NRBC Flagged by Analyzer 0 % (0-5); Neutrophil % 60.8 % (47-70); Platelet Count 235 K/mm3 (150-450); RBC Distribution Width CV 12.9 % (11.6-14.6); RBC Distribution Width SD 42.8 fl (35.1-43.9); Red Blood Count 4.42 M/mm3 (4.2-5.4); White Blood Count 8.7 K/mm3 (4.4-11.0)
[2022-09-28] MEDS: LORazepam 1 MG Tablet PO (16:17)
[2022-09-28 16:28] LABS: Anion Gap 3 (5-15); BUN 7 mg/dL (7-18); BUN/Creat Ratio 11.6 RATIO (10-20); Calcium,Total 9.2 mg/dL (8.5-10.1); Chloride 113 mmol/L (98-107); EST Glomerular Filtration Rate 110 mL/min (>60); Est Glom Filt Rate - Afr Amer 134 mL/min (>60); Estimated Creatinine Clearance 89.29 ml/min; Glucose 91 mg/dL (74-106); Potassium 3.3 mmol/L (3.5-5.1); Sodium Level 144 mmol/L (136-145)
[2022-09-28 16:41] LABS: Amphetamine Urine VISTA NEGATIVE (<1000 ng/mL); Barbiturate Urine VISTA NEGATIVE (< 200 ng/mL); Benzodiazepine Urine VISTA NEGATIVE (< 200 ng/mL); Cocaine Urine VISTA NEGATIVE (< 300 ng/mL); Ecstacy Urine VISTA NEGATIVE (< 500 ng/mL); Methadone Urine VISTA NEGATIVE (< 300 ng/mL); PCP Urine VISTA NEGATIVE (< 25 ng/mL); THC Urine VISTA POSITIVE (< 50 ng/mL); Vista UDS pH Range 5
[2022-09-28 16:41] LABS: Alcohol, Blood (Medical)-Serum < 3.0 mg/dL
--- NOTE | 2022-09-28 17:14 | NURSING ---
FAXED CHART TO CRISIS
[2022-09-28 18:17] VITALS: BP 106/57; PULSE 73; RESP 14; TEMP 36.5; O2SAT 97
[2022-09-28 19:41] VITALS: BP 112/80; PULSE 65; RESP 18; O2SAT 100
== END 2022-09-28 19:46 | disposition home or self-care (01) ==
PROVIDERS: Emergency Provider Emergency Medicine; PCP Internal Medicine; Visit Provider Emergency Medicine
DX: F41.9 Anxiety disorder, unspecified (principal); I25.10 Atherosclerotic heart disease of native coronary artery without angina pectoris; E78.5 Hyperlipidemia, unspecified; F17.210 Nicotine dependence, cigarettes, uncomplicated; I10 Essential (primary) hypertension; F32.A Depression, unspecified; I25.2 Old myocardial infarction; Z79.82 Long term (current) use of aspirin; Z79.899 Other long term (current) drug therapy
CPT/HCPCS: 80048; 80307; 82077; 85025; 87811; 99283

== ENCOUNTER 2022-11-06 15:52 | Observation (INO) | payer MEDICAID, SELFPAY ==
[2022-11-06] VITALS (8 sets, daily range): BP systolic 92–106; BP diastolic 58–78; PULSE 56–65; RESP 14–18; TEMP 36.4–37; O2SAT 97–99; BMI 21.6; BMI 20.5
--- NOTE | 2022-11-06 16:15 | RAD_ITS ---
STUDY: X-RAY CHEST REASON FOR EXAM: Female, 52 years old. chest pain TECHNIQUE: AP portable COMPARISON: December 04, 2021 FINDINGS: The lungs are clear and expanded. There is no demonstrated pleural abnormality. Normal size heart. Normal mediastinum and hai. Normal visualized pulmonary arteries. Normal visualized aortic arch and descending thoracic aorta. Normal visualized thoracic spine. Normal visualized ribs, clavicles, and shoulders. There is no demonstrated abnormality of the visualized soft tissue structures of the upper abdomen. No significant change since prior exam RAD/Chest 1 View (Portable) IMPRESSION: Normal x-ray examination of the chest. Electronically Signed: Jn Rothman MD at 16:35 EST ,
--- NOTE | 2022-11-06 16:15 | EKG12_ITS ---
Test Reason : Blood Pressure : / mmHG Vent. Rate : 065 BPM Atrial Rate : 065 BPM P-R Int : 136 ms QRS Dur : 076 ms QT Int : 460 ms P-R-T Axes : 066 066 110 degrees QTc Int : 478 ms Normal sinus rhythm Septal infarct , age undetermined T wave abnormality, consider anterior ischemia Abnormal ECG Confirmed by IVANA LACY, PASQUALE ([id number]), development editor PRASAD ROSEN ([id number]) on 11/08/2022 10:24:21 AM Referred By: JESSICA Confirmed By:PASQUALE HEATH MD
[2022-11-06] MEDS: Aspirin 81 MG TAB.CHEW 324 MG PO (16:16)
[2022-11-06] MEDS: Nitroglycerin Oint 1 INCH PACKET TRANSDERM. (16:17)
--- NOTE | 2022-11-06 16:20 | EDS_ITS ---
HPI History of Present Illness Chief Complaint: Chest Pain Informant: patient Narrative Narrative: Brought in by EMS for increasing chest pressure with a syncopal episode. History of multiple stents last time a year ago. She is followed by Dr. Forrest. She has been dealing with flulike symptoms for the past week states today is feeling better she had fevers muscle aches vomiting and diarrhea. She is tolerating oral fluids. Today around 8 AM woke up felt slight chest tightness is progressed throughout the day she took a walk with her significant other states aching shooting pressure in diaphoretic, which caused her to pass out. She awakened she took a nitro. She states she is on aspirin and Plavix. She did not take any of those today. Her blood pressure was low on EMS arrival systolic 80s started on IV fluids. Denies urinary symptoms. Denies bloody stools. Currently slight pressure. History hypertension hyperlipidemia and continued tobacco history. Denies diabetes. EMS EKG reviewed sinus rhythm no acute changes. CVD Risk Factors: Positive for Hypertension, Hypercholesterolemia and Smoking PE Risk Factors: Negative for Recent Travel/Surgery, Recent Immobilization or Prior DVT or PE [facility] Medical History Anemia Anxiety and depression Atherosclerotic heart disease of [place] coronary artery without angina pectoris Cardiac enzymes elevated Cervical cancer Colon cancer screening Essential hypertension GERD (gastroesophageal reflux disease) Health care maintenance HLD (hyperlipidemia) Insomnia Left ankle pain Malaise and fatigue Nonsustained paroxysmal ventricular tachycardia Seasonal allergies STEMI (ST elevation myocardial infarction) Tobacco abuse Home Medications aspirin 81 mg capsule 81 mg PO DAILY #30 caps 09/07/21 [Rx Last Taken 12/03/21 10:00] nitroglycerin 0.4 mg sublingual tablet 0.4 mg sublingual Q5-15M PRN chest pain #25 tabs 12/28/21 [Rx Last Taken Unknown] escitalopram oxalate 10 mg tablet 10 mg PO DAILY #60 tabs 10/09/22 [Rx Last Taken Unknown] mirtazapine 7.5 mg tablet 7.5 mg PO QHS #30 tabs 10/09/22 [Rx Last Taken Unknown] atorvastatin 80 mg tablet 80 mg PO DAILY cholesterol #90 tabs 10/11/22 [Rx Last Taken Unknown] clopidogrel 75 mg tablet (Plavix) 75 mg PO DAILY #90 tabs 10/11/22 [Rx Last Taken Unknown] lisinopril 2.5 mg tablet 2.5 mg PO DAILY #90 tabs 10/11/22 [Rx Last Taken Unknown] metoprolol succinate 25 mg tablet,extended release 24 hr 25 mg PO DAILY #90 tabs 10/11/22 [Rx Last Taken Unknown] pantoprazole 40 mg tablet,delayed release 40 mg PO DAILY #90 tabs 10/11/22 [Rx Last Taken Unknown] Allergy/AdvReac Type Severity Reaction Status Date / Time albuterol Allergy Mild unknown Verified 11/06/22 15:52 penicillin V Allergy Mild unkonwn Verified 11/06/22 15:52 amoxicillin Allergy Hives Verified 11/06/22 15:52 Family History Other Alcoholism Anemia Anxiety Arthritis CVA (cerebral vascular accident) Cancer Cervical cancer Colon cancer DVT (deep venous thrombosis) Depression Diabetes Heart disease High cholesterol Hypertension Myocardial infarction Ovarian cancer Thyroid disorder Surgical History History of coronary artery stent placement (08/08/21) History of hysterectomy History of intravascular stent placement History of left heart catheterization (12/05/21) Social History Smoking Status: Current every day smoker tobacco type: cigarettes Tobacco: How many years used: 30 alcohol intake: never substance use type: former substance user and marijuana what type of physical activity do you participate in: none ROS ROS ED Constitutional Constitutional ED: Denies chills, fever(s) or sweats Eyes Eyes: Denies change in vision ENT ENT ED: Denies dysphagia or sore throat Cardiovascular Cardiovascular: Reports chest pain; Denies leg edema, palpitations or racing heartbeat Respiratory/Chest Respiratory/Chest: Denies cough, dyspnea or dyspnea on exertion Gastrointestinal Gastrointestinal: Denies abdominal pain, diarrhea, nausea or vomiting Genitourinary Genitourinary ED: Denies dysuria, hematuria or urinary frequency Musculoskeletal Musculoskeletal: Denies back pain, extremity pain or neck pain Integumentary Denies rash or wounds Neurologic Neurologic: Denies headache(s), paresthesias or weakness EXAM Physical Exam Const Vital Signs: 11/06/22 15:53 11/06/22 15:55 11/06/22 16:17 Temperature 97.5 F L Temperature Source Temporal Pulse Rate 65 64 Respiratory Rate 18 Respiratory Effort Normal Non-Labored Blood Pressure 104/69 106/75 Blood Pressure Mean 80 Pulse Ox 97 Oxygen Delivery Method Room Air 11/06/22 17:39 11/06/22 18:04 Temperature 97.8 F Temperature Source Temporal Pulse Rate 64 61 Respiratory Rate 18 16 Respiratory Effort Blood Pressure 99/78 97/66 Blood Pressure Mean 85 76 Pulse Ox 97 99 Oxygen Delivery Method Room Air Room Air Positive well nourished and well developed General Appearance ED: well developed and NAD HEENT Reports moist mucous membranes normocephalic and atraumatic Eyes PERRL, EOMs intact bilaterally and conjunctivae normal General Eye ED: Yes normal appearance of both eyes Neck no lymphadenopathy and supple General: Negative for tenderness Chest Wall Chest: Negative for tenderness Resp normal respiratory effort and normal air movement Effort and Inspection: symmetric chest movement; Negative for respiratory distress Cardio regular rate, regular rhythm and no murmurs Peripheral Pulses: pulses 2+ throughout GI normal to inspection, nondistended, normoactive bowel sounds and non-tender Palpation: Negative for guarding or rebound tenderness present Back/Spine no CVA tenderness and no thoracic nor lumbar tenderness Extremity normal to inspection General Extremety ED: Negative for edema or tenderness General Extremity: Negative for edema Neuro oriented x3 and no sensory deficits noted Sensorium / Orientation: awake and alert Skin no rashes or lesions noted and no wounds MDM MDM MDM Narrative Medical decision making narrative: Interventions / MDM: Differential diagnosis: ACS, syncope, cardiac dysrhythmia, Diagnosis considered but do not suspect: Pulm embolism, however no dyspnea or hypoxia. My EKG interpretation: Sinus rate of 65, no ST changes, T wave flattening extreme lateral leads, QTc 478. Imaging independently reviewed and interpreted by myself: Chest x-ray no acute process. External documents reviewed: Cardiac catheterization 11/2021 noted patent LAD mild irregularities from left main left circumflex. RCA was 20 to 30% narrowed. Moderate apical hypokinesis EF of 40 to 50%. Condition noted she has a history of nonsustained ventricular tachycardia from her PA in 2020. Cardiology note from June noted she gets diaphoretic prior to her syncopal episode. She had a recommended 24-hour Holter monitor. Test considered but not ordered:N/A ED course: Patient Present syncopal episode with chest pains. She has chest pressure symptoms proved with Nitropaste. Soft blood pressure improving with IV fluids. EKG no acute fine endings initial troponin at 34. Symptom-free currently. Concern patient with a syncopal episode history of nonsustained V. tach currently still being worked up. She states she did follow-up with her 24- hour Holter monitor had at the recommended 30-day event monitor for which has not been performed. I did speak with her well blower Dr. Forrest with her history of nonsustained V. tach and now syncopal episode, he does agree with admission to the hospital for monitoring. Re-evaluation: stable 1999: Evaluation the patient's COVID testing did return positive. Clinical symptoms are improving today. Disposition discussed with patient/family/significant other: Patient and significant other Case discussed with consulting clinician: Cardiology, Dr. Forrest, hospitalist Dr. Reynaga Lab Data Attestation: I reviewed the patient's lab results. Labs: Laboratory Results - last 24 hr 11/06/22 11/06/22 16:00 16:00 WBC 6.1 RBC 4.40 Hgb 13.3 Hct 40.3 MCV 91.6 MCH 30.2 MCHC 33.0 RDW Std Deviation 42.1 RDW Coeff of Matt 12.7 Plt Count 255 MPV 10.8 Immature Gran % (Auto) 0.200 Neut % (Auto) 41.2 L Lymph % (Auto) 46.9 H [place] % (Auto) 9.1 Eos % (Auto) 1.8 Baso % (Auto) 0.8 Absolute Neuts (auto) 2.5 Absolute Lymphs (auto) 2.84 Nucleated RBC % 0 Sodium 140 Potassium 3.4 L Chloride 109 H Carbon Dioxide 26.0 Anion Gap 5 BUN 13 Creatinine 0.82 Estim Creat Clear Calc 68.51 Est GFR (MDRD) Af Amer 94 Est GFR (MDRD) Non-Af 78 BUN/Creatinine Ratio 16.0 Glucose 116 H Calcium 8.7 Troponin I High Sens 34 Radiography Diagnostic Testing: Clinical Impression(s) from Imaging Studies Chest X-Ray 11/06/22 16:15 IMPRESSION: Normal x-ray examination of the chest. Electronically Signed: Jn Rothman MD at 16:35 EST , EKG Initial EKG: Attestation: I personally reviewed and interpreted this EKG as follows: Comments: Sinus rate of 65, no ST changes, T wave flattening extreme lateral leads, QTc 478. Discharge Plan Dx/Rx/DC Orders Clinical Impression: Syncope, Chest pain, CAD (coronary artery disease), COVID-19 virus infection, Hypokalemia Disposition Disposition: Acute Care Hospital [facility] Discharge Date/Time: 11/06/22 20:30
[2022-11-06 16:48] LABS: Anion Gap 5 (5-15); BUN 13 mg/dL (7-18); Calcium,Total 8.7 mg/dL (8.5-10.1); Chloride 109 mmol/L (98-107); Creatinine, Serum 0.82 mg/dL (0.55-1.02); EST Glomerular Filtration Rate 78 mL/min (>60); Est Glom Filt Rate - Afr Amer 94 mL/min (>60); Estimated Creatinine Clearance 68.51 ml/min; Glucose 116 mg/dL (74-106); Potassium 3.4 mmol/L (3.5-5.1); Sodium Level 140 mmol/L (136-145); Troponin-I HS (w/2H Reflex) 34 pg/mL (3.0-54.0)
[2022-11-06 16:49] LABS: Absolute Lymphocyte Count 2.84 X10^3/uL (0.83-4.51); Absolute Neutrophil Count 2.5 X10^3/uL (2.0-7.7); Basophil# 0.05 X10^3/uL; Basophil% 0.8 % (0-1); Eosinophil# 0.11 X10^3/uL; Eosinophils% 1.8 % (0-5); Hematocrit 40.3 % (37-47); Hemoglobin 13.3 g/dL (12.0-15.0); Lymphocyte # 2.84 X10^3/ul (0.83-4.51); Lymphocyte % 46.9 % (19-41); Mean Corpuscular Hgb 30.2 pg (27.0-32.0); Mean Corpuscular Volume 91.6 fL (81-99); Mean Platelet Vol. 10.8 fl (6.2-12.0); Monocyte# 0.55 X10^3/uL; Monocyte% 9.1 % (0-10); NRBC Flagged by Analyzer 0 % (0-5); Neutrophil # 2.49 X10^3/uL (2.7-7.7); Neutrophil % 41.2 % (47-70); Platelet Count 255 K/mm3 (150-450); RBC Distribution Width CV 12.7 % (11.6-14.6); RBC Distribution Width SD 42.1 fl (35.1-43.9); White Blood Count 6.1 K/mm3 (4.4-11.0)
[2022-11-06] MEDS: 0.9% Normal Saline 1,000 ML 999 ML IV (17:00)
--- NOTE | 2022-11-06 17:53 | CON.PCM.CA_ITS ---
Assessment & Plan Assessment/Plan (1) Chest pain: PLAN: She presents with chest discomfort which has some atypical features. My recommendation at this time would be to cycle her cardiac enzymes and if negative obtain a pharmacologic myocardial perfusion stress test. With her last cardiac catheterization a year ago I do not feel inclined to repeat the above. Depending on the findings further recommendations will be made. (2) Syncope: PLAN: It is not clear to me whether she really had a syncopal episode or a near syncopal episode. We will once again reevaluate her left ventricular function for risk stratification. If the above is noted to be normal I would suggest that she have a 30-day event monitor and follow her up as an outpatient. Thank you for allowing me to participate in the care of your patient. Please don't hesitate to call if any issues arise. HPI Consult Data Date of Consult: 11/06/22 HPI Narrative HPI Narrative: BRANT LANTIGUA, is a 52 F who presents to the emergency room with complaints of chest discomfort and near syncope. She had presented initially in November 2021 with palpitations and needed to wear a 48-hour Holter monitor which demonstrated a minimum heart rate of 43 bpm, maximum 162 bpm in sinus rhythm and an average h eart rate of 72 bpm. Occasional ventricular ectopic beats were noted. In July 2021 she had undergone a cardiac catheterization with stenting to her left anterior descending artery. Repeat cardiac catheterization in November 2021 demonstrated nonobstructive coronary arteries with the previously placed stent in the LAD being patent, and her ejection fraction being approximately 45 to 50% with apical hypokinesis. She was scheduled to have an event monitor placed but she did not follow through with the above. She has had occasional dizziness and lightheadedness but denies any mayra syncope. She says that she had some chest discomfort with this episode. Her EKG demonstrates normal sinus rhythm with no acute changes. FOR[facility]LY [facility], LATER [facility] Medical History Anemia Anxiety and depression Atherosclerotic heart disease of [place] coronary artery without angina pectoris Cardiac enzymes elevated Cervical cancer Colon cancer screening Essential hypertension GERD (gastroesophageal reflux disease) Health care maintenance HLD (hyperlipidemia) Insomnia Left ankle pain Malaise and fatigue Nonsustained paroxysmal ventricular tachycardia Seasonal allergies STEMI (ST elevation myocardial infarction) Tobacco abuse Home Medications aspirin 81 mg capsule 81 mg PO DAILY #30 caps 09/07/21 [Rx Last Taken 12/03/21 10:00] nitroglycerin 0.4 mg sublingual tablet 0.4 mg sublingual Q5-15M PRN chest pain #25 tabs 12/28/21 [Rx Last Taken Unknown] escitalopram oxalate 10 mg tablet 10 mg PO DAILY #60 tabs 10/09/22 [Rx Last Taken Unknown] mirtazapine 7.5 mg tablet 7.5 mg PO QHS #30 tabs 10/09/22 [Rx Last Taken Unknown] atorvastatin 80 mg tablet 80 mg PO DAILY cholesterol #90 tabs 10/11/22 [Rx Last Taken Unknown] clopidogrel 75 mg tablet (Plavix) 75 mg PO DAILY #90 tabs 10/11/22 [Rx Last Taken Unknown] lisinopril 2.5 mg tablet 2.5 mg PO DAILY #90 tabs 10/11/22 [Rx Last Taken Unknown] metoprolol succinate 25 mg tablet,extended release 24 hr 25 mg PO DAILY #90 tabs 10/11/22 [Rx Last Taken Unknown] pantoprazole 40 mg tablet,delayed release 40 mg PO DAILY #90 tabs 10/11/22 [Rx Last Taken Unknown] Allergy/AdvReac Type Severity Reaction Status Date / Time albuterol Allergy Mild unknown Verified 11/06/22 15:52 penicillin V Allergy Mild unkonwn Verified 11/06/22 15:52 amoxicillin Allergy Hives Verified 11/06/22 15:52 Family History Other Alcoholism Anemia Anxiety Arthritis CVA (cerebral vascular accident) Cancer Cervical cancer Colon cancer DVT (deep venous thrombosis) Depression Diabetes Heart disease High cholesterol Hypertension Myocardial infarction Ovarian cancer Thyroid disorder Surgical History History of coronary artery stent placement (08/08/21) History of hysterectomy History of intravascular stent placement History of left heart catheterization (12/05/21) Social History Smoking Status: Current every day smoker tobacco type: cigarettes Tobacco: How many years used: 30 alcohol intake: never substance use type: former substance user and marijuana what type of physical activity do you participate in: none ROS Constitutional Constitutional: Denies fever(s) or weight loss Eyes Eyes: Reports systems reviewed and no addt'l complaints, except as documented ENT HEENT: Reports systems reviewed and no addt'l complaints, except as documented Cardiovascular Cardiovascular: Reports chest pain at rest, lightheadedness and syncope; Denies chest pain with activity, dyspnea at rest, dyspnea on exertion, edema, palpitations or paroxysmal nocturnal dyspnea Respiratory/Chest Respiratory/Chest: Denies dyspnea on exertion, productive cough, shortness of breath at rest or shortness of breath with exertion Gastrointestinal Gastrointestinal: Denies change in bowel habits, nausea, vomiting or weight changes Genitourinary Genitourinary: Denies difficulty urinating Musculoskeletal Musculoskeletal: Denies joint stiffness or muscle weakness Integumentary Integumentary: Denies lesions Neurologic Neurologic: Denies dizziness or syncope Psychiatric Psychiatric: Denies anxiety Endocrine Endocrinology: Denies excessive sweating or fatigue Hematologic/Lymphatic Hematologic/Lymphatic: Denies anemia Allergic/Immunologic Allergic/Immunologic: Denies seasonal rhinorrhea Physical Exam Const alert, oriented x3 and no apparent distress General Appearance: cooperative HEENT hearing grossly normal bilaterally Head and Scalp: atraumatic Eyes EOMs intact bilaterally Neck General: normal visual inspection Chest inspection of chest normal and palpation of chest normal Resp normal respiratory effort Auscultation: clear to auscultation bilaterally Cardio regular rate, regular rhythm, S1 normal heart sound and S2 normal heart sound Jugular Venous Distention: JVD GI normal to inspection, nondistended, normoactive bowel sounds Extremity normal capillary refill and no pedal edema Peripheral Pulses: Yes pulses 2+ throughout and femoral pulses present Skin no rashes or lesions noted Neuro oriented x3 and CN's II-XII intact bilaterally Psych Appearance: grossly normal and appropriate Risk Stratification Risk Stratification Applicable: Yes Age >/= 65: No >/= 3 CAD Risk Factors (HTN, HLD, DM, family hx of CAD, or current smoker): No Aspirin Use in the Past 7 Days: No Severe Angina (>/= episodes in 24 hours): No EKG ST Changes >/= 0.5mm: No Positive Cardiac Marker: No ANT Risk Stratification Score: 0 ANT % Risk: 5% Risk Objective Data Vital Signs: Vital Signs Temp Pulse Resp BP Pulse Ox O2 Del Method 97.5 F L 64 18 99/78 97 Room Air 11/06/22 15:53 11/06/22 17:39 11/06/22 17:39 11/06/22 17:39 11/06/22 17:39 11/06/22 17:39 Oxygen Delivery Method Room Air Weight: 125 lb 14.143 oz Body Mass Index (BMI) 21.6 Lab / Micro Data Result Diagrams: 11/06/22 16:00 11/06/22 16:00 Labs: Laboratory Results - last 24 hr 11/06/22 16:00: WBC 6.1, RBC 4.40, Hgb 13.3, Hct 40.3, MCV 91.6, MCH 30.2, MCHC 33.0, RDW Std Deviation 42.1, RDW Coeff of Matt 12.7, Plt Count 255, MPV 10.8, Immature Gran % (Auto) 0.200, Neut % (Auto) 41.2 L, Lymph % (Auto) 46.9 H, [place] % (Auto) 9.1, Eos % (Auto) 1.8, Baso % (Auto) 0.8, Absolute Neuts (auto) 2.5, Absolute Lymphs (auto) 2.84, Nucleated RBC % 0 11/06/22 16:00: Sodium 140, Potassium 3.4 L, Chloride 109 H, Carbon Dioxide 26.0, Anion Gap 5, BUN 13, Creatinine 0.82, Estim Creat Clear Calc 68.51, Est GFR (MDRD) Af Amer 94, Est GFR (MDRD) Non-Af 78, BUN/Creatinine Ratio 16.0, Glucose 116 H, Calcium 8.7, Troponin I High Sens 34 Cardiology Labs/Tests 11/06/22 16:00: WBC 6.1, RBC 4.40, Hgb 13.3, Hct 40.3, MCV 91.6, MCH 30.2, MCHC 33.0, Plt Count 255, MPV 10.8, Immature Gran % (Auto) 0.200, Neut % (Auto) 41.2 L, Lymph % (Auto) 46.9 H, [place] % (Auto) 9.1, Eos % (Auto) 1.8, Baso % (Auto) 0.8, Absolute Neuts (auto) 2.5, Nucleated RBC % 0 11/06/22 16:00: Sodium 140, Potassium 3.4 L, Chloride 109 H, Carbon Dioxide 26.0, Anion Gap 5, BUN 13, Creatinine 0.82, Est GFR (MDRD) Af Amer 94, Est GFR (MDRD) Non-Af 78, BUN/Creatinine Ratio 16.0, Glucose 116 H, Calcium 8.7 Rhythm: EKG: ECHO: Stress Test: Cardiac Cath: PCI: CT Surgery: Holter monitor: EPS: PPM: CXR: Chest CT Scan: Radiography Diagnostic Testing: Radiology Impression Chest X-Ray 11/06/22 16:15 IMPRESSION: Normal x-ray examination of the chest. Electronically Signed: Jn Rothman MD at 16:35 EST ,
[2022-11-06] MEDS: Potassium Chloride Oral Tablet 20 MEQ 40 MEQ PO (17:59)
--- NOTE | 2022-11-06 18:05 | ED.RN ---
nitro removed per pt. request
--- NOTE | 2022-11-06 18:21 | HP.PCM.HOS_ITS ---
[facility] - General General Date of Service: 11/06/22 Chief Complaint: chest pain [facility] Narrative BRANT LANTIGUA, is a 52 F who presents w chest pain. The past week pt was having N/V/D, since resolved. Today was that best that she felt in 1 week, so she went out for a walk. She started experiencing midsternal CP then felt dizzy and passed out. He chest pain felt similiar to when she has had MIs in the past. Patient presented to the emergency room and underwent a work-up that was unremarkable. Patient was seen by cardiology in the emergency room who ordered a stress test. Currently patient is chest pain-free but does have Nitropaste applied to her chest. REPLACED BY [facility] Medical History Anemia Anxiety and depression Atherosclerotic heart disease of [place] coronary artery without angina pectoris Cardiac enzymes elevated Cervical cancer Colon cancer screening Essential hypertension GERD (gastroesophageal reflux disease) Health care maintenance HLD (hyperlipidemia) Insomnia Left ankle pain Malaise and fatigue Nonsustained paroxysmal ventricular tachycardia Seasonal allergies STEMI (ST elevation myocardial infarction) Tobacco abuse Home Medications aspirin 81 mg capsule 81 mg PO DAILY #30 caps 09/07/21 [Rx Last Taken 12/03/21 10:00] nitroglycerin 0.4 mg sublingual tablet 0.4 mg sublingual Q5-15M PRN chest pain #25 tabs 12/28/21 [Rx Last Taken Unknown] escitalopram oxalate 10 mg tablet 10 mg PO DAILY #60 tabs 10/09/22 [Rx Last Taken Unknown] mirtazapine 7.5 mg tablet 7.5 mg PO QHS #30 tabs 10/09/22 [Rx Last Taken Unknown] atorvastatin 80 mg tablet 80 mg PO DAILY cholesterol #90 tabs 10/11/22 [Rx Last Taken Unknown] clopidogrel 75 mg tablet (Plavix) 75 mg PO DAILY #90 tabs 10/11/22 [Rx Last Taken Unknown] lisinopril 2.5 mg tablet 2.5 mg PO DAILY #90 tabs 10/11/22 [Rx Last Taken Unknown] metoprolol succinate 25 mg tablet,extended release 24 hr 25 mg PO DAILY #90 tabs 10/11/22 [Rx Last Taken Unknown] pantoprazole 40 mg tablet,delayed release 40 mg PO DAILY #90 tabs 10/11/22 [Rx Last Taken Unknown] Allergy/AdvReac Type Severity Reaction Status Date / Time albuterol Allergy Mild unknown Verified 11/06/22 15:52 penicillin V Allergy Mild unkonwn Verified 11/06/22 15:52 amoxicillin Allergy Hives Verified 11/06/22 15:52 Family History Other Alcoholism Anemia Anxiety Arthritis CVA (cerebral vascular accident) Cancer Cervical cancer Colon cancer DVT (deep venous thrombosis) Depression Diabetes Heart disease High cholesterol Hypertension Myocardial infarction Ovarian cancer Thyroid disorder Surgical History History of coronary artery stent placement (08/08/21) History of hysterectomy History of intravascular stent placement History of left heart catheterization (12/05/21) Social History Smoking Status: Current every day smoker tobacco type: cigarettes Tobacco: How many years used: 30 alcohol intake: never substance use type: former substance user and marijuana what type of physical activity do you participate in: none ROS ROS Narrative Patient does develop whitish discoloration of her fingers when she is out in the cold. All review of systems were negative except as mentioned above in the history of present illness and the other review of systems. Vital Signs Vital Signs Vital Signs: 11/06/22 15:53 11/06/22 15:55 11/06/22 16:17 Temperature 36.4 C L Temperature Source Temporal Pulse Rate 65 64 Respiratory Rate 18 Respiratory Effort Normal Non-Labored Blood Pressure 104/69 106/75 Blood Pressure Mean 80 Pulse Ox 97 Oxygen Delivery Method Room Air 11/06/22 17:39 11/06/22 18:04 Temperature 36.6 C Temperature Source Temporal Pulse Rate 64 61 Respiratory Rate 18 16 Respiratory Effort Blood Pressure 99/78 97/66 Blood Pressure Mean 85 76 Pulse Ox 97 99 Oxygen Delivery Method Room Air Room Air Weight Weight: 57.1 kg Body Mass Index (BMI) 21.6 Physical Exam Narrative - Physical Exam General: Alert, Oriented x3, Cooperative HEENT: Atraumatic, PERRLA, EOMI, Normocephalic Oral: Moist Mucosa, No Gingival or Mucosal Lesions/ Ulcerations Neck: Supple, No JVD, Negative Carotid Bruits Lungs: Clear to auscultation, Normal air movement Cardiovascular: Regular rate, Normal S1, Normal S2, No murmurs Abdomen: Bowel Sounds Present, Soft, Non Tender, Non-Distended, No Hepato- splenomegaly Extremities: No cyanosis, No edema, Capillary Refill Less than 3 Seconds. Clubbing of her fingers Skin: No rashes, No breakdown Musculoskeletal: No Tenderness to Palpation of Joints or Extremities Neurological: Neuro grossly intact Psych/Mental Status: Normal Affect, Appropriate Results Lab / Micro Data Attestation: I reviewed the patient's lab results. Result Diagrams: 11/06/22 16:00 11/06/22 16:00 Labs: Laboratory Results - last 24 hr 11/06/22 16:00: WBC 6.1, RBC 4.40, Hgb 13.3, Hct 40.3, MCV 91.6, MCH 30.2, MCHC 33.0, RDW Std Deviation 42.1, RDW Coeff of Matt 12.7, Plt Count 255, MPV 10.8, Immature Gran % (Auto) 0.200, Neut % (Auto) 41.2 L, Lymph % (Auto) 46.9 H, [place] % (Auto) 9.1, Eos % (Auto) 1.8, Baso % (Auto) 0.8, Absolute Neuts (auto) 2.5, Absolute Lymphs (auto) 2.84, Nucleated RBC % 0 11/06/22 16:00: Sodium 140, Potassium 3.4 L, Chloride 109 H, Carbon Dioxide 26.0, Anion Gap 5, BUN 13, Creatinine 0.82, Estim Creat Clear Calc 68.51, Est GFR (MDRD) Af Amer 94, Est GFR (MDRD) Non-Af 78, BUN/Creatinine Ratio 16.0, Glucose 116 H, Calcium 8.7, Troponin I High Sens 34 EKG Initial EKG: Attestation: I personally reviewed and interpreted this EKG as follows: Prior EKG tracings: available for review EKG Rhythm Intrepretation: Sinus Rhythm Radiology Impression Chest X-Ray 11/06/22 16:15 IMPRESSION: Normal x-ray examination of the chest. Electronically Signed: Jn Rothman MD at 16:35 EST , Assessment & Plan Assessment/Plan (1) Unstable angina: PLAN: Currently chest pain-free Seen by cardiology in the emergency room and plan is for a stress test on the (2) Syncope: PLAN: May have been vasovagal Check orthostats (3) Hypokalemia: PLAN: Replaced in the ED. Follow-up in a.m., check magnesium PLAN: Plan Possible Raynaud's phenomenon: Patient experiences with sounds like Raynaud's of her fingers when she goes out in the cold. Patient is an active smoker so we will need to quit. Patient may consider dihydropyridine calcium channel blockers to help Chronic conditions * Coronary artery disease: Continue with aspirin, atorvastatin, clopidogrel, lisinopril and metoprolol succinate * Tobacco abuse: Ongoing. Patient smokes half pack cigarettes per day. Advised cessation. VTE prophylaxis: Low risk as patient is currently observation status. CODE STATUS: Addressed with the patient. Patient is full code. Charges/Coding Visit Charges Inpatient E&M: 52321 Init Hosp L2
[2022-11-06 18:22] LABS: Reflex Troponin-HS? (from REC) Y
[2022-11-06] MEDS: 0.9% Normal Saline 1,000 ML 150 ML IV (18:22)
[2022-11-06 19:09] LABS: Troponin-I HS 34 pg/mL (3.0-54.0)
[2022-11-06] MEDS: Mirtazapine 15 MG Tablet 7.5 MG PO (21:44)
[2022-11-07] MEDS: 0.9% Normal Saline 1,000 ML 150 ML IV (02:30)
[2022-11-07 03:45] VITALS: BP 89/55; PULSE 60; RESP 18; TEMP 36.5; O2SAT 99
[2022-11-07 03:54] LABS: Anion Gap 2 (5-15); BUN 11 mg/dL (7-18); BUN/Creat Ratio 22.2 RATIO (10-20); Calcium,Total 8.1 mg/dL (8.5-10.1); Chloride 118 mmol/L (98-107); EST Glomerular Filtration Rate 138 mL/min (>60); Est Glom Filt Rate - Afr Amer 167 mL/min (>60); Estimated Creatinine Clearance 111.34 ml/min; Glucose 95 mg/dL (74-106); Potassium 3.9 mmol/L (3.5-5.1); Sodium Level 146 mmol/L (136-145)
[2022-11-07 04:00] LABS: Troponin-I HS 34 pg/mL (3.0-54.0)
[2022-11-07 04:07] VITALS: BP 105/67; PULSE 58; RESP 18; TEMP 36.6; O2SAT 100
--- NOTE | 2022-11-07 05:55 | EKG12_ITS ---
Test Reason : AM EKG Blood Pressure : / mmHG Vent. Rate : 052 BPM Atrial Rate : 052 BPM P-R Int : 148 ms QRS Dur : 076 ms QT Int : 452 ms P-R-T Axes : 073 065 084 degrees QTc Int : 420 ms Sinus bradycardia with sinus arrhythmia Anteroseptal infarct , age undetermined T wave abnormality, consider lateral ischemia Abnormal ECG Confirmed by IVANA LACY, PASQUALE ([id number]), website/blog editor PRASAD ROSEN ([id number]) on 11/08/2022 1:19:43 PM Referred By: Confirmed By:PASQUALE HEATH MD
[2022-11-07 06:14] VITALS: BP 105/67; PULSE 58; RESP 18; TEMP 36.6; O2SAT 100
[2022-11-07] MEDS: Aspirin 81 MG TAB.CHEW PO (06:16)
[2022-11-07] MEDS: Clopidogrel Bisulfate 75 MG Tablet PO (06:16)
--- NOTE | 2022-11-07 07:38 | PN.CARD_ITS ---
Subjective Subjective Patient seen and evaluated. Appears to be stable. No complaints Objective Data Vital Signs: Vital Signs Temp Pulse Resp BP Pulse Ox O2 Del Method 97.8 F 58 L 18 105/67 100 Room Air 11/07/22 06:14 11/07/22 06:14 11/07/22 06:14 11/07/22 06:14 11/07/22 06:14 11/07/22 06:14 Oxygen Delivery Method Room Air Weight: 119 lb 7.849 oz Body Mass Index (BMI) 20.5 Intake & Output: Intake and Output for Last 24 Hours 11/05/22 11/06/22 11/07/22 23:59 23:59 23:59 Intake Total 1000 / 1300 1300 / 1300 Balance 1000 / 1300 1300 / 1300 Lab / Micro Data Result Diagrams: 11/06/22 16:00 11/07/22 03:28 Labs: Laboratory Results - last 24 hr 11/06/22 16:00: WBC 6.1, RBC 4.40, Hgb 13.3, Hct 40.3, MCV 91.6, MCH 30.2, MCHC 33.0, RDW Std Deviation 42.1, RDW Coeff of Matt 12.7, Plt Count 255, MPV 10.8, Immature Gran % (Auto) 0.200, Neut % (Auto) 41.2 L, Lymph % (Auto) 46.9 H, [place] % (Auto) 9.1, Eos % (Auto) 1.8, Baso % (Auto) 0.8, Absolute Neuts (auto) 2.5, Absolute Lymphs (auto) 2.84, Nucleated RBC % 0 11/06/22 16:00: Sodium 140, Potassium 3.4 L, Chloride 109 H, Carbon Dioxide 26.0, Anion Gap 5, BUN 13, Creatinine 0.82, Estim Creat Clear Calc 68.51, Est GFR (MDRD) Af Amer 94, Est GFR (MDRD) Non-Af 78, BUN/Creatinine Ratio 16.0, Glucose 116 H, Calcium 8.7, Troponin I High Sens 34 11/06/22 18:45: Troponin I High Sens 34 11/07/22 03:28: Sodium 146 H, Potassium 3.9, Chloride 118 H, Carbon Dioxide 26.0, Anion Gap 2 L, BUN 11, Creatinine 0.50 L, Estim Creat Clear Calc 111.34, Est GFR (MDRD) Af Amer 167, Est GFR (MDRD) Non-Af 138, BUN/Creatinine Ratio 22.2 H, Glucose 95, Calcium 8.1 L, Magnesium 2.0 11/07/22 03:28: Troponin I High Sens 34 Micro: Microbiology 11/06/22 18:19 Nasal Secretion SARS-CoV-2 & FLU Antigen (Rapid) - Final SARS-CoV-2 (COVID 19) Cardiology Labs/Tests 11/06/22 16:00: WBC 6.1, RBC 4.40, Hgb 13.3, Hct 40.3, MCV 91.6, MCH 30.2, MCHC 33.0, Plt Count 255, MPV 10.8, Immature Gran % (Auto) 0.200, Neut % (Auto) 41.2 L, Lymph % (Auto) 46.9 H, [place] % (Auto) 9.1, Eos % (Auto) 1.8, Baso % (Auto) 0.8, Absolute Neuts (auto) 2.5, Nucleated RBC % 0 11/06/22 16:00: Sodium 140, Potassium 3.4 L, Chloride 109 H, Carbon Dioxide 26.0, Anion Gap 5, BUN 13, Creatinine 0.82, Est GFR (MDRD) Af Amer 94, Est GFR ( MDRD) Non-Af 78, BUN/Creatinine Ratio 16.0, Glucose 116 H, Calcium 8.7 11/07/22 03:28: Sodium 146 H, Potassium 3.9, Chloride 118 H, Carbon Dioxide 26.0, Anion Gap 2 L, BUN 11, Creatinine 0.50 L, Est GFR (MDRD) Af Amer 167, Est GFR (MDRD) Non-Af 138, BUN/Creatinine Ratio 22.2 H, Glucose 95, Calcium 8.1 L, Magnesium 2.0 Rhythm: EKG: ECHO: Stress Test: Cardiac Cath: PCI: CT Surgery: Holter monitor: EPS: PPM: CXR: Chest CT Scan: Radiography Diagnostic Testing: Radiology Impression Chest X-Ray 11/06/22 16:15 IMPRESSION: Normal x-ray examination of the chest. Electronically Signed: Jn Rothman MD at 16:35 EST Reading Location ID and State: [facility] / [place] , Service support , Physical Exam Const alert, oriented x3 and no apparent distress General Appearance: cooperative HEENT hearing grossly normal bilaterally Head and Scalp: atraumatic Eyes EOMs intact bilaterally Neck General: normal visual inspection Chest inspection of chest normal and palpation of chest normal Resp normal respiratory effort Auscultation: clear to auscultation bilaterally Cardio regular rate, regular rhythm, S1 normal heart sound and S2 normal heart sound Jugular Venous Distention: JVD GI normal to inspection, nondistended, normoactive bowel sounds Extremity normal capillary refill and no pedal edema Peripheral Pulses: Yes pulses 2+ throughout and femoral pulses present Skin no rashes or lesions noted Neuro oriented x3 and CN's II-XII intact bilaterally Psych Appearance: grossly normal and appropriate Assessment & Plan Assessment/Plan (1) Chest pain: PLAN: She presents with chest discomfort which has some atypical features. My recommendation at this time would be to cycle her cardiac enzymes which are thus far negative and obtain a pharmacologic myocardial perfusion stress test. With her last cardiac catheterization a year ago I do not feel inclined to repeat the above. Depending on the findings further recommendations will be made. * Will await the results of her stress test and echocardiogram. (2) Syncope: PLAN: It is not clear to me whether she really had a syncopal episode or a near syncopal episode. We will once again reevaluate her left ventricular function for risk stratification. If the above is noted to be normal I would suggest that she have a 30-day event monitor and follow her up as an outpatient. Thank you for allowing me to participate in the care of your patient. Please don't hesitate to call if any issues arise.
--- NOTE | 2022-11-07 08:58 | NURSING ---
This RN responded to call from DISTRIBUTION DISPATCHER that was attempting to take patient down for her stress test. Patient was very agitated when I walked into the room and was refusing to go to her stress test because she didn't want to wait around all day. She was also demanding to have her IV removed stating that she didn't need it anymore. I informed her that it was her right to not have these things or tests performed but we would be very limited in services that we could provide without proper testing and IV access. She became even more agitated and said she wanted to leave. I removed her IV while a DISTRIBUTION DISPATCHER brought AMA papers, the patient signed and stated she understands that it might be dumb but I'm not sitting around here all day. Dr Younger notified.
--- NOTE | 2022-11-07 13:34 | PCM.HOSP.N ---
Hospitalist Note Pt left AMA prior to being seen
== END 2022-11-07 09:21 | disposition left against medical advice (07) ==
LOC: ED 17:34 → PCU 11-07 00:26
PROVIDERS: Emergency Provider Emergency Medicine; PCP Internal Medicine; Visit Provider Internal Medicine
DX: I25.110 Atherosclerotic heart disease of native coronary artery with unstable angina pectoris (principal); U07.1 COVID-19; Z95.5 Presence of coronary angioplasty implant and graft; E78.00 Pure hypercholesterolemia, unspecified; E87.6 Hypokalemia; R55 Syncope and collapse; Z53.21 Procedure and treatment not carried out due to patient leaving prior to being seen by health care provider; F17.210 Nicotine dependence, cigarettes, uncomplicated; Z79.82 Long term (current) use of aspirin; I10 Essential (primary) hypertension; I49.3 Ventricular premature depolarization; Z79.02 Long term (current) use of antithrombotics/antiplatelets; Z79.899 Other long term (current) drug therapy; K21.9 Gastro-esophageal reflux disease without esophagitis; I25.2 Old myocardial infarction
CPT/HCPCS: J7030 ×2; 36415; 71045; 80048; 83735; 84484; 85025; 87428; 93005; 96360; 96361; 99285

== ENCOUNTER 2023-01-04 11:29 | Emergency (ER) | payer MEDICAID, SELFPAY ==
[2023-01-04 11:29] VITALS: BP 152/97; PULSE 72; RESP 18; TEMP 36; O2SAT 98; BMI 20.2
--- NOTE | 2023-01-04 13:05 | CT_ITS ---
STUDY: CT BRAIN WITHOUT CONTRAST REASON FOR EXAM: Female, 52 years old. Injury/Pain following a fall down 20 steps. Headache. RADIATION DOSAGE (If Supplied By Facility): CTDIvol = ( 44.99 ) mGy, DLP = ( 762.36 ) mGycm TECHNIQUE: Transaxial CT imaging of the brain was performed without administration of intravenous contrast material. Individualized dose optimization techniques were used for this CT. COMPARISON: Comparison is made with prior study dated June 15, 2016. FINDINGS: Normal soft tissue structures. Normal calvarium. Normal size ventricles and extra-axial spaces for the patient''s age. Normal white matter tracts of the cerebral hemispheres. Normal basal ganglia and thalami. Normal brainstem. Normal cerebellum. There is no intracranial hemorrhage. There are no findings of an acute ischemic infarction. Normal visualized paranasal sinuses. CT/Brain/Head without Contrast IMPRESSION: Normal unenhanced CT scan of the brain. Electronically Signed: Khris Allen MD at 13:55 EDT ,
--- NOTE | 2023-01-04 13:05 | CT_ITS ---
STUDY: CT CERVICAL SPINE WITHOUT CONTRAST REASON FOR EXAM: Female, 52 years old. Neck pain due to a fall. RADIATION DOSAGE (If Supplied By Facility): CTDIvol = ( 14.25 ) mGy, DLP = ( 255.35 ) mGycm TECHNIQUE: High resolution transaxial imaging was performed without contrast material. Sagittal and coronal images were reconstructed. Individualized dose optimization techniques were used for this CT. COMPARISON: Comparison is made with prior study June 15, 2016. FINDINGS: Normal craniovertebral junction. There are degenerative changes of the anterior atlantoaxial articulation. Normal odontoid process. There is straightening of the normal cervical lordosis. Normal vertebral bodies and posterior osseous elements. C2-3: Normal endplates. Normal disc height and morphology. Normal central canal and intervertebral neuroforamina. C3-4: Facet joint osteoarthritis and hypertrophy on the left side with uncovertebral arthrosis. Moderate degree of the left neural foraminal stenosis. C4-5: Mild degree of disc space narrowing. Uncovertebral arthrosis. No significant stenosis seen. C5-6: Marked degree of disc space narrowing. Spondylosis. Uncovertebral arthrosis. Mild bilateral neural foraminal stenosis. C6-7: Moderate degree of disc space narrowing. Spondylosis. Uncovertebral arthrosis. Mild degree of bilateral neural foraminal stenosis. C7-T1: Normal endplates. Normal disc height and morphology. Normal central canal and intervertebral neuroforamina. Normal visualized soft tissue structures. CT/Spine Cervical without Contras IMPRESSION: Multilevel degenerative changes, as described above. Electronically Signed: Khris Allen MD at 13:57 EDT ,
[2023-01-04] MEDS: Ondansetron ODT 4 MG Tablet PO (13:16)
[2023-01-04] MEDS: Morphine 4 MG/ML Syringe IM (13:16)
--- NOTE | 2023-01-04 13:25 | RAD_ITS ---
STUDY: X-RAY - UNILATERAL RIBS ( RIGHT ) WITH CHEST REASON FOR EXAM: Female, 52 years old. Right chest wall pain following a recent fall. TECHNIQUE - RIBS: 3 view(s) of the ribs. TECHNIQUE - CHEST: Single PA view of the chest. COMPARISON: None. FINDINGS - RIBS: Normal visualized ribs without a demonstrated fracture. FINDINGS - CHEST: Hyperinflation. The lungs are clear. There is no demonstrated pleural abnormality. Normal size heart. Normal mediastinum and hai. Normal visualized pulmonary arteries. Normal visualized aortic arch and descending thoracic aorta. Normal visualized thoracic spine. Normal visualized ribs, clavicles, and shoulders. There is no demonstrated abnormality of the visualized soft tissue structures of the upper abdomen. RAD/Ribs Uni Min 3V w/PA Chest IMPRESSION: RIBS: Normal x-ray examination of the ribs. CHEST: Hyperinflation. The lungs are clear. Electronically Signed: Khris Allen MD at 13:46 EDT ,
--- NOTE | 2023-01-04 13:25 | RAD_ITS ---
STUDY: X-RAY - RIGHT SHOULDER REASON FOR EXAM: Female, 52 years old. Injury/Pain TECHNIQUE: 4 view(s) of the shoulder. COMPARISON: None. FINDINGS: Normal glenohumeral articulation. Normal acromioclavicular joint. Normal acromion. Normal humeral head and visualized proximal humerus. The soft tissue structures are unremarkable. Normal visualized pulmonary apex. RAD/Shoulder min 2 Views IMPRESSION: Normal x-ray examination of the shoulder. Electronically Signed: Khris Allen MD at 13:47 EDT ,
[2023-01-04 14:42] VITALS: BP 121/82; PULSE 66; RESP 16; O2SAT 99
--- NOTE | 2023-01-04 14:55 | EX.ED.GENINJ ---
HPI History of Present Illness Chief Complaint: Fall Informant: patient Narrative Narrative: Patient is a 52-year-old female presenting for neck pain and right shoulder pain after fall. Patient states a week ago she was moving a box when she lost her footing and fell down a flight of steps in her house. She states it was 18 steps but she states it was just 1 flight of stairs. She denies any loss of conscious. She notes she landed on her right shoulder. States she was okay for a few days but then for the past 3 to 4 days she had worsening pain in the back of her head, neck and right shoulder. She also has pain in her right chest. She states her fingers feel prickly on the right side diffusely. She denies any difficulty breathing. She has not taken anything for the pain including Tylenol ibuprofen because I am a heart patient and I am afraid to take medicines. She is on Plavix. She notes that hot showers do seem to help. No other complaints at this time. [facility] Medical History Anemia Anxiety and depression Atherosclerotic heart disease of [place] coronary artery without angina pectoris Cardiac enzymes elevated Cervical cancer Colon cancer screening Essential hypertension GERD (gastroesophageal reflux disease) Health care maintenance HLD (hyperlipidemia) Insomnia Left ankle pain Malaise and fatigue Nonsustained paroxysmal ventricular tachycardia Seasonal allergies STEMI (ST elevation myocardial infarction) Tobacco abuse Home Medications aspirin 81 mg capsule 81 mg PO DAILY #30 caps 09/07/21 [Rx Last Taken 12/03/21 10:00] nitroglycerin 0.4 mg sublingual tablet 0.4 mg sublingual Q5-15M PRN chest pain #25 tabs 12/28/21 [Rx Last Taken Unknown] escitalopram oxalate 10 mg tablet 10 mg PO DAILY #60 tabs 10/09/22 [Rx Last Taken Unknown] mirtazapine 7.5 mg tablet 7.5 mg PO QHS #30 tabs 10/09/22 [Rx Last Taken Unknown] atorvastatin 80 mg tablet 80 mg PO DAILY cholesterol #90 tabs 10/11/22 [Rx Last Taken Unknown] clopidogrel 75 mg tablet (Plavix) 75 mg PO DAILY #90 tabs 10/11/22 [Rx Last Taken Unknown] lisinopril 2.5 mg tablet 2.5 mg PO DAILY #90 tabs 10/11/22 [Rx Last Taken Unknown] metoprolol succinate 25 mg tablet,extended release 24 hr 25 mg PO DAILY #90 tabs 10/11/22 [Rx Last Taken Unknown] pantoprazole 40 mg tablet,delayed release 40 mg PO DAILY #90 tabs 10/11/22 [Rx Last Taken Unknown] tizanidine 4 mg tablet (Zanaflex) 4 mg PO Q8H PRN muscle spasticity #10 tabs 01/04/23 [Rx Last Taken Unknown] Allergy/AdvReac Type Severity Reaction Status Date / Time albuterol Allergy Mild unknown Verified 01/04/23 11:31 penicillin V Allergy Mild unkonwn Verified 01/04/23 11:31 amoxicillin Allergy Hives Verified 01/04/23 11:31 Family History Other Alcoholism Anemia Anxiety Arthritis CVA (cerebral vascular accident) Cancer Cervical cancer Colon cancer DVT (deep venous thrombosis) Depression Diabetes Heart disease High cholesterol Hypertension Myocardial infarction Ovarian cancer Thyroid disorder Surgical History History of coronary artery stent placement (08/08/21) History of hysterectomy History of intravascular stent placement History of left heart catheterization (12/05/21) Social History Smoking Status: Current every day smoker tobacco type: cigarettes Tobacco: How many years used: 30 alcohol intake: never substance use type: former substance user and marijuana what type of physical activity do you participate in: none ROS ROS ED Constitutional Constitutional ED: Denies chills or fever(s) Eyes Eyes: Denies blurry vision or change in vision Cardiovascular Cardiovascular: Reports chest pain; Denies palpitations Respiratory/Chest Respiratory/Chest: Denies cough or dyspnea Gastrointestinal Gastrointestinal: Denies abdominal pain, nausea or vomiting Musculoskeletal Musculoskeletal: Reports arthralgias, back pain, myalgias and neck pain Integumentary Denies Abrasions or rash Neurologic Neurologic: Reports headache(s) and paresthesias; Denies weakness Psychiatric Psychiatric: Reports anxiety Hematologic/Lymphatic Hematologic/Lymphatic: Denies easy bleeding or easy bruising EXAM Physical Exam Const Vital Signs: 01/04/23 11:29 01/04/23 14:42 Temperature 96.8 F L Temperature Source Temporal Pulse Rate 72 66 Respiratory Rate 18 16 Blood Pressure 152/97 H 121/82 H Blood Pressure Mean 115 95 Pulse Ox 98 99 Oxygen Delivery Method Room Air Room Air Positive well nourished and well developed General Appearance ED: well developed and NAD HEENT atraumatic Nose: Negative for septum abnormal Eyes PERRL and EOMs intact bilaterally Neck full ROM Neck Narrative: No midline tenderness. Right diffuse paraspinal tenderness to palpation, most pronounced in the lower neck General: tenderness Chest Wall Chest Narrative: mild right upper chest wall TTP. No chest wall crepitus. Some soft tissue swelling of right lateral chest wall/right pectoralis region. No ecchymosis of the chest wall appreciated. No flail chest segment. Resp normal respiratory effort and clear to auscultation bilaterally Cardio regular rhythm and no murmurs Rate: regular rate GI normal to inspection, nondistended, normoactive bowel sounds and non-tender Back/Spine normal to inspection Extremity normal to inspection and full ROM Extremity Narrative: Mild tenderness palpation diffusely of the right shoulder but no deformity appreciated. Range of motion preserved. Tenderness palpation of the right trapezius muscle. General Extremety ED: Negative for deformity General Extremity: Negative for deformity Neuro oriented x3, moves all extremities, no focal motor deficits and no sensory deficits noted [place] Coma Scale: document GCS findings Spontaneous Obeys Commands Oriented 15 Motor Exam: strength 5/5 throughout Psych mental status grossly normal Mood & Affect: anxious Skin no rashes or lesions noted and no wounds MDM MDM MDM Narrative Medical decision making narrative: Patient evaluated for injuries associated with a fall down a flight of stairs. It happened a week ago. She has a normal neurologic exam at this point. No obvious signs of trauma on physical exam. Given mechanism of injury I did obtain a CT of her brain, cervical spine as well as rib series and shoulder x-ray. Plain films turbid by myself as well as radiology. All imaging does not show any acute process however she does have multilevel degenerative changes on her CT. Patient is given a dose of IM morphine in the ER with improvement of her symptoms. Her pain is reproducible with palpation of the right trapezius and I suspect this is more muscular pain. Patient could have a slight radiculopathy as she does have tingling in her hands however it does not follow a dermatomal pattern. Will be placed on a course of muscle relaxers with tizanidine as well as Lidoderm patches. Patient is agreeable this plan of care. She is given return precautions. She is discharged home in stable condition. Radiography Diagnostic Testing: Clinical Impression(s) from Imaging Studies Brain CT 01/04/23 13:05 IMPRESSION: Normal unenhanced CT scan of the brain. Electronically Signed: Khris Allen MD at 13:55 EDT , Cervical Spine CT 01/04/23 13:05 IMPRESSION: Multilevel degenerative changes, as described above. Electronically Signed: Khris Allen MD at 13:57 EDT , Ribs w/Chest X-Ray 01/04/23 13:25 IMPRESSION: RIBS: Normal x-ray examination of the ribs. CHEST: Hyperinflation. The lungs are clear. Electronically Signed: Khris Allen MD at 13:46 EDT , Shoulder X-Ray 01/04/23 13:25 IMPRESSION: Normal x-ray examination of the shoulder. Electronically Signed: Khris Allen MD at 13:47 EDT , Discharge Plan Triage Chief Complaint: Fall Other Complaint: Headache Other, Pain/Inj ED Provider: Luisa Sandoval Dx/Rx/DC Orders Clinical Impression: Acute strain of neck muscle, Fall down stairs, Closed head injury Instructions: ED Mechanical Fall, ED Neck Sprain or Strain Prescriptions: New tizanidine [Zanaflex] 4 mg tablet 4 mg PO Q8H PRN (Reason: muscle spasticity) Qty: 10 0RF No Action nitroglycerin 0.4 mg tablet, sublingual 0.4 mg sublingual Q5-15M PRN (Reason: chest pain) Qty: 25 3RF Rx Instructions: do not exceed 3 doses per episode escitalopram oxalate 10 mg tablet 10 mg PO DAILY Qty: 60 1RF mirtazapine 7.5 mg tablet 7.5 mg PO QHS Qty: 30 1RF pantoprazole 40 mg tablet,delayed release (DR/EC) 40 mg PO DAILY Qty: 90 3RF aspirin 81 mg capsule 81 mg PO DAILY Qty: 30 11RF atorvastatin 80 mg tablet 80 mg PO DAILY Qty: 90 3RF clopidogrel [Plavix] 75 mg tablet 75 mg PO DAILY Qty: 90 3RF metoprolol succinate 25 mg tablet extended release 24 hr 25 mg PO DAILY Qty: 90 3RF lisinopril 2.5 mg tablet 2.5 mg PO DAILY Qty: 90 3RF Primary Care Provider: Mk Drake Referrals: Mk Drake MD [Primary Care Provider] - Activity Restrictions/Additional Instructions: Your work-up did not show any acute injury such as broken bones, neck fracture, shoulder dislocation or brain trauma. For a short course you can alternate ibuprofen and Tylenol for pain. You been prescribed a short course of muscle relaxer (tizanidine). You can break it in half if needed. Please follow with your primary care doctor. Return if you have a progression or worsening of your symptoms or further concerns Disposition Disposition: Home, Self Care Discharge Date/Time: 01/04/23 15:29
[2023-01-04] MEDS: Lidocaine 5% Patch 1 PATCH TOPICAL (15:26)
== END 2023-01-04 15:29 | disposition home or self-care (01) ==
PROVIDERS: Emergency Provider Emergency Medicine; PCP Internal Medicine; Visit Provider Emergency Medicine
DX: S16.1XXA Strain of muscle, fascia and tendon at neck level, initial encounter (principal); I21.3 ST elevation (STEMI) myocardial infarction of unspecified site; I10 Essential (primary) hypertension; F17.210 Nicotine dependence, cigarettes, uncomplicated; I25.10 Atherosclerotic heart disease of native coronary artery without angina pectoris; E78.5 Hyperlipidemia, unspecified; Z79.02 Long term (current) use of antithrombotics/antiplatelets; S09.8XXA Other specified injuries of head, initial encounter; W10.8XXA Fall (on) (from) other stairs and steps, initial encounter; Y92.008 Other place in unspecified non-institutional (private) residence as the place of occurrence of the external cause; Z79.82 Long term (current) use of aspirin; I25.2 Old myocardial infarction; Z79.899 Other long term (current) drug therapy; K21.9 Gastro-esophageal reflux disease without esophagitis; F41.8 Other specified anxiety disorders; Z95.5 Presence of coronary angioplasty implant and graft; Z95.828 Presence of other vascular implants and grafts
CPT/HCPCS: 70450; 71101; 72125; 73030; 96372; 99283

== ENCOUNTER 2023-03-04 17:03 | Emergency (ER) | payer MEDICAID, SELFPAY ==
[2023-03-04 17:04] VITALS: BP 138/75; PULSE 84; RESP 16; TEMP 36.6; O2SAT 99; BMI 20.8
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
[2023-03-04] MEDS: Diphth,Pertuss(Acell),Tet Vac 0.5 ML Vial IM (17:39)
[2023-03-04] MEDS: Lidocaine 1% (20 ml mdv) 20 ML Vial 10 ML INFILT (17:40)
[2023-03-04] MEDS: Ondansetron ODT 4 MG Tablet PO (18:33)
== END 2023-03-04 18:37 | disposition home or self-care (01) ==
PROVIDERS: Emergency Provider Emergency Medicine; PCP Internal Medicine; Visit Provider Emergency Medicine
DX: S61.012A Laceration without foreign body of left thumb without damage to nail, initial encounter (principal); Y04.8XXA Assault by other bodily force, initial encounter; I10 Essential (primary) hypertension; E78.5 Hyperlipidemia, unspecified; F17.210 Nicotine dependence, cigarettes, uncomplicated; I25.10 Atherosclerotic heart disease of native coronary artery without angina pectoris; Z23 Encounter for immunization; Z95.5 Presence of coronary angioplasty implant and graft; Z90.710 Acquired absence of both cervix and uterus; Z79.82 Long term (current) use of aspirin; Z79.899 Other long term (current) drug therapy; Z79.02 Long term (current) use of antithrombotics/antiplatelets; K21.9 Gastro-esophageal reflux disease without esophagitis; F41.8 Other specified anxiety disorders
CPT/HCPCS: 12001; 90715; 99283

== ENCOUNTER → 2023-10-18 | Outpatient (CLI) | payer MEDICAID, SELFPAY ==
[2023-10-18 16:47] LABS: Absolute Lymphocyte Count 2.31 X10^3/uL (0.83-4.51); Absolute Neutrophil Count 5.9 X10^3/uL (2.0-7.7); Basophil# 0.06 X10^3/uL; Basophil% 0.7 % (0-1); Eosinophil# 0.04 X10^3/uL; Eosinophils% 0.5 % (0-5); Hematocrit 41.8 % (37-47); Hemoglobin 13.9 g/dL (12.0-15.0); Lymphocyte # 2.31 X10^3/ul (0.83-4.51); Lymphocyte % 26.3 % (19-41); Mean Corp Hgb Conc 33.3 g/dL (32-36); Mean Corpuscular Volume 90.3 fL (81-99); Mean Platelet Vol. 10.3 fl (6.2-12.0); Monocyte# 0.44 X10^3/uL; NRBC Flagged by Analyzer 0 % (0-5); Neutrophil % 67.2 % (47-70); Platelet Count 282 K/mm3 (150-450); RBC Distribution Width CV 13.4 % (11.6-14.6); RBC Distribution Width SD 44.4 fl (35.1-43.9); Red Blood Count 4.63 M/mm3 (4.2-5.4); White Blood Count 8.8 K/mm3 (4.4-11.0)
[2023-10-18 17:09] LABS: AST(SGOT) 14 U/L (15-37); Alanine Aminotransfer ALT/SGPT 20 U/L (13-56); Albumin, Serum 3.8 g/dL (3.2-5.0); Alkaline Phosphatase 79 U/L (45-117); Anion Gap 8 (5-15); BUN 11 mg/dL (7-18); Calcium,Total 9.2 mg/dL (8.5-10.1); Chloride 106 mmol/L (98-107); Cholesterol 147 mg/dL (200); Creatinine, Serum 0.84 mg/dL (0.55-1.02); EST Glomerular Filtration Rate 75 mL/min (>60); Est Glom Filt Rate - Afr Amer 90 mL/min (>60); Glucose 129 mg/dL (74-106); High Density Lipoprotein 57 mg/dL; Potassium 3.5 mmol/L (3.5-5.1); Protein, Total 7.8 g/dL (6.4-8.2); Sodium Level 141 mmol/L (136-145); Triglycerides 96 mg/dL; Very Low Density Lipoprotein 19 mg/dL (5-40)
== END | disposition home or self-care (01) ==
LOC: BIMLAB 15:12
PROVIDERS: PCP Internal Medicine; Visit Provider Internal Medicine
DX: E78.5 Hyperlipidemia, unspecified (principal); F41.9 Anxiety disorder, unspecified; F32.A Depression, unspecified
CPT/HCPCS: 36415; 80053; 80061; 85025

== ENCOUNTER 2023-12-31 12:37 | Emergency (ER) | payer MEDICAID, SELFPAY ==
[2023-12-31 12:39] VITALS: BP 111/78; PULSE 89; RESP 22; TEMP 36.2; O2SAT 99; BMI 24.0
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
[2023-12-31] MEDS: Ondansetron 4 MG/2 ML Vial IV (13:10)
[2023-12-31] MEDS: Morphine 4 MG/ML Syringe IV (13:10)
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
[2023-12-31 13:39] VITALS: BP 123/80; PULSE 87; RESP 16; O2SAT 99
[2023-12-31 14:00] VITALS: BP 107/81; PULSE 79; RESP 18; O2SAT 98
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
[2023-12-31 15:00] VITALS: BP 102/76; PULSE 84; RESP 16; O2SAT 99
[2023-12-31] MEDS: HYDROcodone Bitartrate/Apap 5/325 Tablet PO (15:07)
== END 2023-12-31 15:43 | disposition home or self-care (01) ==
PROVIDERS: Emergency Provider Emergency Medicine; PCP Internal Medicine; Visit Provider Emergency Medicine
DX: S22.088A Other fracture of T11-T12 vertebra, initial encounter for closed fracture (principal); Y04.8XXA Assault by other bodily force, initial encounter; S09.90XA Unspecified injury of head, initial encounter; I25.10 Atherosclerotic heart disease of native coronary artery without angina pectoris; Z95.5 Presence of coronary angioplasty implant and graft; S20.229A Contusion of unspecified back wall of thorax, initial encounter; I10 Essential (primary) hypertension; E78.5 Hyperlipidemia, unspecified; Y93.01 Activity, walking, marching and hiking; Y92.830 Public park as the place of occurrence of the external cause; Z85.41 Personal history of malignant neoplasm of cervix uteri; I25.2 Old myocardial infarction; Z79.899 Other long term (current) drug therapy; Z79.82 Long term (current) use of aspirin; Z79.02 Long term (current) use of antithrombotics/antiplatelets; F41.8 Other specified anxiety disorders; K21.9 Gastro-esophageal reflux disease without esophagitis; Z90.710 Acquired absence of both cervix and uterus; F17.210 Nicotine dependence, cigarettes, uncomplicated
CPT/HCPCS: 70450; 72072; 72125; 72131; 96374; 96375; 99282; J2405

== ENCOUNTER 2024-01-02 12:26 | Emergency (ER) | payer MEDICAID, SELFPAY ==
[2024-01-02 12:27] VITALS: BP 125/94; PULSE 94; RESP 16; TEMP 36.2; O2SAT 100; BMI 18.8
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
[2024-01-02] MEDS: Ondansetron 4 MG/2 ML Vial IV (13:21)
[2024-01-02] MEDS: Morphine 4 MG/ML Syringe IV (13:21)
[2024-01-02] MEDS: 0.9% Normal Saline (1000mL) 1,000 ML 1000 ML IV (13:22)
[2024-01-02 13:25] LABS: Bacteria 0 SEEN /hpf (None Seen); Mucous, Urine 0 SEEN /hpf (<or=2+)
[2024-01-02 13:30] LABS: Absolute Neutrophil Count 7.3 X10^3/uL (2.0-7.7); Basophil# 0.06 X10^3/uL; Basophil% 0.6 % (0-1); Eosinophil# 0.15 X10^3/uL; Eosinophils% 1.5 % (0-5); Hemoglobin 13.5 g/dL (12.0-15.0); Lymphocyte % 18.7 % (19-41); Mean Corp Hgb Conc 33.8 g/dL (32-36); Mean Corpuscular Hgb 30.2 pg (27.0-32.0); Mean Corpuscular Volume 89.5 fL (81-99); Mean Platelet Vol. 9.9 fl (6.2-12.0); Monocyte# 0.74 X10^3/uL; Monocyte% 7.3 % (0-10); NRBC Flagged by Analyzer 0 % (0-5); Neutrophil # 7.25 X10^3/uL (2.7-7.7); Neutrophil % 71.5 % (47-70); Platelet Count 210 K/mm3 (150-450); RBC Distribution Width SD 42.6 fl (35.1-43.9); Red Blood Count 4.47 M/mm3 (4.2-5.4); White Blood Count 10.1 K/mm3 (4.4-11.0)
[2024-01-02 13:34] LABS: Color, Urine Yellow (Yellow); Glucose, Dipstick Normal (Normal); Ketone-Dipstick 5 mg/dl (Negative); Leukocyte Esterase-Dipstick 25 /ul (Negative); Nitrite-Dipstick Negative (Negative); Occult Blood-Urine 150 /ul (Negative); Protein-Dipstick 30 mg/dl (Negative); Specific Gravity, Urine 1.025 (1.002-1.030); Urine Clarity Clear (Clear); Urine Urobilinogen 4 mg/dl (Normal)
[2024-01-02 13:42] LABS: Urine Bilirubin Dipstick 1 mg/dL (Negative)
[2024-01-02 13:44] LABS: Red Blood Cells-Urine 0-5 SEEN /hpf (0-5); Squamous Epithelial Cells - UA 0-5 SEEN /hpf (5-10); White Blood Cells 0-5 SEEN /hpf (0-5)
[2024-01-02 13:50] LABS: AST(SGOT) 19 U/L (15-37); Alanine Aminotransfer ALT/SGPT 20 U/L (13-56); Albumin, Serum 3.7 g/dL (3.2-5.0); Alkaline Phosphatase 74 U/L (45-117); Anion Gap 1 (5-15); BUN 11 mg/dL (7-18); BUN/Creat Ratio 16.4 RATIO (10-20); Bilirubin, Direct 0.21 mg/dL (0.00-0.30); Calcium,Total 9.4 mg/dL (8.5-10.1); Chloride 107 mmol/L (98-107); Creatinine, Serum 0.67 mg/dL (0.55-1.02); EST Glomerular Filtration Rate 97 mL/min (>60); Est Glom Filt Rate - Afr Amer 118 mL/min (>60); Estimated Creatinine Clearance 75.47 ml/min; Globulin 4.6 g/dL (2.2-4.2); Glucose 104 mg/dL (74-106); Lipase 31 U/L (13-75); Potassium 3.6 mmol/L (3.5-5.1); Protein, Total 8.3 g/dL (6.4-8.2); Sodium Level 136 mmol/L (136-145)
[2024-01-02 15:16] VITALS: BP 118/65; PULSE 78; RESP 16; TEMP 37.1; O2SAT 100
== END 2024-01-02 15:20 | disposition home or self-care (01) ==
PROVIDERS: Emergency Provider Emergency Medicine; PCP Internal Medicine; Visit Provider Emergency Medicine
DX: R10.2 Pelvic and perineal pain (principal); F17.210 Nicotine dependence, cigarettes, uncomplicated; Z59.00 Homelessness unspecified; I25.10 Atherosclerotic heart disease of native coronary artery without angina pectoris; I10 Essential (primary) hypertension; E78.5 Hyperlipidemia, unspecified; I25.2 Old myocardial infarction; Z79.82 Long term (current) use of aspirin; Z79.899 Other long term (current) drug therapy; Z79.02 Long term (current) use of antithrombotics/antiplatelets; F41.8 Other specified anxiety disorders; K21.9 Gastro-esophageal reflux disease without esophagitis; Z95.5 Presence of coronary angioplasty implant and graft; Z90.710 Acquired absence of both cervix and uterus
CPT/HCPCS: 71260; 74177; 80048; 80076; 81001; 83690; 85025; 96361; 96374; 96375; 99283; J7030; Q9967; A4216; J2405

== ENCOUNTER → 2024-02-11 | Outpatient (CLI) | payer MEDICAID, SELFPAY ==
[2024-02-11 20:13] LABS: Mucous, Urine 0 SEEN /hpf (<or=2+); Red Blood Cells-Urine 0 SEEN /hpf (0-5)
[2024-02-11 20:17] LABS: Color, Urine Straw (Yellow); Glucose, Dipstick Normal (Normal); Ketone-Dipstick Negative (Negative); Leukocyte Esterase-Dipstick 500 /ul (Negative); Nitrite-Dipstick Negative (Negative); Occult Blood-Urine 10 /ul (Negative); Protein-Dipstick Negative (Negative); Specific Gravity, Urine 1.005 (1.002-1.030); Urine Bilirubin Dipstick Negative (Negative); Urine Clarity Clear (Clear); Urine Urobilinogen Normal (Normal); Urine pH 6.5 (5.0 - 8.0)
[2024-02-11 20:30] LABS: Bacteria 1+ /hpf (None Seen); Squamous Epithelial Cells - UA 0-5 SEEN /hpf (5-10); White Blood Cells 5-10 SEEN /hpf (0-5)
== END | disposition home or self-care (01) ==
PROVIDERS: PCP Internal Medicine; Referring Provider Nurse Practitioner; Visit Provider Nurse Practitioner
DX: N39.0 Urinary tract infection, site not specified (principal)
CPT/HCPCS: 81001; 87077; 87086; 87088; 87186

== ENCOUNTER 2024-04-08 14:33 | Emergency (ER) | payer MEDICAID, SELFPAY ==
[2024-04-08 14:33] VITALS: BP 156/86; PULSE 96; RESP 16; TEMP 36.2; O2SAT 98; BMI 18.9
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
--- NOTE | 2024-04-08 15:15 | RAD_ITS ---
STUDY: X-RAY - LEFT HAND REASON FOR EXAM: Female, 53 years old. Patient punched a punching bag. Lateral hand pain and swelling. TECHNIQUE: 4 view(s) of the hand. COMPARISON: None. FINDINGS: Normal radiocarpal articulation. Normal distal radioulnar joint. Normal visualized carpal bones. Normal carpal articulations Normal carpometacarpal articulation of the thumb. Normal second through fifth carpometacarpal joints. Nondisplaced transverse fracture of the distal portion of the fifth metacarpal with mild dorsal angulation in keeping with a boxer type fracture. Normal metacarpophalangeal joint of the thumb. Normal interphalangeal joint of the thumb. Normal proximal and distal phalanges of the thumb. Normal metacarpophalangeal joints of the second through fifth fingers. There is diffuse articular joint space narrowing of the proximal and distal interphalangeal joints of the second through fifth fingers, but without erosive changes or periarticular soft tissue swelling. Normal phalanges of the second through fifth fingers. Soft tissue swelling. RAD/Hand Min 3 Views IMPRESSION: Boxer fracture of the distal fifth metacarpal with mild dorsal regulation and soft tissue swelling. Degenerative changes of the interphalangeal joints more pronounced in the distal interphalangeal joints. Electronically Signed: Khris Allen MD at 15:30 EDT ,
== END 2024-04-08 16:13 | disposition home or self-care (01) ==
PROVIDERS: Emergency Provider Emergency Medicine; PCP Internal Medicine; Visit Provider Emergency Medicine
DX: S62.337A Displaced fracture of neck of fifth metacarpal bone, left hand, initial encounter for closed fracture (principal); I25.10 Atherosclerotic heart disease of native coronary artery without angina pectoris; I10 Essential (primary) hypertension; E78.5 Hyperlipidemia, unspecified; F17.210 Nicotine dependence, cigarettes, uncomplicated; Z95.5 Presence of coronary angioplasty implant and graft; Z79.82 Long term (current) use of aspirin; I25.2 Old myocardial infarction; W22.8XXA Striking against or struck by other objects, initial encounter
CPT/HCPCS: 29126; 73130; 99282

== ENCOUNTER → 2024-04-25 | Outpatient (CLI) | payer MEDICAID, SELFPAY ==
[2024-04-25 15:12] LABS: Mucous, Urine 0 SEEN /hpf (<or=2+); Red Blood Cells-Urine 0 SEEN /hpf (0-5)
[2024-04-25 15:17] LABS: Color, Urine Yellow (Yellow); Glucose, Dipstick Normal (Normal); Ketone-Dipstick Negative (Negative); Leukocyte Esterase-Dipstick 100 /ul (Negative); Nitrite-Dipstick Negative (Negative); Occult Blood-Urine 10 /ul (Negative); Protein-Dipstick Negative (Negative); Urine Bilirubin Dipstick Negative (Negative); Urine Clarity Turbid (Clear); Urine Urobilinogen Normal (Normal)
[2024-04-25 15:42] LABS: Bacteria 4+ /hpf (None Seen); White Blood Cells 50-100 SEEN /hpf (0-5)
[2024-04-25 15:43] LABS: Calcium Oxalate Crystals Ur 1+ /hpf (<or=2+); Squamous Epithelial Cells - UA 5-10 SEEN /hpf (5-10)
== END | disposition home or self-care (01) ==
PROVIDERS: PCP Internal Medicine; Referring Provider Physician Assistant; Visit Provider Physician Assistant
DX: R30.0 Dysuria (principal)
CPT/HCPCS: 81001; 87086

== ENCOUNTER → 2024-12-25 | Outpatient (CLI) | payer MEDICAID, SELFPAY ==
[2024-12-25 10:10] LABS: AST(SGOT) 24 U/L (<=31); Alanine Aminotransfer ALT/SGPT 20 U/L (<=34); Albumin, Serum 4.1 g/dL (3.5-5.0); Alkaline Phosphatase 89 U/L (35-104); Anion Gap 10 (5-15); BUN 8 mg/dL (4-19); BUN/Creat Ratio 13.6 RATIO (10-20); Bilirubin, Direct 0.11 mg/dL (0.00-0.30); Calcium,Total 9.5 mg/dL (7.6-11.0); Carbon Dioxide 26.3 mmol/L (21.0-32.0); Chloride 106 mmol/L (98-108); EST Glomerular Filtration Rate 106 (>60); Globulin 3.4 g/dL (2.2-4.2); Glucose 77 mg/dL (70-99); Potassium 4.3 mmol/L (3.3-5.1); Protein, Total 7.5 g/dL (5.9-8.4); Sodium Level 142 mmol/L (133-145); Total Bilirubin 0.29 mg/dL (0.00-1.30)
== END | disposition home or self-care (01) ==
LOC: LAB 09:08
PROVIDERS: PCP Internal Medicine; Referring Provider Nurse Practitioner Family; Visit Provider Nurse Practitioner Family
DX: R63.5 Abnormal weight gain (principal); I10 Essential (primary) hypertension; Z95.5 Presence of coronary angioplasty implant and graft
CPT/HCPCS: 36415; 80048; 80076; 84439; 84443